=== PATIENT | male | born 1950 | race Caucasian/White ===

== ENCOUNTER 2020-08-13 20:20 | Inpatient (IN) | payer MEDICARE, OTHER ==
[~2020-08-13] VITALS: Ht 175.3 cm; Wt 71.6 kg
[2020-08-13] MEDS ORDERED: ACETAMINOPHEN 650 MG SUPP (TYLENOL) PR PRN (21:30)
[2020-08-13] MEDS ORDERED: PHARMACY TO DOSE IV SCH (21:30)
--- NOTE | 2020-08-13 21:40 | Progress Note ---
Progress Note This is a 70yoWM clinic patient of Dr Dave known to me from prior senior behavioral unit admit 04/2019 who has a h/o severe COPD and PNA who [place] [facility] with [place]ezing and in acute respiratory insufficiency. Hour long nebs helped a lot but he remained severely wheezy. IV steroids initiated along with empiric abx for atypical PNA and was swabbed for COVID and rapid was negative but PCT pending since he has not had COVID vaccine. He is and is a marie. He is a current smoker. His , Melissa, has been updated at [phone] and I updated her on details and the critical nature of his illness. She reports he has been wheezing for 1 week and has been working a lot outside on the fence from sun up and dun down until he could no longer go on so he came to the ER. Pancultured in ER. Cath in place. Diprivan initiated for sedation along with Fentanyl. CXR was checked for proper ETT placement initiated by Katie GAITAN. RENNY BATES DO August 13, 2020 21:40
[2020-08-13] MEDS ORDERED: NS IV 1000 ML 1,000 ML ONE (23:06)
[2020-08-13] MEDS ORDERED: PROPOFOL DRIP (ICU) 100 ML IV ONE (23:20)
[2020-08-13] MEDS ORDERED: NOREPINEPHRINE 8 MG/250 ML 250 ML IV ONE (23:20)
[2020-08-13 23:25] VITALS: BP 161/53
[2020-08-14] VITALS (7 sets, daily range): BP systolic 98–161; BP diastolic 43–79
[2020-08-14] MEDS: PROPOFOL DRIP (ICU) 100 ML IV SCH ×6 (00:11→21:38)
[2020-08-14] MEDS: NS IV 1000 ML 1,000 ML IV SCH ×5 (00:19→21:38)
[2020-08-14] MEDS ORDERED: NS IV 500 ML 500 ML ONE (00:46)
[2020-08-14] MEDS ORDERED: VANCOMYCIN 1000 MG/VIAL ONE (00:46)
[2020-08-14] MEDS ORDERED: VANCOMYCIN 500 MG/VIAL IV ONE (00:46)
[2020-08-14] MEDS: NOREPINEPHRINE 8 MG/250 ML 250 ML IV SCH ×2 (00:52→17:21)
[2020-08-14 00:55] LABS: BASOPHILS # (AUTO) 0.1 10^3/uL (0.0-0.1); BASOPHILS % (AUTO) 0 % (0-10); EOSINOPHILS # (AUTO) 0.2 10^3/uL (0.0-0.3); EOSINOPHILS % (AUTO) 2 % (0-10); HEMATOCRIT 42 % (40-54); HEMOGLOBIN 13.6 g/dL (13.3-17.7); LYMPHOCYTES # (AUTO) 0.6 10^3/uL (1.0-4.0); LYMPHOCYTES % (AUTO) 4 % (12-44); MEAN CORPUSCULAR HEMOGLOBIN 31 pg (25-34); MEAN CORPUSCULAR HGB CONC 32 g/dL (32-36); MEAN CORPUSCULAR VOLUME 96 fL (80-99); MEAN PLATELET VOLUME 9.9 fL (9.0-12.2); MONOCYTES # (AUTO) 0.5 10^3/uL (0.0-1.0); MONOCYTES % (AUTO) 4 % (0-12); NEUTROPHILS # (AUTO) 12.1 10^3/uL (1.8-7.8); NEUTROPHILS % (AUTO) 89 % (42-75); PLATELET COUNT 169 10^3/uL (130-400); WHITE BLOOD COUNT 13.6 10^3/uL (4.3-11.0)
[2020-08-14] MEDS ORDERED: CEFEPIME 1,000 MG/SWFI 10 ML IV PUSH IV ONE ×2 (01:00)
[2020-08-14 01:08] LABS: ALBUMIN < 0.4 GM/DL (3.2-4.5); CHLORIDE 105 MMOL/L (98-107); POTASSIUM 3.8 MMOL/L (3.6-5.0); SODIUM 137 MMOL/L (135-145)
[2020-08-14 01:10] LABS: CALCIUM 7.8 MG/DL (8.5-10.1); GLUCOSE 201 MG/DL (70-105); TRIGLYCERIDES 124 MG/DL (<150)
[2020-08-14 01:12] LABS: CARBON DIOXIDE 17 MMOL/L (21-32)
[2020-08-14 01:13] LABS: BILIRUBIN,TOTAL 1.5 MG/DL (0.1-1.0)
[2020-08-14 01:14] LABS: ALKALINE PHOSPHATASE 52 U/L (40-136); CREATININE SERUM 1.02 MG/DL (0.60-1.30); GFR ESTIMATED > 60
[2020-08-14 01:15] LABS: BUN/CREATININE RATIO 18
[2020-08-14 01:17] LABS: ALANINE AMINOTRANSFERASE 10 U/L (0-55)
[2020-08-14] MEDS ORDERED: inSUlin ASPART (NovoLOG) 1 UNIT/0.01 ML (CHARGE PER UNIT) ONE (01:26)
[2020-08-14] MEDS ORDERED: VANCOMYCIN INJECTION 1,500 MG in NS IV 500 ML 500 ML IV ONE (01:30)
[2020-08-14] MEDS: inSUlin ASPART (NovoLOG) 1 UNIT/0.01 ML (CHARGE PER UNIT) SC SCH ×4 (01:36→17:36)
[2020-08-14 01:42] LABS: TOTAL PROTEIN 6.1 GM/DL (6.4-8.2)
[2020-08-14 01:43] LABS: BAND NEUTROPHILS 8 %; LYMPHOCYTES % (MANUAL) 2 %; MONOCYTES % (MANUAL) 3 %; NEUTROPHILS % (MANUAL) 87 %; RBC MORPH NORMAL
[2020-08-14] MEDS ORDERED: RT-ALBUTEROL/IPRATROPIUM 3 ML (DUONEB) VIAL INH PRN (02:00)
[2020-08-14] MEDS: RT-ALBUTEROL/IPRATROPIUM 3 ML (DUONEB) VIAL INH SCH ×6 (02:09→22:50)
[2020-08-14 05:29] LABS: BASOPHILS % (AUTO) 0 % (0-10); EOSINOPHILS % (AUTO) 0 % (0-10); HEMATOCRIT 43 % (40-54); HEMOGLOBIN 14.1 g/dL (13.3-17.7); LYMPHOCYTES # (AUTO) 0.8 10^3/uL (1.0-4.0); LYMPHOCYTES % (AUTO) 6 % (12-44); MEAN CORPUSCULAR HEMOGLOBIN 31 pg (25-34); MEAN CORPUSCULAR HGB CONC 33 g/dL (32-36); MEAN CORPUSCULAR VOLUME 95 fL (80-99); MEAN PLATELET VOLUME 10.2 fL (9.0-12.2); MONOCYTES # (AUTO) 0.6 10^3/uL (0.0-1.0); MONOCYTES % (AUTO) 4 % (0-12); NEUTROPHILS # (AUTO) 12.7 10^3/uL (1.8-7.8); NEUTROPHILS % (AUTO) 89 % (42-75); PLATELET COUNT 178 10^3/uL (130-400); WHITE BLOOD COUNT 14.2 10^3/uL (4.3-11.0)
[2020-08-14 05:30] LABS: ABG BASE EXCESS -4.9 MMOL/L (-2.5-2.5); ABG OXYGEN SATURATION 95 % (94-100); ABG PCO2 46 MMHG (35-45); ABG PO2 69 MMHG (79-93); ABG TCO2 22.5 MMOL/L (21.0-31.0)
[2020-08-14 05:32] LABS: ABG PH 7.28 (7.37-7.43); ALLENS TEST ART LINE; INSPIRED O2 30%; VENTILATOR NO
--- NOTE | 2020-08-14 05:44 | History & Physical ---
History of Present Illness HPI/Chief Complaint CC: Respiratory failure from AECOPD HPI: This is a 70yoWM clinic Pt of Dr. Dave who has a PMH of COPD and Parkinsons, he underwent emergency intubation due to rapid decline in status while at [place] [facility] to ICU admission. Central line is functioning well, procalcitonin at 0.87, IV steroids maintained, OG tube is placed and will start tube feedings today. Cefepime and Vancomycin maintained and sputum on preliminary culture at [facility] [place] shows Gram + Cocci. Source: RN/MD, old records Exam Limitations: clinical condition Date Seen 08/14/20 Time Seen by a Provider: 09:00 Attending Physician Gayle Capps DO PCP Referring Physician Date of Admission August 13, 2020 at 23:23 Home Medications & Allergies Home Medications Reviewed patient Home Medication Reconciliation performed by pharmacy medication reconciliations auto glass technician and/or nursing. Patients Allergies have been reviewed. Allergies Allergies Coded Allergies codeine (Verified Allergy, Unknown, 08/13/20) Past Ncfyqhv-Wdoslw-Fjhixt Hx Past Med/Social Hx: Reviewed Nursing Past Med/Soc Hx, Reviewed and Corrections made Patient Social History Marrital Status: Employed/Student: retired Alcohol Use: Denies Use Smoking Status: Current Everyday Smoker Past Medical History Respiratory: COPD Cardiac: Hypertension Neurological: Parkinson's Disease Genitourinary: Benign Prostatic Hyperpl Gastrointestinal: Chronic Constipation Musculoskeletal: Arthritis Review of Systems Constitutional: see HPI Physical Exam Physical Exam Vital Signs Vital Signs - First Documented 08/13/20 08/13/20 08/14/20 08/14/20 11:45 23:25 00:11 14:06 Temp 35.6 Pulse 55 Resp 16 B/P (MAP) 144/58 Pulse Ox 85 O2 Delivery Mechanical Ventilator O2 Flow Rate 30.00 FiO2 40 Capillary Refill : Height, Weight, BMI Height: '" Weight: lbs. oz. kg; 25.70 BMI Method: General Appearance: No Apparent Distress, WD/WN, Chronically ill, Other (intubated and sedated) Respiratory: No Accessory Muscle Use, No Respiratory Distress, Crackles, Decreased Breath Sounds, Wheezing Cardiovascular: Regular Rate, Rhythm Neurologic/Psychiatric: Other (sedated) Results Results/Procedures Labs Laboratory Tests 08/14/20 00:35 08/14/20 05:10 08/15/20 03:30 Patient resulted labs reviewed. Assessment/Plan Admission Diagnosis Assessment: AECOPD causing respiratory fatigue and intubation Smoker Parkinson's Infiltrates c/w PNA empirically placed on abx Leukocytosis Plan: Vent IV abx Supportive care Complex case TF to start Admission Status: Inpatient Order (span 2 midnights) Reason for Inpatient Admission: vent Diagnosis/Problems Diagnosis/Problems (1) Respiratory failure (2) COPD exacerbation (3) Smoker (4) Parkinson disease GAYLE CAPPS DO August 14, 2020 05:44
[2020-08-14 05:45] LABS: ALBUMIN 3.4 GM/DL (3.2-4.5); CHLORIDE 107 MMOL/L (98-107); POTASSIUM 3.6 MMOL/L (3.6-5.0); SODIUM 138 MMOL/L (135-145)
[2020-08-14 05:47] LABS: CALCIUM 7.7 MG/DL (8.5-10.1)
[2020-08-14 05:48] LABS: GLUCOSE 207 MG/DL (70-105); TOTAL PROTEIN 6.1 GM/DL (6.4-8.2)
[2020-08-14 05:49] LABS: CARBON DIOXIDE 18 MMOL/L (21-32)
[2020-08-14 05:50] LABS: BILIRUBIN,TOTAL 0.8 MG/DL (0.1-1.0)
[2020-08-14 05:51] LABS: ALKALINE PHOSPHATASE 54 U/L (40-136); PHOSPHORUS 2.1 MG/DL (2.3-4.7)
[2020-08-14 05:52] LABS: CREATININE SERUM 0.92 MG/DL (0.60-1.30); GFR ESTIMATED > 60
[2020-08-14 05:53] LABS: BUN/CREATININE RATIO 18
[2020-08-14 05:54] LABS: ALANINE AMINOTRANSFERASE 12 U/L (0-55); MAGNESIUM 2.1 MG/DL (1.6-2.4)
[2020-08-14] MEDS: KCL 20 MEQ TAB (K-DUR) PO SCH (06:03)
[2020-08-14] MEDS: POTASSIUM CL 10MEQ/50ML IVPB 50 ML IV SCH ×3 (06:03→07:45)
[2020-08-14] MEDS: MAGNESIUM 1 GM/100 ML IVPB 100 ML IV SCH (06:03)
[2020-08-14] MEDS: CEFEPIME 1,000 MG/SWFI 10 ML IV PUSH IV SCH ×6 (06:11→18:20)
--- NOTE | 2020-08-14 07:26 | Diagnostic Imaging Report ---
EXAMINATION: Chest 1 view HISTORY: Shortness of breath. COMPARISON: None. FINDINGS: Endotracheal tube is visualized approximately 2 cm above the alicia. A right internal jugular central line is seen with the tip overlying the cavoatrial juncture. The lung volumes are normal. No focal consolidation is seen. No large pleural effusion or pneumothorax is seen. The cardiomediastinal silhouette is normal in size and contour. No acute osseous abnormality is seen. IMPRESSION: 1. Endotracheal tube approximately 2 cm above the alicia. Consider retracting 2 cm. Appropriate configuration of the right internal jugular central line. 2. No focal consolidation or pleural effusion. Dictated by: Dictated on workstation # [id number]
--- NOTE | 2020-08-14 08:17 | Diagnostic Imaging Report ---
Portable erect AP chest at 5:01. INDICATION: Respiratory distress The heart is stable in size when compared to the prior exam of 08/13/2020. The central pulmonary vasculature remains prominent and there may be an element of mild pulmonary congestion present. There is still no focal consolidation to suggest pneumonia nor is any evidence for significant pleural effusion. There is a 2 cm oval density overlying the left upper lung. This finding was not present on the prior exam and could be extraneous to the patient. The possibility that this is related to a small focus of pneumonia should also be considered. Followup study would be recommended for continued evaluation. The mediastinum is not widened. The prior exam noted that the patient had been intubated and suggested the ET tube to be retracted approximately 2 cm. On this exam the tip of the ET tube overlies the distal alicia approximately 1.8 cm cephalad to the alicia. I would recommend that the tube be retracted 2 cm. The central venous catheter on the right seen previously is again evident and no different. There is now an NG line in place. The tip of line is not visualized but the line does extend below the diaphragm. The mediastinum is not widened. The osseous structures are intact. IMPRESSION: 1. The overall appearance of the chest is stable when compared to the prior study. No new abnormality has developed. 3. The small oval density overlying the left upper lung may be extraneous to the patient. Recommendations as above. 3. The ET tube should be retracted approximately 2 cm. Called to Vania at 8:13 a.m. by cvb. Dictated by: Dictated on workstation # [id number]
--- NOTE | 2020-08-14 08:46 | Pulmonary Consultation ---
History of Present Illness History of Present Illness Date Seen by Provider: August 14, 2020 Time Seen by Provider: 08:41 Date of Admission August 13, 2020 at 23:23 Allergies and Home Medications Allergies Coded Allergies: codeine (Verified Allergy, Unknown, 08/13/20) Home Medications Albuterol Sulfate 1 Puff Puff, 1 PUFF IH Q6H PRN for SHORTNESS OF BREATH, (Reported) Carbidopa/Levodopa 1 Each Tablet.er, 1 EA PO QID, (Reported) Fluticasone Propionate 9.9 Ml [place].susp, 1 SPRAY NS BID, (Reported) Fluticasone/Salmeterol 1 Each Blst.w.dev, 1 PUFF INH BID, (Reported) Gabapentin 300 Mg Capsule, 300 MG PO TID, (Reported) Ibuprofen 800 Mg Tablet, 800 MG PO Q8H PRN for PAIN-MILD, (Reported) Lisinopril 5 Mg Tablet, 5 MG PO DAILY, (Reported) Lovastatin 20 Mg Tablet, 20 MG PO 1800 W/MEAL, (Reported) Mirtazapine 15 Mg Tablet, 15 MG PO HS PRN for SLEEP, (Reported) Paroxetine HCl 20 Mg Tablet, 20 MG PO DAILY, (Reported) Tizanidine HCl 2 Mg Tablet, 2 MG PO Q8H PRN for SPASMS, (Reported) Past Medical/Social/Family Hx Current Status Communicates: Unable To Communicate Primary Language: Tuvaluan Preferred Spoken Language: Tuvaluan Review of Systems Constitutional: see HPI EENTM: see HPI Respiratory: see HPI Cardiovascular: see HPI Gastrointestinal: see HPI Genitourinary: see HPI Musculoskeletal: see HPI Skin: see HPI Psychiatric/Neurological: See HPI Sepsis Event Evaluation Height, Weight, BMI Height: '" Weight: lbs. oz. kg; 25.70 BMI Method: Exam Exam Vital Signs Date Time Temp Pulse Resp B/P (MAP) Pulse Ox O2 Delivery O2 Flow Rate FiO2 08/14/20 07:00 47 23 96 Mechanical Ventilator 30.00 08/14/20 07:00 52 08/14/20 06:16 46 23 95 30 08/14/20 06:00 44 24 96 Mechanical Ventilator 30.00 08/14/20 05:15 51 118/51 08/14/20 05:00 57 14 89 Mechanical Ventilator 30.00 08/14/20 04:00 Mechanical Ventilator 30 08/14/20 04:00 49 26 92 Mechanical Ventilator 30.00 08/14/20 03:00 51 25 92 Mechanical Ventilator 30.00 08/14/20 02:12 49 08/14/20 02:09 57 23 96 30 08/14/20 02:00 48 20 93 Mechanical Ventilator 30.00 08/14/20 01:48 49 92 08/14/20 01:00 49 08/14/20 01:00 48 18 93 Mechanical Ventilator 30.00 08/14/20 00:52 49 112/43 08/14/20 00:11 49 144/58 08/14/20 00:00 54 10 96 Mechanical Ventilator 30.00 08/13/20 23:34 53 08/13/20 23:25 57 18 92 40 08/13/20 11:45 55 16 85 Mechanical Ventilator 30.00 I & O 08/14/20 07:00 Intake Total 0 ml Output Total 625 ml Balance -625 ml Height & Weight Height: '" Weight: lbs. oz. kg; 25.70 BMI Method: General Appearance: No Apparent Distress Results Lab Laboratory Tests 08/14/20 00:35 08/14/20 05:10 Assessment/Plan Assessment/Plan from H=P 70yoWM has a h/o severe COPD and PNA who presented to [place] [facility] [place] with wheezing and in acute respiratory insufficiency. IV steroids initiated along with empiric abx for atypical PNA and was swabbed for COVID and rapid was negative but PCT pending since he has not had COVID vaccine. He is and is a marie. He is a current smoker. Pancultured in ER. Available chart/ vitals / labs / Images reviewed afebrile Video assessment done using teleICU camera Discussed with RN VENT SETTINGS 400- 18 ( sp 21) -30% +5 , PAP 18 - 7.28ph Pressors: levo 0.03 Drips: none Sedation: propofol, fentanyl RASS -2 Lines : right radial nicho , R IJ cath 08/13 additional consultants: none Intubated: 08/13 A/P Acute resp failure with AECOPD - cont full support today , follow abg cxr am Shock - pn levo . will cont gentle hydration and try to wan off AECOPD - nebs , add steroids modest dose Infection - reportedly covid neg - sputum cx , bl;ood cx - ? done in other facility _ to follow - Ángel 08/13, cefepime 08/13 Diaz: 08/[address] Nutrition: start trophic feeding DVT proph: lovenox 40 SUP - H2bl Plans in collaboration with bedside consultants and IM MDs. Discussed with Dr. Capps Discussed with RN to reach out if any questions or concerns Critical Care: Ventilator Management Time spent with patient (mins): 45 CORINNA WELLS MD August 14, 2020 08:46
[2020-08-14] MEDS: fentaNYL INJ 100 MCG/2 ML AMP IVP PRN ×4 (08:53→21:39)
[2020-08-14] MEDS: FAMOTIDINE 20MG/2ML IV (PEPCID) IVP SCH ×2 (08:54→21:37)
[2020-08-14] MEDS: ENOXAPARIN 40 MG/0.4 ML (LOVENOX) SYR SC SCH (08:55)
[2020-08-14] MEDS ORDERED: CEFEPIME INJECTION 2,000 MG in WATER (STERILE) FOR INJECTION 20 ML IV SCH (09:00)
[2020-08-14] MEDS ORDERED: RT-ALBUINH IH (09:35)
[2020-08-14] MEDS ORDERED: PARO20TA5 PO (09:35)
[2020-08-14] MEDS ORDERED: FLUT9.9S NS (09:35)
[2020-08-14] MEDS ORDERED: LOVA20TA2 PO (09:35)
[2020-08-14] MEDS ORDERED: TIZA-169 PO (09:35)
[2020-08-14] MEDS ORDERED: CARB1TAB40 PO (09:35)
[2020-08-14] MEDS ORDERED: MIRT15TA6 PO (09:35)
[2020-08-14] MEDS ORDERED: GABA300C PO (09:35)
[2020-08-14] MEDS ORDERED: LISI-729 PO (09:35)
[2020-08-14] MEDS ORDERED: IBUP-1780 PO (09:35)
[2020-08-14] MEDS ORDERED: FLUT1DIS26 INH (09:42)
--- NOTE | 2020-08-14 10:37 | Occ Therapy Progress Note ---
Therapy Progress Note Pt's order received/ chart reviewed. Pt is on mechanical ventilation at this time. OT to continue to monitor pt's status and initiate eval/ tx when medically stable and able to participate in skilled tx. BENJY LOGAN OTR August 14, 2020 10:37
[2020-08-14] MEDS: VANCOMYCIN INJECTION 1,250 MG in NS (IVPB) 250 ML IV SCH ×2 (10:53→23:01)
--- NOTE | 2020-08-14 11:00 | Physical Therapy Progress Note ---
Therapy Progress Note Patient currently intubated. PT to initiate treatment when patient is medically stable and able to actively participate with skilled therapy. KEREN LARA PT August 14, 2020 11:00
[2020-08-14] MEDS: methylPREDNISolone 40 MG/ML (Solu-MEDROL) VIAL IV SCH ×2 (11:24→17:36)
--- NOTE | 2020-08-14 13:06 | Consultation-Cardiology ---
HPI-Cardiology Cardiology Consultation: Date of Consultation 08/14/20 Date of Admission Attending Physician Gayle Capps DO Admitting Physician Consulting Physician Fabiola NAVARRO MD HPI: Time Seen by a Provider: 13:00 Chief Complaint: shortness of breath, AF This is a 70-year-old lady with no known history of cardiac or pulmonary disease. She is a non-smoker. No possible occupational hazards. She does live in a house with cats and dogs. Presented with significant shortness of breath. No chest pain. In respiratory distress requiring BiPAP. Pertinent family history is negative. In the ER on telemetry, brief episode of possible atrial fibrillation was noted. Eliquis was given. Review of Systems-Cardiology Review of Systems Constitutional: As described under HPI; No As described under HPI, No no symptoms reported, No chills, No fever, No lightheadedness Eyes: No As described under HPI, No no symptoms reported, No blindness, No blurred vision, No contact lenses, No drainage, No decreased acuity, No foreign body sensation, No pain, No vision change Ears/Nose/Throat: No As described under HPI, No no symptoms reported, No chronic hearing loss, No ear discharge, No ear pain, No nasal drainage, No ulcerations Respiratory: No no symptoms reported; As described under HPI; No As described under HPI, No cough; orthopnea; No shortness of breath, No SOB with excertion Cardiovascular: No no symptoms reported; As described under HPI; No As described under HPI, No chest pain, No edema, No irregular heart rate, No lightheadedness, No palpitations Gastrointestinal: No no symptoms reported, No As described under HPI, No abdomen distended, No abdominal pain, No blood streaked bowels, No constipation, No diarrhea, No nausea, No vomiting, No stool coloration changes Genitourinary: No As described under HPI, No burning, No dysuria, No discharge, No frequency, No flank pain, No hematuria, No urgency Skin: No rash, No skin related problems, No ulcerations Psychiatric/Neurological: No anxiety, No depression, No seizure, No focal weakness, No syncope Hematologic: No bleeding abnormalities [id number]-[id number]-Kadmrt Hx Past Medical History PMH As described under Assessment. Allergies and Home Medications Allergies Coded Allergies: codeine (Verified Allergy, Unknown, 08/13/20) Home Medications Albuterol Sulfate 1 Puff Puff, 1 PUFF IH Q6H PRN for SHORTNESS OF BREATH, ( Reported) Last Action: Reviewed Carbidopa/Levodopa 1 Each Tablet.er, 1 EA PO QID, (Reported) Last Action: Reviewed Fluticasone Propionate 9.9 Ml [place].susp, 1 SPRAY NS BID, (Reported) Last Action: Reviewed Fluticasone/Salmeterol 1 Each Blst.w.dev, 1 PUFF INH BID, (Reported) Last Action: Reviewed Gabapentin 300 Mg Capsule, 300 MG PO TID, (Reported) Last Action: Reviewed Ibuprofen 800 Mg Tablet, 800 MG PO Q8H PRN for PAIN-MILD, (Reported) Last Action: Reviewed Lisinopril 5 Mg Tablet, 5 MG PO DAILY, (Reported) Last Action: Reviewed Lovastatin 20 Mg Tablet, 20 MG PO 1800 W/MEAL, (Reported) Last Action: Reviewed Mirtazapine 15 Mg Tablet, 15 MG PO HS PRN for SLEEP, (Reported) Last Action: Reviewed Paroxetine HCl 20 Mg Tablet, 20 MG PO DAILY, (Reported) Last Action: Reviewed Tizanidine HCl 2 Mg Tablet, 2 MG PO Q8H PRN for SPASMS, (Reported) Last Action: Reviewed Patient Home Medication List Home Medication List Reviewed: Yes Physical Exam-Cardiology Physical Exam Vital Signs/I&O 08/14/20 08/14/20 08/14/20 08/14/20 01:48 02:00 02:09 02:12 Pulse 49 48 57 49 Resp 20 23 B/P (MAP) Pulse Ox 92 93 96 O2 Delivery Mechanical Ventilator O2 Flow Rate 30.00 FiO2 30 08/14/20 08/14/20 08/14/20 08/14/20 03:00 04:00 04:00 05:00 Pulse 51 49 57 Resp 25 26 14 B/P (MAP) Pulse Ox 92 92 89 O2 Delivery Mechanical Ventilator Mechanical Ventilator Mechanical Ventilator Mechanical Ventilator O2 Flow Rate 30.00 30.00 30.00 FiO2 30 08/14/20 08/14/20 08/14/20 08/14/20 05:15 06:00 06:16 07:00 Pulse 51 44 46 52 Resp 24 23 B/P (MAP) 118/51 Pulse Ox 96 95 O2 Delivery Mechanical Ventilator O2 Flow Rate 30.00 FiO2 30 08/14/20 08/14/20 08/14/20 08/14/20 07:00 08:00 09:00 09:33 Pulse 47 46 45 46 Resp 23 22 25 B/P (MAP) 98/79 Pulse Ox 96 97 94 O2 Delivery Mechanical Ventilator Mechanical Ventilator Mechanical Ventilator O2 Flow Rate 30.00 30.00 30.00 08/14/20 08/14/20 08/14/20 08/14/20 10:00 10:26 11:00 12:00 Pulse 55 43 44 42 Resp 18 21 18 19 B/P (MAP) Pulse Ox 96 96 96 97 O2 Delivery Mechanical Ventilator Mechanical Ventilator Mechanical Ventilator O2 Flow Rate 30.00 30.00 30.00 FiO2 30 08/14/20 12:48 Pulse 45 Capillary Refill : Constitutional: appears stated age, AAO x 3, apparent distress, well-developed, well-nourished HEENT: PERRL; No discharge; hearing is well preserved, oral hygience is good; No ulceration, No xanthelasmas are seen Neck: No carotid bruit; carotid pulses are 2 + bilaterally Respiratory: accessory muscle use, respiratory distress, wheezing Cardiovascular: regular rate-rhythm, S1 and S2; No diastolic murmur, No systolic murmur Gastrointestinal: soft, audible bowel sounds; No spleenomegaly Rectal: deferred Extremities: No clubbing, No cyanosis; no lower extremity edema bilateral; No significant edema Neurologic/Psychiatric: no motor/sensory deficits, alert, normal mood/affect, oriented x 3, power is 5/5 both on sides Skin: No rash, No ulcerations Data Review Labs Laboratory Tests 08/14/20 00:35: White Blood Count 13.6H, Red Blood Count 4.44, Hemoglobin 13.6, Hematocrit 42, Mean Corpuscular Volume 96, Mean Corpuscular Hemoglobin 31, Mean Corpuscular Hemoglobin Concent 32, Red Cell Distribution Width 13.3, Platelet Count 169, Mean Platelet Volume 9.9, Immature Granulocyte % (Auto) 1, Neutrophils (%) (Auto) 89H, Lymphocytes (%) (Auto) 4L, Monocytes (%) (Auto) 4, Eosinophils (%) (Auto) 2, Basophils (%) (Auto) 0, Neutrophils # (Auto) 12.1H, Lymphocytes # (Auto) 0.6L, Monocytes # (Auto) 0.5, Eosinophils # (Auto) 0.2, Basophils # (Auto) 0.1, Immature Granulocyte # (Auto) 0.2H, Neutrophils % (Manual) 87, Lymphocytes % (Manual) 2, Monocytes % (Manual) 3, Band Neutrophils 8, Blood Morphology Comment NORMAL, Sodium Level 137, Potassium Level 3.8, Chloride Level 105, Carbon Dioxide Level 17L, Anion Gap 15H, Blood Urea Nitrogen 18, Creatinine 1.02, Estimat Glomerular Filtration Rate > 60, BUN/Creatinine Ratio 18, Glucose Level 201H, Lactic Acid Level 0.87, Calcium Level 7.8L, Corrected Calcium 10.7H, Total Bilirubin 1.5H, Aspartate Amino Transf (AST/SGOT) 14, Alanine Aminotransferase (ALT/SGPT) 10, Alkaline Phosphatase 52, Total Protein 6.1L, Albumin < 0.4L, Triglycerides Level 124 08/14/20 05:10: White Blood Count 14.2H, Red Blood Count 4.52, Hemoglobin 14.1, Hematocrit 43, Mean Corpuscular Volume 95, Mean Corpuscular Hemoglobin 31, Mean Corpuscular Hemoglobin Concent 33, Red Cell Distribution Width 13.2, Platelet Count 178, Mean Platelet Volume 10.2, Immature Granulocyte % (Auto) 1, Neutrophils (%) (Auto) 89H, Lymphocytes (%) (Auto) 6L, Monocytes (%) (Auto) 4, Eosinophils (%) (Auto) 0, Basophils (%) (Auto) 0, Neutrophils # (Auto) 12.7H, Lymphocytes # (Auto) 0.8L, Monocytes # (Auto) 0.6, Eosinophils # (Auto) 0.0, Basophils # (Auto) 0.0, Immature Granulocyte # (Auto) 0.1, Sodium Level 138, Potassium Level 3.6, Chloride Level 107, Carbon Dioxide Level 18L, Anion Gap 13, Blood Urea Nitrogen 17, Creatinine 0.92, Estimat Glomerular Filtration Rate > 60, BUN/Creatinine Ratio 18, Glucose Level 207H, Calcium Level 7.7L, Corrected Calcium 8.2L, Total Bilirubin 0.8, Aspartate Amino Transf (AST/SGOT) 13, Alanine Aminotransferase (ALT/SGPT) 12, Alkaline Phosphatase 54, Total Protein 6.1L, Albumin 3.4, Blood Gas Puncture Site RIGHT RADIAL, Blood Gas Patient Temperature 36.0, Arterial Blood pH 7.28*L, Arterial Blood Partial Pressure CO2 46H, Arterial Blood Partial Pressure O2 69L, Arterial Blood HCO3 21L, Arterial Blood Total CO2 22.5, Arterial Blood Oxygen Saturation 95, Arterial Blood Base Excess -4.9L, Ricky Test ART LINE, Blood Gas Ventilator Setting NO, Blood Gas Inspired Oxygen 30%, Phosphorus Level 2.1L, Magnesium Level 2.1, Procalcitonin 0.87H 08/14/20 11:19: Glucometer 168H ECG Impression ECG Initial ECG Rhythm: Normal Sinus A/P-Cardiology Assessment/Admission Diagnosis Acute respiratory failure, respiratory acidosis, Brief episodes of possible paroxysmal atrial fibrillation, Hypertension Plan Very likely pulmonary in origin. However we will still perform an echocardiogram to assess LV systolic and diastolic function. With a BNP of 85, florid congestive heart failure is very unlikely. Acute respiratory acidosis. Patient is on BiPAP. Still in respiratory distress. Brief episodes of paroxysmal atrial fibrillation. The ER attending discussed wi th the patient and family and Eliquis was started. However we will continue to review telemetry. Rate is well controlled and in sinus with frequent PACs. Rate controlling agent is not required. Thank you for your consultation. Please call me if you have any questions. Hollis Navarro MD, FACP, FACC, FSCAI, FHRS, CCDS Interventional Cardiology Cardiac Electrophysiology Vascular Medicine and Endovascular Interventions Fabiola NAVARRO MD August 14, 2020 13:05
--- NOTE | 2020-08-14 13:11 | Consultation-Cardiology ---
HPI-Cardiology Cardiology Consultation: Date of Consultation 08/14/20 Date of Admission Attending Physician Gayle Capps DO Admitting Physician Consulting Physician Fabiola NAVARRO MD HPI: Time Seen by a Provider: 13:11 Chief Complaint: Bradycardia This is a 70-year-old gentleman with severe COPD and pneumonia. Intubated/ventilated. Episodes of bradycardia noted. Rhythm shows sinus bradycardia. Lowest heart rate of 43 bpm. Review of Systems-Cardiology Review of Systems Constitutional: As described under HPI; No no symptoms reported, No chills, No fever, No lightheadedness Eyes: No As described under HPI, No no symptoms reported, No blindness, No blurred vision, No contact lenses, No drainage, No decreased acuity, No foreign body sensation, No pain, No vision change Ears/Nose/Throat: No As described under HPI, No no symptoms reported, No chronic hearing loss, No ear discharge, No ear pain, No nasal drainage, No ulcerations Respiratory: No no symptoms reported; As described under HPI; No cough; orthopnea; No shortness of breath, No SOB with excertion Cardiovascular: No no symptoms reported; As described under HPI; No chest pain, No edema, No irregular heart rate, No lightheadedness, No palpitations Gastrointestinal: No no symptoms reported, No As described under HPI, No abdomen distended, No abdominal pain, No blood streaked bowels, No constipation, No diarrhea, No nausea, No vomiting, No stool coloration changes Genitourinary: No As described under HPI, No burning, No dysuria, No discharge, No frequency, No flank pain, No hematuria, No urgency Skin: No rash, No skin related problems, No ulcerations Psychiatric/Neurological: No anxiety, No depression, No seizure, No focal weakness, No syncope Hematologic: No bleeding abnormalities [id number] Hx Past Medical History PMH As described under Assessment. Allergies and Home Medications Allergies Coded Allergies: codeine (Verified Allergy, Unknown, 08/13/20) Home Medications Albuterol Sulfate 1 Puff Puff, 1 PUFF IH Q6H PRN for SHORTNESS OF BREATH, (Reported) Last Action: Reviewed Carbidopa/Levodopa 1 Each Tablet.er, 1 EA PO QID, (Reported) Last Action: Reviewed Fluticasone Propionate 9.9 Ml [place].susp, 1 SPRAY NS BID, (Reported) Last Action: Reviewed Fluticasone/Salmeterol 1 Each Blst.w.dev, 1 PUFF INH BID, (Reported) Last Action: Reviewed Gabapentin 300 Mg Capsule, 300 MG PO TID, (Reported) Last Action: Reviewed Ibuprofen 800 Mg Tablet, 800 MG PO Q8H PRN for PAIN-MILD, (Reported) Last Action: Reviewed Lisinopril 5 Mg Tablet, 5 MG PO DAILY, (Reported) Last Action: Reviewed Lovastatin 20 Mg Tablet, 20 MG PO 1800 W/MEAL, (Reported) Last Action: Reviewed Mirtazapine 15 Mg Tablet, 15 MG PO HS PRN for SLEEP, (Reported) Last Action: Reviewed Paroxetine HCl 20 Mg Tablet, 20 MG PO DAILY, (Reported) Last Action: Reviewed Tizanidine HCl 2 Mg Tablet, 2 MG PO Q8H PRN for SPASMS, (Reported) Last Action: Reviewed Patient Home Medication List Home Medication List Reviewed: Yes Physical Exam-Cardiology Physical Exam Vital Signs/I&O 08/14/20 08/14/20 08/14/20 08/14/20 01:48 02:00 02:09 02:12 Pulse 49 48 57 49 Resp 20 23 B/P (MAP) Pulse Ox 92 93 96 O2 Delivery Mechanical Ventilator O2 Flow Rate 30.00 FiO2 30 08/14/20 08/14/20 08/14/20 08/14/20 03:00 04:00 04:00 05:00 Pulse 51 49 57 Resp 25 26 14 B/P (MAP) Pulse Ox 92 92 89 O2 Delivery Mechanical Ventilator Mechanical Ventilator Mechanical Ventilator Mechanical Ventilator O2 Flow Rate 30.00 30.00 30.00 FiO2 30 08/14/20 08/14/20 08/14/20 08/14/20 05:15 06:00 06:16 07:00 Pulse 51 44 46 52 Resp 24 23 B/P (MAP) 118/51 Pulse Ox 96 95 O2 Delivery Mechanical Ventilator O2 Flow Rate 30.00 FiO2 30 08/14/20 08/14/20 08/14/20 08/14/20 07:00 08:00 09:00 09:33 Pulse 47 46 45 46 Resp 23 22 25 B/P (MAP) 98/79 Pulse Ox 96 97 94 O2 Delivery Mechanical Ventilator Mechanical Ventilator Mechanical Ventilator O2 Flow Rate 30.00 30.00 30.00 08/14/20 08/14/20 08/14/20 08/14/20 10:00 10:26 11:00 12:00 Pulse 55 43 44 42 Resp 18 21 18 19 B/P (MAP) Pulse Ox 96 96 96 97 O2 Delivery Mechanical Ventilator Mechanical Ventilator Mechanical Ventilator O2 Flow Rate 30.00 30.00 30.00 FiO2 30 08/14/20 12:48 Pulse 45 Capillary Refill : Constitutional: appears stated age, well-developed, well-nourished, other (Intubated/ventilated) HEENT: PERRL; No discharge; hearing is well preserved, oral hygience is good; No ulceration, No xanthelasmas are seen Neck: No carotid bruit; carotid pulses are 2 + bilaterally Respiratory: other (Intubated/ventilated.) Cardiovascular: regular rate-rhythm, bradycardia, S1 and S2; No diastolic murmur, No systolic murmur Gastrointestinal: soft, audible bowel sounds; No spleenomegaly Rectal: deferred Extremities: No clubbing, No cyanosis; no lower extremity edema bilateral; No significant edema Neurologic/Psychiatric: other (Intubated/ventilated.) Skin: No rash, No ulcerations Data Review Labs Laboratory Tests 08/14/20 00:35: White Blood Count 13.6H, Red Blood Count 4.44, Hemoglobin 13.6, Hematocrit 42, Mean Corpuscular Volume 96, Mean Corpuscular Hemoglobin 31, Mean Corpuscular Hemoglobin Concent 32, Red Cell Distribution Width 13.3, Platelet Count 169, Mean Platelet Volume 9.9, Immature Granulocyte % (Auto) 1, Neutrophils (%) (Auto) 89H, Lymphocytes (%) (Auto) 4L, Monocytes (%) (Auto) 4, Eosinophils (%) (Auto) 2, Basophils (%) (Auto) 0, Neutrophils # (Auto) 12.1H, Lymphocytes # (Auto) 0.6L, Monocytes # (Auto) 0.5, Eosinophils # (Auto) 0.2, Basophils # (Auto) 0.1, Immature Granulocyte # (Auto) 0.2H, Neutrophils % (Manual) 87, Lymphocytes % (Manual) 2, Monocytes % (Manual) 3, Band Neutrophils 8, Blood Morphology Comment NORMAL, Sodium Level 137, Potassium Level 3.8, Chloride Level 105, Carbon Dioxide Level 17L, Anion Gap 15H, Blood Urea Nitrogen 18, Creatinine 1.02, Estimat Glomerular Filtration Rate > 60, BUN/Creatinine Ratio 18, Glucose Level 201H, Lactic Acid Level 0.87, Calcium Level 7.8L, Corrected Calcium 10.7H, Total Bilirubin 1.5H, Aspartate Amino Transf (AST/SGOT) 14, Alanine Aminotransferase (ALT/SGPT) 10, Alkaline Phosphatase 52, Total Protein 6.1L, Albumin < 0.4L, Triglycerides Level 124 08/14/20 05:10: White Blood Count 14.2H, Red Blood Count 4.52, Hemoglobin 14.1, Hematocrit 43, Mean Corpuscular Volume 95, Mean Corpuscular Hemoglobin 31, Mean Corpuscular Hemoglobin Concent 33, Red Cell Distribution Width 13.2, Platelet Count 178, Mean Platelet Volume 10.2, Immature Granulocyte % (Auto) 1, Neutrophils (%) (Auto) 89H, Lymphocytes (%) (Auto) 6L, Monocytes (%) (Auto) 4, Eosinophils (%) (Auto) 0, Basophils (%) (Auto) 0, Neutrophils # (Auto) 12.7H, Lymphocytes # (Auto) 0.8L, Monocytes # (Auto) 0.6, Eosinophils # (Auto) 0.0, Basophils # (Auto) 0.0, Immature Granulocyte # (Auto) 0.1, Sodium Level 138, Potassium Level 3.6, Chloride Level 107, Carbon Dioxide Level 18L, Anion Gap 13, Blood Urea Nitrogen 17, Creatinine 0.92, Estimat Glomerular Filtration Rate > 60, BUN/Creatinine Ratio 18, Glucose Level 207H, Calcium Level 7.7L, Corrected Calcium 8.2L, Total Bilirubin 0.8, Aspartate Amino Transf (AST/SGOT) 13, Alanine Aminotransferase (ALT/SGPT) 12, Alkaline Phosphatase 54, Total Protein 6.1L, Albumin 3.4, Blood Gas Puncture Site RIGHT RADIAL, Blood Gas Patient Temperature 36.0, Arterial Blood pH 7.28*L, Arterial Blood Partial Pressure CO2 46H, Arterial Blood Partial Pressure O2 69L, Arterial Blood HCO3 21L, Arterial Blood Total CO2 22.5, Arterial Blood Oxygen Saturation 95, Arterial Blood Base Excess -4.9L, Ricky Test ART LINE, Blood Gas Ventilator Setting NO, Blood Gas Inspired Oxygen 30%, Phosphorus Level 2.1L, Magnesium Level 2.1, Procalcitonin 0.87H 08/14/20 11:19: Glucometer 168H ECG Impression ECG Initial ECG Rhythm: S.Grayson A/P-Cardiology Assessment/Admission Diagnosis Acute respiratory failure, Sinus bradycardia, likely due to sedation. Hypertension Plan Sinus bradycardia with systolic blood pressure of 133 bpm. During my examination the heart rate was 53 bpm. We will continue to follow clinically. Echocardiogram. Defer treatment of acute respiratory failure and sepsis to the primary team and pulmonology. Thank you for your consultation. Please call me if you have any questions. Hollis Navarro MD, FACP, FACC, FSCAI, FHRS, CCDS Interventional Cardiology Cardiac Electrophysiology Vascular Medicine and Endovascular Interventions Fabiola NAVARRO MD August 14, 2020 13:11
[2020-08-15] MEDS: CEFEPIME 1,000 MG/SWFI 10 ML IV PUSH IV SCH ×8 (00:07→18:44)
[2020-08-15] MEDS: methylPREDNISolone 40 MG/ML (Solu-MEDROL) VIAL IV SCH ×4 (00:07→18:44)
[2020-08-15] MEDS: inSUlin ASPART (NovoLOG) 1 UNIT/0.01 ML (CHARGE PER UNIT) SC SCH ×4 (00:08→18:41)
[2020-08-15] MEDS: fentaNYL INJ 100 MCG/2 ML AMP IVP PRN ×5 (00:08→15:06)
[2020-08-15] MEDS: PROPOFOL DRIP (ICU) 100 ML IV SCH ×5 (02:01→19:57)
[2020-08-15] MEDS: RT-ALBUTEROL/IPRATROPIUM 3 ML (DUONEB) VIAL INH SCH ×6 (02:27→22:49)
[2020-08-15 02:28] VITALS: BP 104/64
[2020-08-15 03:37] LABS: BASOPHILS % (AUTO) 0 % (0-10); EOSINOPHILS % (AUTO) 0 % (0-10); HEMATOCRIT 40 % (40-54); HEMOGLOBIN 13.1 g/dL (13.3-17.7); LYMPHOCYTES # (AUTO) 0.3 10^3/uL (1.0-4.0); LYMPHOCYTES % (AUTO) 3 % (12-44); MEAN CORPUSCULAR HEMOGLOBIN 31 pg (25-34); MEAN CORPUSCULAR HGB CONC 33 g/dL (32-36); MEAN CORPUSCULAR VOLUME 94 fL (80-99); MEAN PLATELET VOLUME 10.4 fL (9.0-12.2); MONOCYTES # (AUTO) 0.9 10^3/uL (0.0-1.0); MONOCYTES % (AUTO) 8 % (0-12); NEUTROPHILS # (AUTO) 9.6 10^3/uL (1.8-7.8); NEUTROPHILS % (AUTO) 87 % (42-75); PLATELET COUNT 187 10^3/uL (130-400)
[2020-08-15 03:41] LABS: ABG BASE EXCESS -3.6 MMOL/L (-2.5-2.5); ABG OXYGEN SATURATION 97 % (94-100); ABG PCO2 41 MMHG (35-45); ABG PO2 100 MMHG (79-93); ABG TCO2 22.7 MMOL/L (21.0-31.0)
[2020-08-15 03:42] LABS: ABG PH 7.33 (7.37-7.43)
[2020-08-15 03:43] LABS: ALLENS TEST YES-POS; INSPIRED O2 30%; VENTILATOR NO
[2020-08-15 03:44] LABS: PATIENT TEMP 36.8
[2020-08-15 03:49] LABS: ALBUMIN 3.1 GM/DL (3.2-4.5); CHLORIDE 111 MMOL/L (98-107); SODIUM 140 MMOL/L (135-145)
[2020-08-15 03:51] LABS: CALCIUM 7.8 MG/DL (8.5-10.1); TRIGLYCERIDES 354 MG/DL (<150)
[2020-08-15 03:52] LABS: GLUCOSE 138 MG/DL (70-105); TOTAL PROTEIN 5.6 GM/DL (6.4-8.2)
[2020-08-15 03:53] LABS: BILIRUBIN,TOTAL 0.4 MG/DL (0.1-1.0); CARBON DIOXIDE 18 MMOL/L (21-32)
[2020-08-15 03:55] LABS: ALKALINE PHOSPHATASE 47 U/L (40-136); CREATININE SERUM 0.67 MG/DL (0.60-1.30); GFR ESTIMATED > 60; PHOSPHORUS 1.4 MG/DL (2.3-4.7)
[2020-08-15 03:56] LABS: BUN/CREATININE RATIO 19
[2020-08-15 03:58] LABS: ALANINE AMINOTRANSFERASE 10 U/L (0-55); MAGNESIUM 1.9 MG/DL (1.6-2.4)
[2020-08-15] MEDS: POTASSIUM CL 10MEQ/50ML IVPB 50 ML IV SCH (06:12)
[2020-08-15] MEDS: MAGNESIUM 1 GM/100 ML IVPB 100 ML IV SCH (06:12)
[2020-08-15] MEDS: KCL 20 MEQ TAB (K-DUR) PO SCH (06:12)
[2020-08-15] MEDS: NS IV 1000 ML 1,000 ML IV SCH ×3 (06:13→22:42)
[2020-08-15 06:31] VITALS: BP 105/44
--- NOTE | 2020-08-15 07:26 | Physical Therapy Progress Note ---
Therapy Progress Note Patient currently intubated. PT to initiate treatment when patient is medically stable and able to actively participate with skilled therapy. KANIKA SHEA PT August 15, 2020 07:26
--- NOTE | 2020-08-15 08:03 | Pulmonary Progress Note ---
Subjective Date Seen by a Provider: August 15, 2020 Subjective/Events-last exam 70 y/o male intubated for COPD and septic with pneumonia. Patient is on vancomycin and Cefapime Current vent settings: rate 18 TV: 400, PEEP 5, FIO2: 30% Being followed by cardiology Currently sedated on propofol and requiring small dose of levophed for BP support PE: resting comfortable in bed on the vent Pulse: 55-62 irregular BP: 106/44 by art line, 89/45 by cuff Labs: wbc: 11 hgb: 13.1 Plts: 187 Na 140 K: 4 Cl: 111 CO: 18 BUN: 13 Creat: 0.87 Glu: 138 AB.33/41/100/21 MEDS: lovenox and famotidne IMP: acute exacerbation of COPD with PNA and septic shock PLAN: currently requiring levophed to maintain MAP. ON DVT and GI prophylaxis Wean vent as feasable, currently good ABG on current settings Sepsis Event Evaluation Height, Weight, BMI Height: '" Weight: lbs. oz. kg; 25.70 BMI Method: Focused Exam Lactate Level 08/14/20 00:35: Lactic Acid Level 0.87 Exam Exam Vital Signs Date Time Temp Pulse Resp B/P (MAP) Pulse Ox O2 Delivery O2 Flow Rate FiO2 08/15/20 06:31 61 22 97 30 08/15/20 06:14 60 111/42 08/15/20 06:00 65 19 93 Mechanical Ventilator 50.00 08/15/20 05:00 Mechanical Ventilator 50.00 08/15/20 05:00 67 20 89 Mechanical Ventilator 50.00 08/15/20 04:00 74 24 89 Mechanical Ventilator 30.00 08/15/20 04:00 Mechanical Ventilator 30 08/15/20 03:00 87 20 93 Mechanical Ventilator 30.00 08/15/20 02:28 56 21 95 30 08/15/20 02:01 89 155/57 08/15/20 02:00 84 21 94 Mechanical Ventilator 30.00 08/15/20 01:00 85 19 92 Mechanical Ventilator 30.00 08/15/20 01:00 69 08/15/20 00:08 36.4 08/15/20 00:00 69 24 97 Mechanical Ventilator 30.00 08/14/20 23:59 Mechanical Ventilator 30 08/14/20 23:00 60 24 99 Mechanical Ventilator 30.00 08/14/20 22:50 61 23 95 30 08/14/20 22:00 61 21 95 Mechanical Ventilator 30.00 08/14/20 21:38 63 118/56 08/14/20 21:00 64 20 95 Mechanical Ventilator 30.00 08/14/20 20:00 60 20 93 Mechanical Ventilator 30.00 08/14/20 20:00 Mechanical Ventilator 30 08/14/20 19:21 35.8 08/14/20 19:00 55 08/14/20 19:00 54 18 94 Mechanical Ventilator 30.00 08/14/20 18:22 47 20 94 30 08/14/20 18:00 48 18 95 Mechanical Ventilator 30.00 08/14/20 17:37 52 123/49 08/14/20 17:00 52 19 94 Mechanical Ventilator 30.00 08/14/20 16:00 35.9 08/14/20 16:00 46 18 94 Mechanical Ventilator 30.00 08/14/20 15:23 Mechanical Ventilator 30 08/14/20 15:00 48 19 97 Mechanical Ventilator 30.00 08/14/20 14:10 44 22 95 30 08/14/20 14:06 35.6 08/14/20 14:00 48 17 93 Mechanical Ventilator 30.00 08/14/20 13:37 46 121/46 08/14/20 13:00 46 20 95 Mechanical Ventilator 30.00 08/14/20 12:48 45 08/14/20 12:00 42 19 97 Mechanical Ventilator 30.00 08/14/20 12:00 Mechanical Ventilator 30 08/14/20 11:00 44 18 96 Mechanical Ventilator 30.00 08/14/20 10:26 43 21 96 30 08/14/20 10:00 55 18 96 Mechanical Ventilator 30.00 08/14/20 09:33 46 98/79 08/14/20 09:00 45 25 94 Mechanical Ventilator 30.00 08/14/20 08:00 Mechanical Ventilator 30 08/14/20 08:00 46 22 97 Mechanical Ventilator 30.00 I & O 08/15/20 06:59 Intake Total 1352.5 ml Output Total 1325 ml Balance 27.5 ml Height & Weight Height: '" Weight: lbs. oz. kg; 25.70 BMI Method: General Appearance: No Apparent Distress, WD/WN, Chronically ill, Other (intubated and sedated) Respiratory: No Accessory Muscle Use, No Respiratory Distress, Crackles, Decreased Breath Sounds, Wheezing Cardiovascular: Regular Rate, Rhythm Neurologic/Psychiatric: Other (sedated) Results Lab Laboratory Tests 08/14/20 00:35 08/14/20 05:10 08/15/20 03:30 KAMILA CLARK MD August 15, 2020 08:03
--- NOTE | 2020-08-15 08:11 | Progress Note ---
Subjective Date Seen by a Provider: August 15, 2020 Time Seen by a Provider: 11:00 Subjective/Events-last exam Patient still on ventilator Attempted to call Melissa and update her but there was no answer and no voicemail available Check meds and labs Weaning off sedation causes agitation Antibiotics maintained Reviewed notes Check meds Focused Exam Lactate Level 08/14/20 00:35: Lactic Acid Level 0.87 Objective Exam Last Set of Vital Signs Vital Signs Date Time Temp Pulse Resp B/P (MAP) Pulse Ox O2 Delivery O2 Flow Rate FiO2 08/15/20 07:00 63 08/15/20 06:31 22 97 30 08/15/20 06:14 111/42 08/15/20 06:00 Mechanical Ventilator 50.00 08/15/20 00:08 36.4 Capillary Refill : I&O Intake and Output 08/15/20 00:00 Intake Total 1052.5 ml Output Total 1350 ml Balance -297.5 ml Intake Oral 0 ml IV Total 662.5 ml Tube Feeding 210 ml Other 180 ml Output Urine Total 1350 ml Daily Weight Change Unsure General: Other (Sedated and intubated) Lungs: Other (Wheezing and coarseness) Heart: Regular Rate Results Lab Laboratory Tests 08/14/20 11:19: Glucometer 168H 08/14/20 13:18: B-Type Natriuretic Peptide 53.8 08/14/20 17:24: Glucometer 147H 08/15/20 03:30: White Blood Count 11.0, Red Blood Count 4.19L, Hemoglobin 13.1L, Hematocrit 40, Mean Corpuscular Volume 94, Mean Corpuscular Hemoglobin 31, Mean Corpuscular Hemoglobin Concent 33, Red Cell Distribution Width 13.7, Platelet Count 187, Mean Platelet Volume 10.4, Immature Granulocyte % (Auto) 1, Neutrophils (%) (Auto) 87H, Lymphocytes (%) (Auto) 3L, Monocytes (%) (Auto) 8, Eosinophils (%) (Auto) 0, Basophils (%) (Auto) 0, Neutrophils # (Auto) 9.6H, Lymphocytes # (Auto) 0.3L, Monocytes # (Auto) 0.9, Eosinophils # (Auto) 0.0, Basophils # (Auto) 0.0, Immature Granulocyte # (Auto) 0.1, Blood Gas Puncture Site RIGHT RAD IAL, Blood Gas Patient Temperature 36.8, Arterial Blood pH 7.33*L, Arterial Blood Partial Pressure CO2 41, Arterial Blood Partial Pressure O2 100H, Arterial Blood HCO3 21L, Arterial Blood Total CO2 22.7, Arterial Blood Oxygen Saturation 97, Arterial Blood Base Excess -3.6L, Ricky Test YES-POS, Blood Gas Ventilator Setting NO, Blood Gas Inspired Oxygen 30%, Sodium Level 140, Potassium Level 4.0, Chloride Level 111H, Carbon Dioxide Level 18L, Anion Gap 11, Blood Urea Nitrogen 13, Creatinine 0.67, Estimat Glomerular Filtration Rate > 60, BUN/Creatinine Ratio 19, Glucose Level 138H, Calcium Level 7.8L, Corrected Calcium 8.5, Phosphorus Level 1.4L, Magnesium Level 1.9, Total Bilirubin 0.4, Aspartate Amino Transf (AST/SGOT) 10, Alanine Aminotransferase (ALT/SGPT) 10, Alkaline Phosphatase 47, Total Protein 5.6L, Albumin 3.1L, Triglycerides Level 354H Microbiology 08/14/20 Gram Stain - Final, Resulted 08/14/20 Sputum Culture - Preliminary, Resulted Probable Haemophilus 08/14/20 Blood Culture - Preliminary, Resulted No growth Assessment/Plan Assessment/Plan Assess & Plan/Chief Complaint Assessment: AECOPD causing respiratory fatigue and intubation Smoker Parkinson's Infiltrates c/w PNA empirically placed on abx Leukocytosis Plan: Vent IV abx Supportive care Complex case TF to start 08/15/2020: Vent management IV antibiotics IV steroids Sedation Diagnosis/Problems Diagnosis/Problems (1) Respiratory failure (2) COPD exacerbation (3) Smoker (4) Parkinson disease RENNY BATES DO August 15, 2020 08:11
[2020-08-15] MEDS ORDERED: TROUGH ORDER-PHARMACY XX NR (09:00)
[2020-08-15] MEDS: FAMOTIDINE 20MG/2ML IV (PEPCID) IVP SCH ×2 (09:30→19:57)
[2020-08-15] MEDS: ENOXAPARIN 40 MG/0.4 ML (LOVENOX) SYR SC SCH (09:31)
--- NOTE | 2020-08-15 09:34 | Diagnostic Imaging Report ---
INDICATION: Intubated. TECHNIQUE: Single view chest 3:13 AM. CORRELATION STUDY: 08/14/2020 FINDINGS: Endotracheal tube tip projects over the lower trachea but slightly retracted from prior. Gastric tube has slipped hemidiaphragm. Right IJ central line of the caval atrial junction. Heart size and mediastinum stable. Vasculature is overall increased from prior. Apparently interstitial infiltrates throughout both lung valdovinos overall increased. Asymmetric biapical opacities right greater than left. IMPRESSION: 1. Slight retraction endotracheal tube tip above the alicia and below the clavicles. 2. Increasing severity of vascular congestion and interstitial prominence does raise concern for underlying edema. Superimposed pneumonia not excluded. Dictated by: Dictated on workstation # [id number]
[2020-08-15 09:47] VITALS: BP 124/53
--- NOTE | 2020-08-15 10:00 | Occ Therapy Progress Note ---
Therapy Progress Note Patient remains intubated. PT to initiate treatment when patient is medically stable and able to actively participate with skilled therapy. BENJY LOGAN OTR August 15, 2020 10:00
[2020-08-15] MEDS: VANCOMYCIN INJECTION 1,250 MG in NS (IVPB) 250 ML IV SCH (11:16)
[2020-08-15] MEDS: NOREPINEPHRINE 8 MG/250 ML 250 ML IV SCH (11:17)
[2020-08-15 13:17] VITALS: BP 101/45
[2020-08-15] MEDS: fentaNYL DRIP PRE-MIX 250 ML IV SCH (16:23)
--- NOTE | 2020-08-15 17:04 | Cardiology Progress Note ---
Cardiology SOAP Progress Note Subjective: Intubated/ventilated. Objective: I&O/Vital Signs 08/15/20 08/15/20 08/15/20 08/15/20 06:00 06:14 06:31 07:00 Pulse 65 60 61 63 Resp 19 22 B/P (MAP) 111/42 Pulse Ox 93 97 O2 Delivery Mechanical Ventilator O2 Flow Rate 50.00 FiO2 30 08/15/20 08/15/20 08/15/20 08/15/20 07:00 08:00 08:00 09:00 Pulse 63 62 61 Resp 17 16 16 B/P (MAP) Pulse Ox 95 95 95 O2 Delivery Mechanical Ventilator Mechanical Ventilator Mechanical Ventilator Mechanical Ventilator O2 Flow Rate 50.00 50.00 50.00 FiO2 25 08/15/20 08/15/20 08/15/20 08/15/20 09:47 09:50 10:00 11:00 Pulse 53 58 60 60 Resp 18 15 18 B/P (MAP) 118/51 Pulse Ox 96 91 91 O2 Delivery Mechanical Ventilator Mechanical Ventilator O2 Flow Rate 50.00 25.00 FiO2 30 08/15/20 08/15/20 08/15/20 08/15/20 12:00 12:00 13:00 13:00 Pulse 56 60 63 Resp 18 16 B/P (MAP) Pulse Ox 92 92 O2 Delivery Mechanical Ventilator Mechanical Ventilator Mechanical Ventilator O2 Flow Rate 25.00 25.00 FiO2 25 08/15/20 08/15/20 08/15/20 08/15/20 13:17 13:57 14:00 15:00 Pulse 59 57 57 62 Resp 24 16 16 B/P (MAP) 110/49 Pulse Ox 92 91 92 O2 Delivery Mechanical Ventilator Mechanical Ventilator O2 Flow Rate 25.00 25.00 FiO2 25 08/15/20 00:00 Intake Total 852.5 ml Output Total 525 ml Balance 327.5 ml Constitutional: appears stated age, well-developed, well-nourished, other (Intubated/ventilated) Respiratory: other (Intubated/ventilated.) Cardiovascular: regular rate-rhythm, bradycardia, S1 and S2; No diastolic murmur, No systolic murmur Gastrointestional: soft, audible bowel sounds; No spleenomegaly Extremities: No clubbing, No cyanosis; no lower extremity edema bilateral; No significant edema Neurologic/Psychiatric: other (Intubated/ventilated.) Skin: No rash, No ulcerations Results/Procedures: Labs Laboratory Tests 08/14/20 17:24: Glucometer 147H 08/14/20 23:54: Glucometer 111H 08/15/20 03:30: White Blood Count 11.0, Red Blood Count 4.19L, Hemoglobin 13.1L, Hematocrit 40, Mean Corpuscular Volume 94, Mean Corpuscular Hemoglobin 31, Mean Corpuscular Hemoglobin Concent 33, Red Cell Distribution Width 13.7, Platelet Count 187, Mean Platelet Volume 10.4, Immature Granulocyte % (Auto) 1, Neutrophils (%) (Auto) 87H, Lymphocytes (%) (Auto) 3L, Monocytes (%) (Auto) 8, Eosinophils (%) (Auto) 0, Basophils (%) (Auto) 0, Neutrophils # (Auto) 9.6H, Lymphocytes # (Auto) 0.3L, Monocytes # (Auto) 0.9, Eosinophils # (Auto) 0.0, Basophils # (Auto) 0.0, Immature Granulocyte # (Auto) 0.1, Blood Gas Puncture Site RIGHT RADIAL, Blood Gas Patient Temperature 36.8, Arterial Blood pH 7.33*L, Arterial Blood Partial Pressure CO2 41, Arterial Blood Partial Pressure O2 100H, Arterial Blood HCO3 21L, Arterial Blood Total CO2 22.7, Arterial Blood Oxygen Saturation 97, Arterial Blood Base Excess -3.6L, Ricky Test YES-POS, Blood Gas Ventilator Setting NO, Blood Gas Inspired Oxygen 30%, Sodium Level 140, Potassium Level 4.0, Chloride Level 111H, Carbon Dioxide Level 18L, Anion Gap 11, Blood Urea Nitrogen 13, Creatinine 0.67, Estimat Glomerular Filtration Rate > 60, BUN/Creatinine Ratio 19, Glucose Level 138H, Calcium Level 7.8L, Corrected Calcium 8.5, Phosphorus Level 1.4L, Magnesium Level 1.9, Total Bilirubin 0.4, Aspartate Amino Transf (AST/SGOT) 10, Alanine Aminotransferase (ALT/SGPT) 10, Alkaline Phosphatase 47, Total Protein 5.6L, Albumin 3.1L, Triglycerides Level 354H 08/15/20 09:15: Vancomycin Level Trough 11.4 08/15/20 12:49: Glucometer 181H Microbiology 08/14/20 Gram Stain - Final, Complete 08/14/20 Sputum Culture - Final, Complete Haemophilus influenza 08/14/20 Blood Culture - Preliminary, Resulted No growth A/P: Assessment/Dx: Acute respiratory failure, Sinus bradycardia, likely due to sedation. Hypertension Plan: Sinus bradycardia with stable blood pressure. Heart rate during my examination was sinus at 59 bpm. Echocardiogram showed normal LV function Defer treatment of acute respiratory failure and sepsis to the primary team and pulmonology. Thank you for your consultation. Please call me if you have any questions. Hollis Navarro MD, FACP, FACC, FSCAI, FHRS, CCDS Interventional Cardiology Cardiac Electrophysiology Vascular Medicine and Endovascular Interventions Focused Exam Lactate Level 08/14/20 00:35: Lactic Acid Level 0.87 Fabiola NAVARRO MD August 15, 2020 17:04
--- NOTE | 2020-08-15 18:37 | Progress Note ---
Progress Note Assessment/Plan Date Seen by Provider: August 15, 2020 Events since last exam holding tube feeds due to high residuals Vitals Last set of Vitals Signs Vital Signs Date Time Temp Pulse Resp B/P (MAP) Pulse Ox O2 Delivery O2 Flow Rate FiO2 08/15/20 18:08 Mechanical Ventilator 25 08/15/20 18:00 51 15 92 25.00 08/15/20 00:08 36.4 I&O I&O Intake and Output 08/15/20 00:00 Intake Total 1052.5 ml Output Total 1350 ml Balance -297.5 ml Intake Oral 0 ml IV Total 662.5 ml Tube Feeding 210 ml Other 180 ml Output Urine Total 1350 ml Daily Weight Change Unsure Labs Laboratory Tests 08/14/20 23:54: Glucometer 111H 08/15/20 03:30: White Blood Count 11.0, Red Blood Count 4.19L, Hemoglobin 13.1L, Hematocrit 40, Mean Corpuscular Volume 94, Mean Corpuscular Hemoglobin 31, Mean Corpuscular Hemoglobin Concent 33, Red Cell Distribution Width 13.7, Platelet Count 187, Mean Platelet Volume 10.4, Immature Granulocyte % (Auto) 1, Neutrophils (%) (Auto) 87H, Lymphocytes (%) (Auto) 3L, Monocytes (%) (Auto) 8, Eosinophils (%) (Auto) 0, Basophils (%) (Auto) 0, Neutrophils # (Auto) 9.6H, Lymphocytes # (Auto) 0.3L, Monocytes # (Auto) 0.9, Eosinophils # (Auto) 0.0, Basophils # (Auto) 0.0, Immature Granulocyte # (Auto) 0.1, Blood Gas Puncture Site RIGHT RADIAL, Blood Gas Patient Temperature 36.8, Arterial Blood pH 7.33*L, Arterial Blood Partial Pressure CO2 41, Arterial Blood Partial Pressure O2 100H, Arterial Blood HCO3 21L, Arterial Blood Total CO2 22.7, Arterial Blood Oxygen Saturation 97, Arterial Blood Base Excess -3.6L, Ricky Test YES-POS, Blood Gas Ventilator Setting NO, Blood Gas Inspired Oxygen 30%, Sodium Level 140, Potassium Level 4.0, Chloride Level 111H, Carbon Dioxide Level 18L, Anion Gap 11, Blood Urea Nitrogen 13, Creatinine 0.67, Estimat Glomerular Filtration Rate > 60, BUN/Creatinine Ratio 19, Glucose Level 138H, Calcium Level 7.8L, Corrected Calc ium 8.5, Phosphorus Level 1.4L, Magnesium Level 1.9, Total Bilirubin 0.4, Aspartate Amino Transf (AST/SGOT) 10, Alanine Aminotransferase (ALT/SGPT) 10, Alkaline Phosphatase 47, Total Protein 5.6L, Albumin 3.1L, Triglycerides Level 354H 08/15/20 09:15: Vancomycin Level Trough 11.4 08/15/20 12:49: Glucometer 181H Microbiology 08/14/20 Gram Stain - Final, Complete 08/14/20 Sputum Culture - Final, Complete Haemophilus influenza 08/14/20 Blood Culture - Preliminary, Resulted No growth Focused Exam Lactate Level 08/14/20 00:35: Lactic Acid Level 0.87 KAMILA CLARK MD August 15, 2020 18:37
[2020-08-15 19:02] VITALS: BP 113/52
[2020-08-15] MEDS: VANCOMYCIN 1 GM/NS 250 ML IVPB IV SCH ×2 (19:55)
[2020-08-15 22:49] VITALS: BP 118/50
[2020-08-16] MEDS: inSUlin ASPART (NovoLOG) 1 UNIT/0.01 ML (CHARGE PER UNIT) SC SCH ×4 (00:46→19:09)
[2020-08-16] MEDS: CEFEPIME 1,000 MG/SWFI 10 ML IV PUSH IV SCH ×8 (00:47→20:35)
[2020-08-16] MEDS: methylPREDNISolone 40 MG/ML (Solu-MEDROL) VIAL IV SCH ×4 (00:47→19:09)
[2020-08-16] MEDS: PROPOFOL DRIP (ICU) 100 ML IV SCH ×3 (01:54→17:16)
[2020-08-16 02:00] VITALS: BP 114/48
[2020-08-16] MEDS: RT-ALBUTEROL/IPRATROPIUM 3 ML (DUONEB) VIAL INH SCH ×6 (02:00→22:26)
[2020-08-16] MEDS: NS IV 1000 ML 1,000 ML IV SCH ×4 (04:07→22:50)
[2020-08-16] MEDS: VANCOMYCIN 1 GM/NS 250 ML IVPB IV SCH ×6 (04:07→20:35)
[2020-08-16] MEDS: NOREPINEPHRINE 8 MG/250 ML 250 ML IV SCH ×2 (04:07→20:32)
[2020-08-16 04:26] LABS: ABG BASE EXCESS -3.7 MMOL/L (-2.5-2.5); ABG OXYGEN SATURATION 93 % (94-100); ABG PCO2 46 MMHG (35-45); ABG PO2 59 MMHG (79-93); ABG TCO2 23.3 MMOL/L (21.0-31.0)
[2020-08-16 04:27] LABS: BASOPHILS % (AUTO) 0 % (0-10); EOSINOPHILS % (AUTO) 0 % (0-10); HEMATOCRIT 37 % (40-54); HEMOGLOBIN 12.1 g/dL (13.3-17.7); LYMPHOCYTES # (AUTO) 0.4 10^3/uL (1.0-4.0); LYMPHOCYTES % (AUTO) 3 % (12-44); MEAN CORPUSCULAR HEMOGLOBIN 31 pg (25-34); MEAN CORPUSCULAR HGB CONC 32 g/dL (32-36); MEAN CORPUSCULAR VOLUME 95 fL (80-99); MEAN PLATELET VOLUME 10.3 fL (9.0-12.2); MONOCYTES # (AUTO) 0.5 10^3/uL (0.0-1.0); MONOCYTES % (AUTO) 5 % (0-12); NEUTROPHILS # (AUTO) 9.6 10^3/uL (1.8-7.8); NEUTROPHILS % (AUTO) 91 % (42-75); PLATELET COUNT 199 10^3/uL (130-400); WHITE BLOOD COUNT 10.6 10^3/uL (4.3-11.0)
[2020-08-16 04:29] LABS: ALLENS TEST YES-POS
[2020-08-16 04:30] LABS: INSPIRED O2 25%; PATIENT TEMP 36.3; VENTILATOR NO
[2020-08-16 04:34] LABS: ALBUMIN 2.9 GM/DL (3.2-4.5); CHLORIDE 114 MMOL/L (98-107); POTASSIUM 4.6 MMOL/L (3.6-5.0); SODIUM 142 MMOL/L (135-145)
[2020-08-16 04:35] LABS: CALCIUM 7.6 MG/DL (8.5-10.1)
[2020-08-16 04:37] LABS: GLUCOSE 136 MG/DL (70-105); TOTAL PROTEIN 5.3 GM/DL (6.4-8.2)
[2020-08-16 04:38] LABS: BILIRUBIN,TOTAL 0.3 MG/DL (0.1-1.0); CARBON DIOXIDE 18 MMOL/L (21-32)
[2020-08-16 04:40] LABS: ALKALINE PHOSPHATASE 42 U/L (40-136); CREATININE SERUM 0.65 MG/DL (0.60-1.30); GFR ESTIMATED > 60; PHOSPHORUS 2.4 MG/DL (2.3-4.7)
[2020-08-16 04:41] LABS: BUN/CREATININE RATIO 25
[2020-08-16 04:43] LABS: ALANINE AMINOTRANSFERASE 9 U/L (0-55); MAGNESIUM 2.2 MG/DL (1.6-2.4)
[2020-08-16] MEDS: POTASSIUM CL 10MEQ/50ML IVPB 50 ML IV SCH (04:54)
[2020-08-16] MEDS: MAGNESIUM 1 GM/100 ML IVPB 100 ML IV SCH (04:54)
[2020-08-16] MEDS: KCL 20 MEQ TAB (K-DUR) PO SCH (04:54)
--- NOTE | 2020-08-16 06:38 | Progress Note - Hospitalist ---
Subjective HPI/CC On Admission Date Seen by Provider: August 16, 2020 Time Seen by Provider: 11:00 CC: Respiratory failure from AECOPD HPI: This is a 70yoWM clinic Pt of Dr. Dave who has a PMH of COPD and Parkinsons, he underwent emergency intubation due to rapid decline in status while at [facility] to ICU admission. Central line is functioning well, procalcitonin at 0.87, IV steroids maintained, OG tube is placed and will start tube feedings today. Cefepime and Vancomycin maintained and sputum on preliminary culture at [facility] shows Gram + Cocci. Subjective/Events-last exam Patient failing the weaning trial ABG is worse Cardiology consulted for bradycardia in the 40s Sputum is positive for Staph hominis Spoke with eICU toppiece chopper Focused Exam Lactate Level 08/14/20 00:35: Lactic Acid Level 0.87 Objective Exam Vital Signs Vital Signs Date Time Temp Pulse Resp B/P (MAP) Pulse Ox O2 Delivery O2 Flow Rate FiO2 08/16/20 18:07 41 19 91 45 08/16/20 18:00 Mechanical Ventilator 45.00 08/15/20 20:00 36.4 Capillary Refill : General Appearance: No Apparent Distress, Chronically ill, Other (Sedated) Respiratory: Decreased Breath Sounds, Wheezing Results/Procedures Lab Laboratory Tests 08/16/20 04:15 Patient resulted labs reviewed. Assessment/Plan Assessment and Plan Assess & Plan/Chief Complaint Assessment: AECOPD causing respiratory fatigue and intubation Pneumonia from staph hominis Smoker Parkinson's Infiltrates c/w PNA empirically placed on abx Leukocytosis Bradycardia Plan: Vent IV abx Supportive care Complex case TF to start 08/15/2020: Vent management IV antibiotics IV steroids Sedation 08/16/2020 Cardiology appreciated for bradycardia Failed weaning trial Likely will need [place] Critical Care Ventilator Management Diagnosis/Problems Diagnosis/Problems (1) Respiratory failure (2) COPD exacerbation (3) Smoker (4) Parkinson disease RENNY BATES DO August 16, 2020 06:38
[2020-08-16 06:39] VITALS: BP 113/50
--- NOTE | 2020-08-16 08:23 | Diagnostic Imaging Report ---
CHEST 1 VIEW, AP/PA ONLY Indication: Intubation Comparison: 08/15/2020 Findings: Stable ET and enteric tubes. Stable right IJ central venous catheter. Slightly improved but persistent bilateral heterogeneous opacities, greatest in the lung bases. No pleural effusion or pneumothorax. Stable cardiac silhouette. Impression: 1. Stable support devices. 2. Mild improvement in bilateral pulmonary opacities could be due to edema or multifocal infection. Dictated by: Dictated on workstation # [id number]
[2020-08-16] MEDS: FAMOTIDINE 20MG/2ML IV (PEPCID) IVP SCH ×2 (09:11→20:35)
[2020-08-16] MEDS: fentaNYL DRIP PRE-MIX 250 ML IV SCH (09:11)
[2020-08-16] MEDS: ENOXAPARIN 40 MG/0.4 ML (LOVENOX) SYR SC SCH (09:12)
[2020-08-16 10:24] VITALS: BP 103/83
[2020-08-16] MEDS ORDERED: TROUGH ORDER-PHARMACY XX NR (11:00)
--- NOTE | 2020-08-16 11:32 | Pulmonary Progress Note ---
Subjective Date Seen by a Provider: August 16, 2020 Time Seen by a Provider: 11:26 Subjective/Events-last exam 70 M came in form [facility], intubated at [facility], thought to have exacerbation of COPD, on steroids and abx, COVID neg, not had vaccine Remains on vent on AC 18 Vt 400 FiO2 30% PEEP, pt sedated, when gets sedation holiday becomes very agitated, getting IV Fentnayl @ 75 and IV Propofol @ 30, secretions are better, does have cough reflex, CXR shows ET ok, no infiltrate Is current smoker Has arterial line in 3 days, would like to remove if not using, has central line placed in anticipation of pressors but was not on any, If good peripheral IV can be placed would remove central lines Sepsis Event Evaluation Height, Weight, BMI Height: '" Weight: lbs. oz. kg; 25.70 BMI Method: Focused Exam Lactate Level 08/14/20 00:35: Lactic Acid Level 0.87 Exam Exam Vital Signs Date Time Temp Pulse Resp B/P (MAP) Pulse Ox O2 Delivery O2 Flow Rate FiO2 08/16/20 11:00 44 16 93 Mechanical Ventilator 25.00 08/16/20 10:46 44 122/58 08/16/20 10:24 44 18 93 25 08/16/20 10:00 50 17 98 Mechanical Ventilator 25.00 08/16/20 09:00 49 14 99 Mechanical Ventilator 25.00 08/16/20 08:00 43 17 91 Mechanical Ventilator 25.00 08/16/20 07:00 50 17 92 Mechanical Ventilator 25.00 08/16/20 07:00 54 08/16/20 06:39 48 18 91 25 08/16/20 06:00 46 17 93 Mechanical Ventilator 25.00 08/16/20 05:00 46 18 93 Mechanical Ventilator 25.00 08/16/20 04:00 45 17 98 Mechanical Ventilator 25.00 08/16/20 04:00 Mechanical Ventilator 25 08/16/20 03:00 45 18 90 Mechanical Ventilator 25.00 08/16/20 02:00 47 18 92 25 08/16/20 02:00 48 17 91 Mechanical Ventilator 25.00 08/16/20 01:54 117/55 08/16/20 01:00 50 17 91 Mechanical Ventilator 25.00 08/16/20 00:47 59 08/16/20 00:00 51 17 92 Mechanical Ventilator 25.00 08/15/20 23:59 Mechanical Ventilator 25 08/15/20 23:00 48 14 92 Mechanical Ventilator 25.00 08/15/20 22:49 52 18 91 25 08/15/20 22:00 52 20 91 Mechanical Ventilator 25.00 08/15/20 21:00 56 14 91 Mechanical Ventilator 25.00 08/15/20 20:00 Mechanical Ventilator 25 08/15/20 20:00 54 9 92 Mechanical Ventilator 25.00 08/15/20 20:00 36.4 08/15/20 19:57 56 128/55 08/15/20 19:02 58 18 92 25 08/15/20 19:00 54 12 92 Mechanical Ventilator 25.00 08/15/20 19:00 58 08/15/20 18:08 Mechanical Ventilator 25 08/15/20 18:00 51 15 92 Mechanical Ventilator 25.00 08/15/20 17:00 52 11 92 Mechanical Ventilator 25.00 08/15/20 16:00 Mechanical Ventilator 25 08/15/20 16:00 60 13 92 Mechanical Ventilator 25.00 08/15/20 15:00 62 16 92 Mechanical Ventilator 25.00 08/15/20 14:00 57 16 91 Mechanical Ventilator 25.00 08/15/20 13:57 57 110/49 08/15/20 13:17 59 24 92 25 08/15/20 13:00 63 16 92 Mechanical Ventilator 25.00 08/15/20 13:00 60 08/15/20 12:00 Mechanical Ventilator 25 08/15/20 12:00 56 18 92 Mechanical Ventilator 25.00 I & O 08/16/20 07:00 Intake Total 512.5 ml Output Total 1190 ml Balance -677.5 ml Height & Weight Height: '" Weight: lbs. oz. kg; 25.70 BMI Method: General Appearance: No Apparent Distress, WD/WN, Chronically ill, Other (intubated and sedated) Respiratory: No Accessory Muscle Use, No Respiratory Distress, Crackles, Decreased Breath Sounds, Rhonci, Wheezing Cardiovascular: Regular Rate, Rhythm, Bradycardia Gastrointestinal: normal bowel sounds, non tender Neurologic/Psychiatric: Other (sedated) Results Lab Laboratory Tests 08/15/20 03:30 08/16/20 04:15 Assessment/Plan Assessment/Plan Problem is any lowering of sedation leads to severe agitation, will try PSV 12 on sedation for 4 hours Has TF, had to be held, due to high residuals, will start again, Would like to remove arterial line if not being used to make clinical decisions and if good peripheal IV can be started would remove central line, continue abx and steroids Has grown H Flu from sputum Time spent with patient (mins): 20 KAMILA CHAVES MD August 16, 2020 11:32
--- NOTE | 2020-08-16 13:22 | Cardiology Progress Note ---
Cardiology SOAP Progress Note Subjective: Intubated/ventilated. Objective: I&O/Vital Signs 08/16/20 08/16/20 08/16/20 08/16/20 01:54 02:00 02:00 03:00 Pulse 48 47 45 Resp 17 18 18 B/P (MAP) 117/55 Pulse Ox 91 92 90 O2 Delivery Mechanical Ventilator Mechanical Ventilator O2 Flow Rate 25.00 25.00 FiO2 25 08/16/20 08/16/20 08/16/20 08/16/20 04:00 04:00 05:00 06:00 Pulse 45 46 46 Resp 17 18 17 B/P (MAP) Pulse Ox 98 93 93 O2 Delivery Mechanical Ventilator Mechanical Ventilator Mechanical Ventilator Mechanical Ventilator O2 Flow Rate 25.00 25.00 25.00 FiO2 25 08/16/20 08/16/20 08/16/20 08/16/20 06:39 07:00 07:00 08:00 Pulse 48 54 50 43 Resp 18 17 17 B/P (MAP) Pulse Ox 91 92 91 O2 Delivery Mechanical Ventilator Mechanical Ventilator O2 Flow Rate 25.00 25.00 FiO2 25 08/16/20 08/16/20 08/16/20 08/16/20 09:00 10:00 10:24 10:46 Pulse 49 50 44 44 Resp 14 17 18 B/P (MAP) 122/58 Pulse Ox 99 98 93 O2 Delivery Mechanical Ventilator Mechanical Ventilator O2 Flow Rate 25.00 25.00 FiO2 25 08/16/20 08/16/20 08/16/20 08/16/20 11:00 12:00 12:39 13:00 Pulse 44 43 43 42 Resp 16 18 16 B/P (MAP) Pulse Ox 93 94 94 O2 Delivery Mechanical Ventilator Mechanical Ventilator Mechanical Ventilator O2 Flow Rate 25.00 30.00 30.00 08/16/20 00:00 Intake Total 332.5 ml Output Total 665 ml Balance -332.5 ml Constitutional: appears stated age, well-developed, well-nourished, other (Intubated/ventilated) Respiratory: other (Intubated/ventilated.) Cardiovascular: regular rate-rhythm, bradycardia, S1 and S2; No diastolic murmur, No systolic murmur Gastrointestional: soft, audible bowel sounds; No spleenomegaly Extremities: No clubbing, No cyanosis; no lower extremity edema bilateral; No significant edema Neurologic/Psychiatric: other (Intubated/ventilated.) Skin: No rash, No ulcerations Results/Procedures: Labs Laboratory Tests 08/15/20 18:40: Glucometer 134H 08/16/20 00:46: Glucometer 136H 08/16/20 04:15: White Blood Count 10.6, Red Blood Count 3.91L, Hemoglobin 12.1L, Hematocrit 37L, Mean Corpuscular Volume 95, Mean Corpuscular Hemoglobin 31, Mean Corpuscular Hemoglobin Concent 32, Red Cell Distribution Width 14.5, Platelet Count 199, Mean Platelet Volume 10.3, Immature Granulocyte % (Auto) 1, Neutrophils (%) (Auto) 91H, Lymphocytes (%) (Auto) 3L, Monocytes (%) (Auto) 5, Eosinophils (%) (Auto) 0, Basophils (%) (Auto) 0, Neutrophils # (Auto) 9.6H, Lymphocytes # (Auto) 0.4L, Monocytes # (Auto) 0.5, Eosinophils # (Auto) 0.0, Basophils # (Auto) 0.0, Immature Granulocyte # (Auto) 0.1, Blood Gas Puncture Site RIGHT RADIAL, Blood Gas Patient Temperature 36.3, Arterial Blood pH 7.30*L, Arterial Blood Partial Pressure CO2 46H, Arterial Blood Partial Pressure O2 59L, Arterial Blood HCO3 22L, Arterial Blood Total CO2 23.3, Arterial Blood Oxygen Saturation 93L, Arterial Blood Base Excess -3.7L, Ricky Test YES-POS, Blood Gas Ventilator Setting NO, Blood Gas Inspired Oxygen 25%, Sodium Level 142, Potassium Level 4.6, Chloride Level 114H, Carbon Dioxide Level 18L, Anion Gap 10, Blood Urea Nitrogen 16, Creatinine 0.65, Estimat Glomerular Filtration Rate > 60, BUN/Creatinine Ratio 25, Glucose Level 136H, Calcium Level 7.6L, Corrected Calcium 8.5, Phosphorus Level 2.4, Magnesium Level 2.2, Total Bilirubin 0.3, Aspartate Amino Transf (AST/SGOT) 9, Alanine Aminotransferase (ALT/SGPT) 9, Alkaline Phosphatase 42, Total Protein 5.3L, Albumin 2.9L 08/16/20 10:42: Glucometer 115H 08/16/20 10:50: Vancomycin Level Trough 19.5 Microbiology 08/14/20 Gram Stain - Final, Complete 08/14/20 Sputum Culture - Final, Complete Haemophilus influenza 5/28/21 Blood Culture - Preliminary, Resulted No growth A/P: Assessment/Dx: Acute respiratory failure, Sinus bradycardia, likely due to sedation. Hypertension Plan: Sinus bradycardia with stable blood pressure -systolic blood pressure 120 mmHg. Heart rate during my examination was sinus at 44 bpm. Echocardiogram showed normal LV function Defer treatment of acute respiratory failure and sepsis to the primary team and pulmonology. Thank you for your consultation. Please call me if you have any questions. Hollis Navarro MD, FACP, FACC, FSCAI, FHRS, CCDS Interventional Cardiology Cardiac Electrophysiology Vascular Medicine and Endovascular Interventions Focused Exam Lactate Level 08/14/20 00:35: Lactic Acid Level 0.87 Fabiola NAVARRO MD August 16, 2020 13:22
[2020-08-16 14:35] VITALS: BP 129/58
[2020-08-16] MEDS: DOPamine DRIP 250 ML IV SCH (15:29)
[2020-08-16 16:35] LABS: ABG BASE EXCESS -4.6 MMOL/L (-2.5-2.5); ABG OXYGEN SATURATION 96 % (94-100); ABG PCO2 45 MMHG (35-45); ABG PO2 80 MMHG (79-93); ABG TCO2 22.4 MMOL/L (21.0-31.0)
[2020-08-16 16:37] LABS: ABG PH 7.29 (7.37-7.43); ALLENS TEST ART LINE; INSPIRED O2 45%; PATIENT TEMP 36.6; VENTILATOR YES
[2020-08-16 18:07] VITALS: BP 128/59
[2020-08-16] MEDS: ATROPINE INJECTION 1 MG/10 ML SYR (ABBOTT) IV SCH ×3 (19:09→23:11)
[2020-08-16 22:26] VITALS: BP 151/63
[2020-08-17] MEDS: PROPOFOL DRIP (ICU) 100 ML IV SCH ×3 (00:07→20:25)
[2020-08-17] MEDS: methylPREDNISolone 40 MG/ML (Solu-MEDROL) VIAL IV SCH ×4 (00:07→17:22)
[2020-08-17] MEDS: ATROPINE INJECTION 1 MG/10 ML SYR (ABBOTT) IV SCH ×3 (01:13→21:42)
[2020-08-17] MEDS: CEFEPIME 1,000 MG/SWFI 10 ML IV PUSH IV SCH ×8 (01:14→18:10)
[2020-08-17 02:15] VITALS: BP 148/62
[2020-08-17] MEDS: RT-ALBUTEROL/IPRATROPIUM 3 ML (DUONEB) VIAL INH SCH ×6 (02:15→21:58)
[2020-08-17] MEDS: NS IV 1000 ML 1,000 ML IV SCH ×3 (02:25→17:22)
[2020-08-17] MEDS: fentaNYL DRIP PRE-MIX 250 ML IV SCH ×2 (02:25→17:22)
[2020-08-17] MEDS: VANCOMYCIN 1 GM/NS 250 ML IVPB IV SCH ×6 (04:24→20:02)
[2020-08-17 04:27] LABS: BASOPHILS # (AUTO) 0.1 10^3/uL (0.0-0.1); BASOPHILS % (AUTO) 1 % (0-10); EOSINOPHILS # (AUTO) 0.4 10^3/uL (0.0-0.3); EOSINOPHILS % (AUTO) 4 % (0-10); HEMATOCRIT 38 % (40-54); HEMOGLOBIN 12.1 g/dL (13.3-17.7); LYMPHOCYTES # (AUTO) 0.5 10^3/uL (1.0-4.0); LYMPHOCYTES % (AUTO) 5 % (12-44); MEAN CORPUSCULAR HEMOGLOBIN 31 pg (25-34); MEAN CORPUSCULAR HGB CONC 32 g/dL (32-36); MEAN CORPUSCULAR VOLUME 96 fL (80-99); MEAN PLATELET VOLUME 10.3 fL (9.0-12.2); MONOCYTES # (AUTO) 0.5 10^3/uL (0.0-1.0); MONOCYTES % (AUTO) 5 % (0-12); NEUTROPHILS % (AUTO) 84 % (42-75); PLATELET COUNT 208 10^3/uL (130-400); WHITE BLOOD COUNT 10.7 10^3/uL (4.3-11.0)
[2020-08-17 04:34] LABS: ABG BASE EXCESS -2.9 MMOL/L (-2.5-2.5); ABG OXYGEN SATURATION 98 % (94-100); ABG PCO2 49 MMHG (35-45); ABG PO2 93 MMHG (79-93); ABG TCO2 24.3 MMOL/L (21.0-31.0)
[2020-08-17 04:35] LABS: ABG PH 7.29 (7.37-7.43); ALLENS TEST ART LINE; INSPIRED O2 NOT INDICATED; PATIENT TEMP 36.6; VENTILATOR NO
[2020-08-17 04:43] LABS: ALBUMIN 2.8 GM/DL (3.2-4.5); CHLORIDE 116 MMOL/L (98-107); POTASSIUM 4.3 MMOL/L (3.6-5.0); SODIUM 144 MMOL/L (135-145)
[2020-08-17 04:44] LABS: CALCIUM 7.6 MG/DL (8.5-10.1)
[2020-08-17 04:46] LABS: GLUCOSE 137 MG/DL (70-105); TOTAL PROTEIN 5.2 GM/DL (6.4-8.2)
[2020-08-17 04:47] LABS: CARBON DIOXIDE 19 MMOL/L (21-32)
[2020-08-17 04:48] LABS: BILIRUBIN,TOTAL 0.3 MG/DL (0.1-1.0)
[2020-08-17 04:49] LABS: ALKALINE PHOSPHATASE 41 U/L (40-136); CREATININE SERUM 0.59 MG/DL (0.60-1.30); GFR ESTIMATED > 60; PHOSPHORUS 2.1 MG/DL (2.3-4.7)
[2020-08-17 04:51] LABS: BUN/CREATININE RATIO 36
[2020-08-17 04:52] LABS: ALANINE AMINOTRANSFERASE 8 U/L (0-55); MAGNESIUM 2.6 MG/DL (1.6-2.4)
[2020-08-17] MEDS: MAGNESIUM 1 GM/100 ML IVPB 100 ML IV SCH (05:39)
[2020-08-17] MEDS: POTASSIUM CL 10MEQ/50ML IVPB 50 ML IV SCH (05:39)
[2020-08-17] MEDS: KCL 20 MEQ TAB (K-DUR) PO SCH (05:46)
[2020-08-17] MEDS: inSUlin ASPART (NovoLOG) 1 UNIT/0.01 ML (CHARGE PER UNIT) SC SCH ×4 (05:47→17:22)
[2020-08-17 06:55] VITALS: BP 143/60
[2020-08-17] MEDS: FAMOTIDINE 20MG/2ML IV (PEPCID) IVP SCH ×2 (08:14→20:01)
[2020-08-17] MEDS: ENOXAPARIN 40 MG/0.4 ML (LOVENOX) SYR SC SCH (08:14)
--- NOTE | 2020-08-17 08:23 | Diagnostic Imaging Report ---
INDICATION: Intubation, infiltrate. TECHNIQUE: Single view chest 4:20 AM. CORRELATION STUDY: 08/16/2020 FINDINGS: Endotracheal tube is present tip just below the level of the clavicles. Gastric tube passes below the left hemidiaphragm. Right IJ central line tip in low SVC. Heart size and mediastinum are stable. Vasculature appears increased from prior. There is also worsening appearance about the lung valdovinos with presence bilateral pleural effusions. Increasing bilateral pulmonary opacities particularly lower lung valdovinos right greater than left. Slight relative sparing of the upper lungs. IMPRESSION: 1. Support lines and tubes as above. 2. Increasing bilateral pulmonary opacities likely combination of effusion along with infiltrate and/or edema both lung valdovinos right greater than left. Vasculature also appears overall increased in severity. Dictated by: Dictated on workstation # [id number]
--- NOTE | 2020-08-17 09:53 | Physical Therapy Progress Note ---
Therapy Progress Note Patient remains intubated, will monitor and start when appropriate. JOELLEN MIXON PT August 17, 2020 09:53
--- NOTE | 2020-08-17 10:10 | Progress Note - Hospitalist ---
Subjective HPI/CC On Admission Date Seen by Provider: August 17, 2020 Time Seen by Provider: 10:15 CC: Respiratory failure from AECOPD HPI: This is a 70yoWM clinic Pt of Dr. Dave who has a PMH of COPD and Parkinsons, he underwent emergency intubation due to rapid decline in status while at [place] [facility] to ICU admission. Central line is functioning well, procalcitonin at 0.87, IV steroids maintained, OG tube is placed and will start tube feedings today. Cefepime and Vancomycin maintained and sputum on preliminary culture [place] [facility] [place] Gram + Cocci. Subjective/Events-last exam Patient not even close to weaning Atropine was given for bradycardia Dr. Lo will see him today and get an opinion from him regarding the bradycardia Patient did open his eyes and squeeze the nurses hand when he was on a sedation holiday Blood pressure really became elevated when he was attempted to be weaned Parkinson's will place him at a long slow recovery will likely need [place] Objective Exam Vital Signs Vital Signs Date Time Temp Pulse Resp B/P (MAP) Pulse Ox O2 Delivery O2 Flow Rate FiO2 08/17/20 17:00 40 17 94 Mechanical Ventilator 40.00 08/17/20 15:33 40 08/17/20 15:25 36.1 Capillary Refill : General Appearance: No Apparent Distress, Chronically ill, Other (Sedated on vent) Respiratory: Normal Breath Sounds, Decreased Breath Sounds Cardiovascular: Regular Rate, Rhythm Results/Procedures Lab Laboratory Tests 08/17/20 04:14 Patient resulted labs reviewed. Assessment/Plan Assessment and Plan Assess & Plan/Chief Complaint Assessment: AECOPD causing respiratory fatigue and intubation Pneumonia from staph hominis Smoker Parkinson's Infiltrates c/w PNA empirically placed on abx Leukocytosis Bradycardia Plan: Vent IV abx Supportive care Complex case TF to start 08/15/2020: Vent management IV antibiotics IV steroids Sedation 08/16/2020 Cardiology appreciated for bradycardia Failed weaning trial Likely will need [place] 08/17/2020: Attempt to wean failed May need [place] Cardiology for bradycardia Maintain vent Critical Care Ventilator Management Diagnosis/Problems Diagnosis/Problems (1) Respiratory failure (2) COPD exacerbation (3) Smoker (4) Parkinson disease RENNY BATES DO August 17, 2020 10:10
--- NOTE | 2020-08-17 10:17 | Pulmonary Progress Note ---
Subjective Date Seen by a Provider: August 17, 2020 Time Seen by a Provider: 10:11 Subjective/Events-last exam Remains on vent, AC 18 Vt 400 FiO2 40% PEEP 5, Propofol was turned off but had to be restarted, BP rianna to 250/120, Fentanyl @ 80 Growing H flu, on IV Cefepime and Vancomycin, CXR still shows bilateral infiltrates, HR stays in 40-50, if goes below 40 would give 0.5 mg IV atropine still has arterial line and central line, will leave central line due to possible need for pressors Sepsis Event Evaluation Height, Weight, BMI Height: '" Weight: lbs. oz. kg; 25.70 BMI Method: Exam Exam Vital Signs Date Time Temp Pulse Resp B/P (MAP) Pulse Ox O2 Delivery O2 Flow Rate FiO2 08/17/20 09:00 43 18 96 Mechanical Ventilator 40.00 08/17/20 08:00 41 18 95 Mechanical Ventilator 50.00 08/17/20 08:00 Mechanical Ventilator 40 08/17/20 07:00 67 18 90 Mechanical Ventilator 50.00 08/17/20 07:00 64 08/17/20 06:55 57 23 95 40 08/17/20 06:00 54 17 96 Mechanical Ventilator 50.00 08/17/20 05:35 58 18 95 Mechanical Ventilator 50.00 08/17/20 05:23 40 17 92 Mechanical Ventilator 55.00 08/17/20 05:13 40 18 91 Mechanical Ventilator 50.00 08/17/20 05:00 41 17 91 Mechanical Ventilator 45.00 08/17/20 04:00 42 17 91 Mechanical Ventilator 45.00 08/17/20 04:00 Mechanical Ventilator 45 08/17/20 03:00 48 18 93 Mechanical Ventilator 45.00 08/17/20 02:15 51 18 95 45 08/17/20 02:00 48 17 93 Mechanical Ventilator 45.00 08/17/20 01:00 48 18 90 Mechanical Ventilator 45.00 08/17/20 01:00 48 08/17/20 00:07 53 145/61 08/17/20 00:00 50 20 95 Mechanical Ventilator 45.00 08/16/20 23:59 Mechanical Ventilator 45 08/16/20 23:00 50 18 95 Mechanical Ventilator 45.00 08/16/20 22:26 46 19 94 45 08/16/20 22:00 52 18 94 Mechanical Ventilator 45.00 08/16/20 21:00 45 18 94 Mechanical Ventilator 45.00 08/16/20 20:00 49 18 96 Mechanical Ventilator 45.00 08/16/20 20:00 Mechanical Ventilator 45 08/16/20 19:00 42 20 93 Mechanical Ventilator 45.00 08/16/20 19:00 42 08/16/20 18:07 41 19 91 45 08/16/20 18:00 42 17 90 Mechanical Ventilator 45.00 08/16/20 17:16 44 123/109 08/16/20 17:00 46 16 96 Mechanical Ventilator 45.00 08/16/20 16:00 48 20 97 Mechanical Ventilator 30.00 08/16/20 16:00 Mechanical Ventilator 45 08/16/20 15:29 40 08/16/20 15:00 41 18 94 Mechanical Ventilator 30.00 08/16/20 14:35 43 18 93 30 08/16/20 14:00 41 18 94 Mechanical Ventilator 30.00 08/16/20 13:00 42 16 94 Mechanical Ventilator 30.00 08/16/20 12:39 43 08/16/20 12:00 Mechanical Ventilator 30 08/16/20 12:00 43 18 94 Mechanical Ventilator 30.00 08/16/20 11:00 44 16 93 Mechanical Ventilator 25.00 08/16/20 10:46 44 122/58 08/16/20 10:24 44 18 93 25 I & O 08/17/20 07:00 Intake Total 600 ml Output Total 900 ml Balance -300 ml Height & Weight Height: '" Weight: lbs. oz. kg; 25.70 BMI Method: General Appearance: No Apparent Distress, Chronically ill, Other (Sedated) Respiratory: Decreased Breath Sounds, Rhonci Cardiovascular: Regular Rate, Rhythm, Bradycardia Gastrointestinal: normal bowel sounds, non tender, soft Extremity: No Pedal Edema Neurologic/Psychiatric: Other (sedated) Skin: Normal Color, Warm/Dry Results Lab Laboratory Tests 08/16/20 04:15 08/17/20 04:14 Assessment/Plan Assessment/Plan Not weanable due to CXR, need for sedation, will leave on AC, tomorrow if better, consider removal of central line and arterial right hand has arterial line and has good cap refill, pink and warm will continue abx, Medrol albuterol KAMILA CHAVES MD August 17, 2020 10:17
[2020-08-17 10:20] VITALS: BP 145/62
--- NOTE | 2020-08-17 13:01 | Progress Note - Cardiology ---
Cardiology SOAP Progress Note Subjective: He is intubated and sedated and on mech vent He is not able to provide any history Objective: I&O/Vital Signs 08/17/20 08/17/20 08/17/20 08/17/20 01:00 01:00 02:00 02:15 Pulse 48 48 48 51 Resp 18 17 18 B/P (MAP) Pulse Ox 90 93 95 O2 Delivery Mechanical Ventilator Mechanical Ventilator O2 Flow Rate 45.00 45.00 FiO2 45 08/17/20 08/17/20 08/17/20 08/17/20 03:00 04:00 04:00 05:00 Pulse 48 42 41 Resp 18 17 17 B/P (MAP) Pulse Ox 93 91 91 O2 Delivery Mechanical Ventilator Mechanical Ventilator Mechanical Ventilator Mechanical Ventilator O2 Flow Rate 45.00 45.00 45.00 FiO2 45 08/17/20 08/17/20 08/17/20 08/17/20 05:13 05:23 05:35 06:00 Pulse 40 40 58 54 Resp 18 17 18 17 B/P (MAP) Pulse Ox 91 92 95 96 O2 Delivery Mechanical Ventilator Mechanical Ventilator Mechanical Ventilator Mechanical Ventilator O2 Flow Rate 50.00 55.00 50.00 50.00 08/17/20 08/17/20 08/17/20 08/17/20 06:55 07:00 07:00 08:00 Pulse 57 64 67 Resp 23 18 B/P (MAP) Pulse Ox 95 90 O2 Delivery Mechanical Ventilator Mechanical Ventilator O2 Flow Rate 50.00 FiO2 40 40 08/17/20 08/17/20 08/17/20 08/17/20 08:00 09:00 10:00 10:20 Pulse 41 43 43 47 Resp 18 18 17 18 B/P (MAP) Pulse Ox 95 96 96 97 O2 Delivery Mechanical Ventilator Mechanical Ventilator Mechanical Ventilator O2 Flow Rate 50.00 40.00 40.00 FiO2 35 08/17/20 08/17/20 08/17/20 08/17/20 11:00 11:20 11:57 12:00 Temp 36.8 Pulse 44 44 Resp 18 17 B/P (MAP) Pulse Ox 93 92 O2 Delivery Mechanical Ventilator Mechanical Ventilator Mechanical Ventilator O2 Flow Rate 40.00 40.00 FiO2 40 08/16/20 23:59 Intake Total 150 ml Output Total 475 ml Balance -325 ml Constitutional: appears stated age, well-developed, well-nourished, other (Intubated/ventilated) Respiratory: other (Intubated/ventilated.) Cardiovascular: regular rate-rhythm, bradycardia, S1 and S2; No diastolic murmur, No systolic murmur Gastrointestional: soft, audible bowel sounds; No spleenomegaly Extremities: No clubbing, No cyanosis; no lower extremity edema bilateral; No significant edema Neurologic/Psychiatric: other (Intubated/ventilated.) Skin: No rash, No ulcerations Results/Procedures: Labs Laboratory Tests 08/16/20 15:23: Glucometer 122H 08/16/20 16:15: Blood Gas Puncture Site RT ART, Blood Gas Patient Temperature 36.6, Arterial Blood pH 7.29*L, Arterial Blood Partial Pressure CO2 45, Arterial Blood Partial Pressure O2 80, Arterial Blood HCO3 21L, Arterial Blood Total CO2 22.4, Arterial Blood Oxygen Saturation 96, Arterial Blood Base Excess -4.6L, Ricky Test ART LINE, Blood Gas Ventilator Setting YES, Blood Gas Inspired Oxygen 45% 08/16/20 18:51: Glucometer 127H 08/17/20 00:14: Glucometer 119H 08/17/20 04:14: White Blood Count 10.7, Red Blood Count 3.93L, Hemoglobin 12.1L, Hematocrit 38L, Mean Corpuscular Volume 96, Mean Corpuscular Hemoglobin 31, Mean Corpuscular Hemoglobin Concent 32, Red Cell Distribution Width 15.0H, Platelet Count 208, Mean Platelet Volume 10.3, Immature Granulocyte % (Auto) 3, Neutrophils (%) (Auto) 84H, Lymphocytes (%) (Auto) 5L, Monocytes (%) (Auto) 5, Eosinophils (%) (Auto) 4, Basophils (%) (Auto) 1, Neutrophils # (Auto) 9.0H, Lymphocytes # (Auto) 0.5L, Monocytes # (Auto) 0.5, Eosinophils # (Auto) 0.4H, Basophils # (Auto) 0.1, Immature Granulocyte # (Auto) 0.3H, Blood Gas Puncture Site ART LINE, Blood Gas Patient Temperature 36.6, Arterial Blood pH 7.29*L, Arterial Blood Partial Pressure CO2 49H, Arterial Blood Partial Pressure O2 93, Arterial Blood HCO3 23, Arterial Blood Total CO2 24.3, Arterial Blood Oxygen Saturation 98, Arterial Blood Base Excess -2.9L, Ricky Test ART LINE, Blood Gas Ventilator Setting NO, Blood Gas Inspired Oxygen NOT INDICATED, Sodium Level 144, Potassium Level 4.3, Chloride Level 116H, Carbon Dioxide Level 19L, Anion Gap 9, Blood Urea Nitrogen 21H, Creatinine 0.59L, Estimat Glomerular Filtration Rate > 60, BUN/Creatinine Ratio 36, Glucose Level 137H, Calcium Level 7.6L, Corrected Calcium 8.6, Phosphorus Level 2.1L, Magnesium Level 2.6H, Total Bilirubin 0.3, Aspartate Amino Transf (AST/SGOT) 8, Alanine Aminotransferase (ALT/SGPT) 8, Alkaline Phosphatase 41, Total Protein 5.2L, Albumin 2.8L 08/17/20 11:29: Glucometer 113H Microbiology 08/14/20 Gram Stain - Final, Complete 08/14/20 Sputum Culture - Final, Complete Haemophilus influenza 08/14/20 Blood Culture - Preliminary, Resulted No growth A/P: Assessment: Ac resp failure due to ac exac of COPD due to pneumonia Sinus bradycardia, likely due to sedation, hemodynamically non-significant H/o hypertension, none currently Plan: * I reviewed his record and examined him * Management of ac resp failure is with the Med and Pulm services * Bradycardia is sinus michael and has not caused any hemodynamic impairment so far. With lessening of sedation, the heart rate is found to increase * Monitor labs ANGIE PINA MD FACP [facility] CCDS August 17, 2020 13:01
[2020-08-17] MEDS: NOREPINEPHRINE 8 MG/250 ML 250 ML IV SCH (13:35)
[2020-08-17] MEDS: DOPamine DRIP 250 ML IV SCH (13:57)
[2020-08-17 14:11] VITALS: BP 133/53
[2020-08-17 17:58] VITALS: BP 141/53
[2020-08-17 21:58] VITALS: BP 131/49
[2020-08-18] MEDS: CEFEPIME 1,000 MG/SWFI 10 ML IV PUSH IV SCH ×8 (00:19→18:00)
[2020-08-18] MEDS: methylPREDNISolone 40 MG/ML (Solu-MEDROL) VIAL IV SCH ×4 (00:19→21:49)
[2020-08-18] MEDS: inSUlin ASPART (NovoLOG) 1 UNIT/0.01 ML (CHARGE PER UNIT) SC SCH ×4 (00:25→17:54)
[2020-08-18] MEDS: NS IV 1000 ML 1,000 ML IV SCH ×3 (00:25→09:44)
[2020-08-18 02:16] VITALS: BP 140/61
[2020-08-18] MEDS: RT-ALBUTEROL/IPRATROPIUM 3 ML (DUONEB) VIAL INH SCH ×6 (02:16→22:00)
[2020-08-18] MEDS: VANCOMYCIN 1 GM/NS 250 ML IVPB IV SCH ×6 (04:05→20:13)
[2020-08-18] MEDS: PROPOFOL DRIP (ICU) 100 ML IV SCH ×3 (04:06→17:54)
[2020-08-18 04:25] LABS: ABG BASE EXCESS -1.9 MMOL/L (-2.5-2.5); ABG OXYGEN SATURATION 94 % (94-100); ABG PCO2 49 MMHG (35-45); ABG PO2 71 MMHG (79-93); ABG TCO2 25.2 MMOL/L (21.0-31.0); BASOPHILS # (AUTO) 0.1 10^3/uL (0.0-0.1); BASOPHILS % (AUTO) 1 % (0-10); EOSINOPHILS # (AUTO) 0.3 10^3/uL (0.0-0.3); EOSINOPHILS % (AUTO) 3 % (0-10); HEMATOCRIT 39 % (40-54); HEMOGLOBIN 12.2 g/dL (13.3-17.7); LYMPHOCYTES # (AUTO) 0.6 10^3/uL (1.0-4.0); LYMPHOCYTES % (AUTO) 6 % (12-44); MEAN CORPUSCULAR HEMOGLOBIN 31 pg (25-34); MEAN CORPUSCULAR HGB CONC 31 g/dL (32-36); MEAN CORPUSCULAR VOLUME 98 fL (80-99); MEAN PLATELET VOLUME 9.9 fL (9.0-12.2); MONOCYTES # (AUTO) 0.6 10^3/uL (0.0-1.0); MONOCYTES % (AUTO) 6 % (0-12); NEUTROPHILS # (AUTO) 7.7 10^3/uL (1.8-7.8); NEUTROPHILS % (AUTO) 77 % (42-75); PLATELET COUNT 226 10^3/uL (130-400); WHITE BLOOD COUNT 9.9 10^3/uL (4.3-11.0)
[2020-08-18 04:26] LABS: ALLENS TEST YES-POS; INSPIRED O2 35%; PATIENT TEMP 36.5; VENTILATOR YES
[2020-08-18 04:40] LABS: ALBUMIN 2.8 GM/DL (3.2-4.5)
[2020-08-18 04:41] LABS: CHLORIDE 119 MMOL/L (98-107); POTASSIUM 4.1 MMOL/L (3.6-5.0); SODIUM 149 MMOL/L (135-145)
[2020-08-18 04:42] LABS: CALCIUM 7.8 MG/DL (8.5-10.1)
[2020-08-18 04:43] LABS: GLUCOSE 108 MG/DL (70-105)
[2020-08-18 04:44] LABS: CARBON DIOXIDE 22 MMOL/L (21-32)
[2020-08-18 04:45] LABS: BILIRUBIN,TOTAL 0.5 MG/DL (0.1-1.0)
[2020-08-18 04:46] LABS: ALKALINE PHOSPHATASE 39 U/L (40-136); PHOSPHORUS 2.1 MG/DL (2.3-4.7)
[2020-08-18 04:47] LABS: CREATININE SERUM 0.58 MG/DL (0.60-1.30); GFR ESTIMATED > 60
[2020-08-18 04:48] LABS: BUN/CREATININE RATIO 38
[2020-08-18 04:49] LABS: MAGNESIUM 2.8 MG/DL (1.6-2.4)
[2020-08-18] MEDS: POTASSIUM CL 10MEQ/50ML IVPB 50 ML IV SCH (04:49)
[2020-08-18] MEDS: KCL 20 MEQ TAB (K-DUR) PO SCH (04:49)
[2020-08-18] MEDS: MAGNESIUM 1 GM/100 ML IVPB 100 ML IV SCH (04:49)
[2020-08-18 04:50] LABS: ALANINE AMINOTRANSFERASE 12 U/L (0-55)
[2020-08-18] MEDS: ATROPINE INJECTION 1 MG/10 ML SYR (ABBOTT) IV SCH ×2 (05:17→21:55)
[2020-08-18] MEDS: NOREPINEPHRINE 8 MG/250 ML 250 ML IV SCH ×2 (06:07→23:20)
[2020-08-18] MEDS: fentaNYL DRIP PRE-MIX 250 ML IV SCH ×2 (06:08→17:54)
--- NOTE | 2020-08-18 06:11 | Progress Note - Hospitalist ---
Subjective HPI/CC On Admission Date Seen by Provider: Aug 18, 2020 Time Seen by Provider: 09:00 CC: Respiratory failure from AECOPD HPI: This is a 70yoWM clinic Pt of Dr. Dave who has a PMH of COPD and Parkinsons, he underwent emergency intubation due to rapid decline in status while at [place] [facility] to ICU admission. Central line is functioning well, procalcitonin at 0.87, IV steroids maintained, OG tube is placed and will start tube feedings today. Cefepime and Vancomycin maintained and sputum [place] [facility] [place]ci. Subjective/Events-last exam Pt still on the vent Trying to ween Updated family at the bedside No BM so Lactulose will be started BID per OG tube Decreasing IV fluid to 30 Oral care responds by opening his eyes Objective Exam Vital Signs Vital Signs Date Time Temp Pulse Resp B/P (MAP) Pulse Ox O2 Delivery O2 Flow Rate FiO2 08/19/20 04:00 Mechanical Ventilator 40 08/19/20 04:00 36.6 08/19/20 03:00 42 23 93 40.00 Capillary Refill : General Appearance: No Apparent Distress, WD/WN, Chronically ill, Other (sedated) Respiratory: No Accessory Muscle Use, No Respiratory Distress, Decreased Breath Sounds Cardiovascular: Bradycardia Neurologic/Psychiatric: Alert Results/Procedures Lab Laboratory Tests 08/19/20 04:10 Patient resulted labs reviewed. Assessment/Plan Assessment and Plan Assess & Plan/Chief Complaint Assessment: AECOPD causing respiratory fatigue and intubation Pneumonia from staph hominis Smoker Parkinson's Infiltrates c/w PNA empirically placed on abx Leukocytosis Bradycardia Plan: Vent IV abx Supportive care Complex case TF to start 08/15/2020: Vent management IV antibiotics IV steroids Sedation 08/16/2020 Cardiology appreciated for bradycardia Failed weaning trial Likely will need [place] 08/17/2020: Attempt to wean failed May need [place] [facility] for bradycardia Maintain vent 08/18/20: Wean attempt If fails wean will need [place] Critical Care Ventilator Management Diagnosis/Problems Diagnosis/Problems (1) Respiratory failure (2) COPD exacerbation (3) Smoker (4) Parkinson disease RENNY BATES DO Aug 18, 2020 06:11
[2020-08-18 06:42] VITALS: BP 89/45
--- NOTE | 2020-08-18 06:48 | Occ Therapy Progress Note ---
Therapy Progress Note Patient remains intubated. PT to initiate treatment when patient is medically stable and able to actively participate with skilled therapy. ELENA BAKER Aug 18, 2020 06:48
--- NOTE | 2020-08-18 07:40 | Diagnostic Imaging Report ---
CHEST 1 VIEW, AP/PA ONLY Indication: Intubation Comparison: 08/17/2020 Findings: Stable ET and enteric tubes. Stable right IJ central venous catheter. Bilateral mid and lower lung zone heterogeneous pulmonary opacities are unchanged. Small to moderate layering pleural effusions are unchanged. No pneumothorax. Stable cardiac silhouette. Impression: 1. Stable support devices. 2. No change since yesterday's exam. Dictated by: Dictated on workstation # [id number]
--- NOTE | 2020-08-18 08:11 | Physical Therapy Progress Note ---
Therapy Progress Note Patient remains intubated and sedated. PT will continue to monitor patient status. KEREN LARA PT Aug 18, 2020 08:11
[2020-08-18] MEDS: ENOXAPARIN 40 MG/0.4 ML (LOVENOX) SYR SC SCH (08:24)
[2020-08-18] MEDS: FAMOTIDINE 20MG/2ML IV (PEPCID) IVP SCH ×2 (08:24→21:48)
--- NOTE | 2020-08-18 09:11 | Pulmonary Progress Note ---
Subjective Date Seen by a Provider: Aug 18, 2020 Time Seen by a Provider: 09:08 Sepsis Event Evaluation Height, Weight, BMI Height: '" Weight: lbs. oz. kg; 25.70 BMI Method: Exam Exam Vital Signs Date Time Temp Pulse Resp B/P (MAP) Pulse Ox O2 Delivery O2 Flow Rate FiO2 08/18/20 08:32 Mechanical Ventilator 35 08/18/20 07:55 36.9 08/18/20 07:00 54 08/18/20 06:42 45 18 92 40 08/18/20 06:00 51 14 91 Mechanical Ventilator 40.00 08/18/20 05:00 40 18 92 Mechanical Ventilator 40.00 08/18/20 04:06 44 132/54 08/18/20 04:00 44 15 92 Mechanical Ventilator 40.00 08/18/20 04:00 Mechanical Ventilator 35 08/18/20 03:23 50 18 91 Mechanical Ventilator 40.00 08/18/20 02:16 48 18 91 35 08/18/20 02:00 53 17 92 Mechanical Ventilator 40.00 08/18/20 01:00 42 08/18/20 01:00 42 18 94 Mechanical Ventilator 40.00 08/18/20 00:00 42 17 93 Mechanical Ventilator 40.00 08/17/20 23:35 Mechanical Ventilator 35 08/17/20 23:00 48 18 90 Mechanical Ventilator 40.00 08/17/20 22:00 46 17 92 Mechanical Ventilator 40.00 08/17/20 21:58 46 18 92 35 08/17/20 21:00 44 18 93 Mechanical Ventilator 40.00 08/17/20 20:25 41 123/48 08/17/20 20:00 Mechanical Ventilator 35 08/17/20 20:00 46 17 92 Mechanical Ventilator 40.00 08/17/20 19:39 37.2 08/17/20 19:00 49 18 90 Mechanical Ventilator 40.00 08/17/20 19:00 49 08/17/20 18:00 54 18 94 Mechanical Ventilator 40.00 08/17/20 17:58 54 18 94 35 08/17/20 17:00 40 17 94 Mechanical Ventilator 40.00 08/17/20 16:00 42 17 94 Mechanical Ventilator 40.00 08/17/20 15:33 Mechanical Ventilator 40 08/17/20 15:25 36.1 08/17/20 15:00 42 17 93 Mechanical Ventilator 40.00 08/17/20 14:11 43 18 94 35 08/17/20 14:00 42 18 Mechanical Ventilator 40.00 08/17/20 13:35 44 145/62 08/17/20 13:00 43 17 93 Mechanical Ventilator 40.00 08/17/20 12:53 42 08/17/20 12:00 44 17 92 Mechanical Ventilator 40.00 08/17/20 11:57 Mechanical Ventilator 40 08/17/20 11:20 36.8 08/17/20 11:00 44 18 93 Mechanical Ventilator 40.00 08/17/20 10:20 47 18 97 35 08/17/20 10:00 43 17 96 Mechanical Ventilator 40.00 I & O 08/18/20 07:00 Intake Total 3630 ml Output Total 1700 ml Balance 1930 ml Height & Weight Height: '" Weight: lbs. oz. kg; 25.70 BMI Method: General Appearance: No Apparent Distress, Chronically ill, Other (Sedated on vent) Respiratory: Normal Breath Sounds, Decreased Breath Sounds Cardiovascular: Regular Rate, Rhythm Gastrointestinal: normal bowel sounds, non tender, soft Extremity: No Pedal Edema Neurologic/Psychiatric: Other (sedated) Skin: Normal Color, Warm/Dry Results Lab Laboratory Tests 08/17/20 04:14 08/18/20 04:15 Assessment/Plan Assessment/Plan Available chart/ vitals / labs / Images reviewed afebrile Video assessment done using teleICU camera Discussed with RN VENT SETTINGS 400- 18 ( sp 21) -30% +5 , PAP 18 - 7.28ph Pressors: off Drips: none Sedation: propofol 30 fentanyl 100 RASS -2 Lines : right radial nicho , R IJ cath 08/13 additional consultants: cards Intubated: 08/13 ECHO 08/14 - EF 55% , grd I dst dsfnc A/P Acute resp failure with AECOPD - cxr not changes , but still on 35 % - on appeopriate abx - will decrease sedation and will try to wean off - increase RR to 20 if not wanable Shock - pn levo . will cont gentle hydration and try to wan off AECOPD - nebs , add steroids modest dose- SM 40 q 6 - will decrease dose Infection - reportedly covid neg - sputum cx + H flu ,, bl;ood cx neg - Vanco 08/13= off , cefepime 08/13 Bradycardia - sinus , seen by cardiology , prn atropin Hypernatremia - will stop NS IVs , follow with h20 flushes Diaz: 08/[address] Nutrition: TF bolus DVT proph: lovenox 40 SUP - H2bl Plans in collaboration with bedside consultants and IM MDs. Discussed with Dr. Capps Discussed with RN to reach out if any questions or concerns A total of 25 minutes of critical care time was devoted to this patient today, required to treat and/or prevent further deterioration of critical care condition ( as above ) . Time spent included reviewing the patient chart, reviewing patient data including labs, x-rays, and tests, and discussing medical decision making, counseling and coordination of care. Critical Care: Ventilator Management CORINNA WELLS MD Aug 18, 2020 09:10
[2020-08-18] MEDS: LACTULOSE SYRUP 10GM/15ML (ENULOSE) 30ML UDC PO SCH ×2 (10:15→21:48)
[2020-08-18 10:20] VITALS: BP 147/50
[2020-08-18 14:25] VITALS: BP 89/45
[2020-08-18] MEDS: DOPamine DRIP 250 ML IV SCH (17:13)
[2020-08-18 18:25] VITALS: BP 131/48
[2020-08-18 22:01] VITALS: BP 162/63
[2020-08-19] MEDS: inSUlin ASPART (NovoLOG) 1 UNIT/0.01 ML (CHARGE PER UNIT) SC SCH ×4 (00:44→18:03)
[2020-08-19] MEDS: PROPOFOL DRIP (ICU) 100 ML IV SCH ×2 (00:45→06:19)
[2020-08-19] MEDS: CEFEPIME 1,000 MG/SWFI 10 ML IV PUSH IV SCH ×8 (02:02→18:04)
[2020-08-19 02:07] VITALS: BP 133/60
[2020-08-19] MEDS: RT-ALBUTEROL/IPRATROPIUM 3 ML (DUONEB) VIAL INH SCH ×6 (02:07→22:30)
[2020-08-19] MEDS: VANCOMYCIN 1 GM/NS 250 ML IVPB IV SCH ×4 (04:01→12:00)
[2020-08-19 04:18] LABS: ABG BASE EXCESS 1.2 MMOL/L (-2.5-2.5); ABG OXYGEN SATURATION 95 % (94-100); ABG PCO2 48 MMHG (35-45); ABG PH 7.35 (7.37-7.43); ABG PO2 74 MMHG (79-93); ABG TCO2 27.8 MMOL/L (21.0-31.0)
[2020-08-19 04:20] LABS: BASOPHILS % (AUTO) 0 % (0-10); EOSINOPHILS # (AUTO) 0.1 10^3/uL (0.0-0.3); EOSINOPHILS % (AUTO) 1 % (0-10); HEMATOCRIT 39 % (40-54); HEMOGLOBIN 12.3 g/dL (13.3-17.7); LYMPHOCYTES # (AUTO) 0.7 10^3/uL (1.0-4.0); LYMPHOCYTES % (AUTO) 7 % (12-44); MEAN CORPUSCULAR HEMOGLOBIN 31 pg (25-34); MEAN CORPUSCULAR HGB CONC 32 g/dL (32-36); MEAN CORPUSCULAR VOLUME 98 fL (80-99); MEAN PLATELET VOLUME 9.8 fL (9.0-12.2); MONOCYTES # (AUTO) 0.8 10^3/uL (0.0-1.0); MONOCYTES % (AUTO) 9 % (0-12); NEUTROPHILS # (AUTO) 6.6 10^3/uL (1.8-7.8); NEUTROPHILS % (AUTO) 69 % (42-75); PLATELET COUNT 236 10^3/uL (130-400); WHITE BLOOD COUNT 9.6 10^3/uL (4.3-11.0)
[2020-08-19 04:22] LABS: ALLENS TEST YES-POS; INSPIRED O2 40%; PATIENT TEMP 36.6; VENTILATOR NO
[2020-08-19 04:35] LABS: ALBUMIN 2.8 GM/DL (3.2-4.5); CHLORIDE 118 MMOL/L (98-107); POTASSIUM 4.2 MMOL/L (3.6-5.0); SODIUM 149 MMOL/L (135-145)
[2020-08-19 04:36] LABS: CALCIUM 7.8 MG/DL (8.5-10.1)
[2020-08-19 04:38] LABS: GLUCOSE 137 MG/DL (70-105)
[2020-08-19 04:39] LABS: BILIRUBIN,TOTAL 0.6 MG/DL (0.1-1.0); CARBON DIOXIDE 24 MMOL/L (21-32)
[2020-08-19 04:41] LABS: ALKALINE PHOSPHATASE 43 U/L (40-136); CREATININE SERUM 0.62 MG/DL (0.60-1.30); GFR ESTIMATED > 60; PHOSPHORUS 2.4 MG/DL (2.3-4.7)
[2020-08-19 04:42] LABS: BUN/CREATININE RATIO 37
[2020-08-19 04:44] LABS: ALANINE AMINOTRANSFERASE 45 U/L (0-55); MAGNESIUM 3.1 MG/DL (1.6-2.4)
[2020-08-19] MEDS: methylPREDNISolone 40 MG/ML (Solu-MEDROL) VIAL IV SCH ×3 (06:18→22:53)
[2020-08-19] MEDS: fentaNYL DRIP PRE-MIX 250 ML IV SCH (06:19)
[2020-08-19] MEDS: POTASSIUM CL 10MEQ/50ML IVPB 50 ML IV SCH (06:19)
[2020-08-19] MEDS: MAGNESIUM 1 GM/100 ML IVPB 100 ML IV SCH (06:19)
[2020-08-19] MEDS: KCL 20 MEQ TAB (K-DUR) PO SCH (06:20)
--- NOTE | 2020-08-19 06:24 | Progress Note - Hospitalist ---
Subjective HPI/CC On Admission Date Seen by Provider: Aug 19, 2020 Time Seen by Provider: 11:00 CC: Respiratory failure from AECOPD HPI: This is a 70yoWM clinic Pt of Dr. Dave who has a PMH of COPD and Parkinsons, he underwent emergency intubation due to rapid decline in status while at [place] [facility] to ICU admission. Central line is functioning well, procalcitonin at 0.87, IV steroids maintained, OG tube is placed and will start tube feedings today. Cefepime and Vancomycin maintained and sputum on preliminary culture at [facility] [place] Gram + Cocci. Subjective/Events-last exam Pt still on the vent Insurance wont approve [place] until theyve either been intubated for 21 days or a Trach for 7 days Fentanyl maintained for pain controlled Versed drip has been ordered prn Systolic BP elevates when oral care of any aggressive management initiated Has been off sedation Objective Exam Vital Signs Vital Signs Date Time Temp Pulse Resp B/P (MAP) Pulse Ox O2 Delivery O2 Flow Rate FiO2 08/20/20 03:00 52 19 164/73 (103) 93 Mechanical Ventilator 40.00 08/20/20 02:11 40 08/19/20 20:00 36.7 Capillary Refill : General Appearance: No Apparent Distress, WD/WN, Chronically ill, Other (sedated) Respiratory: No Accessory Muscle Use, No Respiratory Distress, Decreased Breath Sounds Cardiovascular: Regular Rate, Rhythm Results/Procedures Lab Patient resulted labs reviewed. Assessment/Plan Assessment and Plan Assess & Plan/Chief Complaint Assessment: AECOPD causing respiratory fatigue and intubation Pneumonia from staph hominis Smoker Parkinson's Infiltrates c/w PNA empirically placed on abx Leukocytosis Bradycardia Plan: Vent IV abx Supportive care Complex case TF to start 08/15/2020: Vent management IV antibiotics IV steroids Sedation 08/16/2020 Cardiology appreciated for bradycardia Failed weaning trial Likely will need [place] 08/17/2020: Attempt to wean failed May need [facility] [facility] for bradycardia Maintain vent 08/18/20: Wean attempt If fails wean will need [place] 08/19/20: Continue wean trial Monitor ABG Labs reviewed Critical Care Ventilator Management Diagnosis/Problems Diagnosis/Problems (1) Respiratory failure (2) COPD exacerbation (3) Smoker (4) Parkinson disease RENNY BATES DO Aug 19, 2020 06:24
[2020-08-19 06:47] VITALS: BP 139/51
--- NOTE | 2020-08-19 06:52 | Occ Therapy Progress Note ---
Therapy Progress Note Patient remains intubated. OT to initiate treatment when patient is medically stable and able to actively participate with skilled therapy. ELENA BAKER Aug 19, 2020 06:52
[2020-08-19] MEDS: ATROPINE INJECTION 1 MG/10 ML SYR (ABBOTT) IV SCH (07:35)
[2020-08-19] MEDS: NS IV 1000 ML 1,000 ML IV SCH (07:41)
--- NOTE | 2020-08-19 08:02 | Physical Therapy Progress Note ---
Therapy Progress Note Patient remains intubated and sedated. PT will continue to monitor patient status. KEREN LARA PT Aug 19, 2020 08:02
[2020-08-19] MEDS: ENOXAPARIN 40 MG/0.4 ML (LOVENOX) SYR SC SCH (08:03)
[2020-08-19] MEDS: FAMOTIDINE 20MG/2ML IV (PEPCID) IVP SCH ×2 (08:03→20:23)
[2020-08-19] MEDS: LACTULOSE SYRUP 10GM/15ML (ENULOSE) 30ML UDC PO SCH ×2 (08:03→20:23)
--- NOTE | 2020-08-19 08:34 | Diagnostic Imaging Report ---
INDICATION: Respiratory distress Portable chest shows normal heart size and vascularity. There are patchy lower lobe infiltrates and small effusion similar to the 08/18/20 study. The ET tube, OG tube and IJ line remain in place. IMPRESSION: Stable chest. Dictated by: Dictated on workstation # [id number]
[2020-08-19] MEDS ORDERED: MIDAZOLAM DRIP PRE-MIX 100 ML IV SCH (08:45)
[2020-08-19] MEDS: GABAPENTIN 300 MG (NEURONTIN) CAP PO SCH ×3 (09:02→20:23)
[2020-08-19] MEDS: SINEMET CR 50/200 (CARBIDOPA/LEVODOPA SA) TAB PO SCH ×4 (09:02→20:23)
[2020-08-19] MEDS ORDERED: LORazepam INJ 2 MG/ML (ATIVAN) VIAL IVP ONE (09:30)
--- NOTE | 2020-08-19 10:09 | Pulmonary Progress Note ---
Subjective Date Seen by a Provider: Aug 19, 2020 Time Seen by a Provider: 10:09 Sepsis Event Evaluation Height, Weight, BMI Height: '" Weight: lbs. oz. kg; 25.70 BMI Method: Exam Exam Vital Signs Date Time Temp Pulse Resp B/P (MAP) Pulse Ox O2 Delivery O2 Flow Rate FiO2 08/19/20 09:03 43 21 139/51 08/19/20 09:00 46 19 89 Mechanical Ventilator 40.00 08/19/20 08:00 36.8 08/19/20 08:00 67 47 92 Mechanical Ventilator 40.00 08/19/20 07:45 Mechanical Ventilator 40 08/19/20 07:00 40 18 95 Mechanical Ventilator 40.00 08/19/20 07:00 43 08/19/20 06:47 40 21 92 40 08/19/20 06:19 46 152/52 08/19/20 06:00 40 20 93 Mechanical Ventilator 40.00 08/19/20 05:00 39 20 93 Mechanical Ventilator 40.00 08/19/20 04:00 Mechanical Ventilator 40 08/19/20 04:00 41 16 94 Mechanical Ventilator 40.00 08/19/20 04:00 36.6 08/19/20 03:00 42 23 93 Mechanical Ventilator 40.00 08/19/20 02:07 41 20 93 40 08/19/20 02:00 44 13 98 Mechanical Ventilator 40.00 08/19/20 01:00 40 13 91 Mechanical Ventilator 40.00 08/19/20 01:00 40 08/19/20 00:45 42 136/50 08/19/20 00:00 Mechanical Ventilator 40 08/19/20 00:00 36.5 08/19/20 00:00 43 15 91 Mechanical Ventilator 40.00 08/18/20 23:00 53 16 93 Mechanical Ventilator 40.00 08/18/20 22:01 55 21 94 40 08/18/20 22:00 60 24 94 Mechanical Ventilator 40.00 08/18/20 21:00 41 20 93 Mechanical Ventilator 40.00 08/18/20 20:37 36.7 08/18/20 20:00 Mechanical Ventilator 40 08/18/20 20:00 40 20 93 Mechanical Ventilator 40.00 08/18/20 19:00 42 08/18/20 19:00 42 20 93 Mechanical Ventilator 40.00 08/18/20 18:25 45 18 93 40 08/18/20 18:00 43 20 93 Mechanical Ventilator 40.00 08/18/20 17:54 48 122/59 08/18/20 17:00 48 18 93 Mechanical Ventilator 40.00 08/18/20 16:25 Mechanical Ventilator 40 08/18/20 16:00 43 19 92 Mechanical Ventilator 40.00 08/18/20 16:00 36.0 08/18/20 15:00 45 20 93 Mechanical Ventilator 40.00 08/18/20 14:25 42 20 92 40 08/18/20 14:00 42 19 92 Mechanical Ventilator 40.00 08/18/20 13:00 43 08/18/20 13:00 42 20 92 Mechanical Ventilator 40.00 08/18/20 12:36 Mechanical Ventilator 40 08/18/20 12:00 47 20 91 Mechanical Ventilator 40.00 08/18/20 11:54 36.4 08/18/20 11:51 47 134/50 08/18/20 11:00 47 15 92 Mechanical Ventilator 40.00 08/18/20 10:20 51 26 97 50 I & O 08/19/20 07:00 Intake Total 2605 ml Output Total 2675 ml Balance -70 ml Height & Weight Height: '" Weight: lbs. oz. kg; 25.70 BMI Method: General Appearance: No Apparent Distress, WD/WN, Chronically ill, Other (sedated) Respiratory: No Accessory Muscle Use, No Respiratory Distress, Decreased Breath Sounds Cardiovascular: Bradycardia Gastrointestinal: normal bowel sounds, non tender, soft Extremity: No Pedal Edema Neurologic/Psychiatric: Alert Skin: Normal Color, Warm/Dry Results Lab Laboratory Tests 08/18/20 04:15 08/19/20 04:10 Assessment/Plan Assessment/Plan Available chart/ vitals / labs / Images reviewed afebrile I/O - neg 300 Video assessment done using teleICU camera Discussed with RN VENT SETTINGS 400- 18 ( sp ) -30% +5 , PAP 18 - 7.35 Pressors: off Drips: none Sedation: propofol 40 fentanyl 125 RASS -2 Lines : right radial nicho , R IJ cath 08/13 additional consultants: cards Intubated: 08/13 ECHO 08/14 - EF 55% , grd I dst dsfnc A/P Acute resp failure with AECOPD - cxr not changes , but still on 35 % - on appropriate abx - NEED TO decrease sedation and will try to wean off vent , reportedly failed SBT - discussed with [place] - will try today on fentanyl and versed ( TGL 300 , trying wean off propofol - will resume neurontin and parkinson meds OG, cont fentanyl with slow opioid weaning - increase RR to 20 if not wanable Shock - off levo AECOPD - nebs , add steroids modest dose- SM 40 q 8 - will decrease dose tomorrow agin Infection - reportedly covid neg - sputum cx + H flu ,, bl;ood cx neg - Vanco 08/13= off , cefepime 08/13 Bradycardia - sinus , seen by cardiology , prn atropin Hypernatremia - will stop NS IVs , fincrea H2O flushes Diaz: 08/[address] Nutrition: TF bolus DVT proph: lovenox 40 SUP - H2bl Plans in collaboration with bedside consultants and IM MDs. Discussed with RN to reach out if any questions or concerns A total of 37 minutes of critical care time was devoted to this patient today, required to treat and/or prevent further deterioration of critical care condition ( as above ) . Time spent included reviewing the patient chart, reviewing patient data including labs, x-rays, and tests, and discussing medical decision making, counseling and coordination of care. Critical Care: Critically Ill Patient CORINNA WELLS MD Aug 19, 2020 10:09
[2020-08-19 10:25] VITALS: BP 163/76
[2020-08-19] MEDS: BISACODYL 10 MG SUPP (DULCOLAX) PR SCH (10:44)
[2020-08-19] MEDS ORDERED: TROUGH ORDER-PHARMACY XX ONE (11:00)
[2020-08-19 13:38] VITALS: BP 175/76
[2020-08-19] MEDS ORDERED: fentaNYL DRIP PRE-MIX 250 ML IV ONE (14:51)
[2020-08-19] MEDS: DOPamine DRIP 250 ML IV SCH (15:29)
[2020-08-19] MEDS ORDERED: fentaNYL DRIP PRE-MIX 250 ML IV SCH (15:45)
[2020-08-19] MEDS: NOREPINEPHRINE 8 MG/250 ML 250 ML IV SCH (16:22)
[2020-08-19] MEDS ORDERED: CEFEPIME 1 GM/10 ML (MAXIPIME) VIAL ONE (17:36)
[2020-08-19] MEDS: fentaNYL DRIP PRE-MIX 250 ML IV PRN (18:03)
[2020-08-19 18:09] VITALS: BP 167/80
[2020-08-19] MEDS ORDERED: FAMOTIDINE 20MG/2ML IV (PEPCID) ONE (20:20)
[2020-08-19] MEDS: VANCOMYCIN INJECTION 750 MG in NS (IVPB) 250 ML IV SCH (20:23)
[2020-08-19 22:30] VITALS: BP 160/72
[2020-08-20] MEDS: CEFEPIME 1,000 MG/SWFI 10 ML IV PUSH IV SCH ×8 (01:00→19:49)
[2020-08-20 02:11] VITALS: BP 190/85
[2020-08-20] MEDS: RT-ALBUTEROL/IPRATROPIUM 3 ML (DUONEB) VIAL INH SCH ×6 (02:11→21:43)
[2020-08-20] MEDS ORDERED: fentaNYL DRIP PRE-MIX 250 ML IV ONE (04:36)
[2020-08-20] MEDS: inSUlin ASPART (NovoLOG) 1 UNIT/0.01 ML (CHARGE PER UNIT) SC SCH ×4 (04:50→18:00)
[2020-08-20 04:51] LABS: BASOPHILS % (AUTO) 0 % (0-10); EOSINOPHILS % (AUTO) 0 % (0-10); HEMATOCRIT 39 % (40-54); HEMOGLOBIN 12.5 g/dL (13.3-17.7); LYMPHOCYTES # (AUTO) 0.8 10^3/uL (1.0-4.0); LYMPHOCYTES % (AUTO) 7 % (12-44); MEAN CORPUSCULAR HEMOGLOBIN 31 pg (25-34); MEAN CORPUSCULAR HGB CONC 32 g/dL (32-36); MEAN CORPUSCULAR VOLUME 97 fL (80-99); MEAN PLATELET VOLUME 9.7 fL (9.0-12.2); MONOCYTES # (AUTO) 0.8 10^3/uL (0.0-1.0); MONOCYTES % (AUTO) 8 % (0-12); NEUTROPHILS % (AUTO) 69 % (42-75); PLATELET COUNT 250 10^3/uL (130-400); WHITE BLOOD COUNT 10.2 10^3/uL (4.3-11.0)
[2020-08-20 04:53] LABS: ABG OXYGEN SATURATION 77 % (94-100); ABG PCO2 53 MMHG (35-45); ABG PH 7.38 (7.37-7.43); ABG PO2 43 MMHG (79-93); ABG TCO2 32.6 MMOL/L (21.0-31.0)
[2020-08-20 04:54] LABS: ALLENS TEST YES-POS; INSPIRED O2 40; PATIENT TEMP 36.6; VENTILATOR NO
[2020-08-20 05:07] LABS: ALBUMIN 2.8 GM/DL (3.2-4.5); CHLORIDE 113 MMOL/L (98-107); POTASSIUM 4.4 MMOL/L (3.6-5.0); SODIUM 150 MMOL/L (135-145)
[2020-08-20 05:09] LABS: CALCIUM 8.1 MG/DL (8.5-10.1)
[2020-08-20 05:10] LABS: GLUCOSE 138 MG/DL (70-105)
[2020-08-20 05:11] LABS: CARBON DIOXIDE 29 MMOL/L (21-32)
[2020-08-20 05:12] LABS: BILIRUBIN,TOTAL 0.6 MG/DL (0.1-1.0)
[2020-08-20 05:13] LABS: ALKALINE PHOSPHATASE 38 U/L (40-136); PHOSPHORUS 2.7 MG/DL (2.3-4.7)
[2020-08-20 05:14] LABS: CREATININE SERUM 0.61 MG/DL (0.60-1.30); GFR ESTIMATED > 60
[2020-08-20 05:15] LABS: BUN/CREATININE RATIO 36
[2020-08-20 05:16] LABS: ALANINE AMINOTRANSFERASE 21 U/L (0-55)
[2020-08-20 05:17] LABS: MAGNESIUM 2.8 MG/DL (1.6-2.4)
[2020-08-20 05:18] LABS: NEUTROPHILS % (MANUAL) 81 %
[2020-08-20 05:19] LABS: LYMPHOCYTES % (MANUAL) 7 %; METAMYELOCYTES % 4 %; MONOCYTES % (MANUAL) 7 %; MYELOCYTES % 1 %
--- NOTE | 2020-08-20 05:31 | Progress Note - Hospitalist ---
Subjective HPI/CC On Admission Date Seen by Provider: Aug 20, 2020 Time Seen by Provider: 11:00 CC: Respiratory failure from AECOPD HPI: This is a 70yoWM clinic Pt of Dr. Dave who has a PMH of COPD and Parkinsons, he underwent emergency intubation due to rapid decline in status while at [place] [facility] to ICU admission. Central line is functioning well, procalcitonin at 0.87, IV steroids maintained, OG tube is placed and will start tube feedings today. Cefepime and Vancomycin maintained and sputum on preliminary culture at [facility] [place] shows Gram + Cocci. Subjective/Events-last exam Patient still intubated Sedation only with fentanyl Unable to wean Reviewed meds and labs Sodium level 150 so changed IV fluid to D5 Increasing free water in the tube feeds Bowels really moved after suppository Tracking better but not following commands Objective Exam Vital Signs Vital Signs Date Time Temp Pulse Resp B/P (MAP) Pulse Ox O2 Delivery O2 Flow Rate FiO2 08/21/20 04:00 45 20 160/72 (101) 93 Mechanical Ventilator 40.00 08/21/20 01:58 40 08/20/20 11:44 36.9 Capillary Refill : General Appearance: No Apparent Distress, WD/WN, Chronically ill, Other (Sedated and intubated) Respiratory: No Accessory Muscle Use, No Respiratory Distress, Decreased Breath Sounds Cardiovascular: Regular Rate, Rhythm Neurologic/Psychiatric: Other (Sedated) Results/Procedures Lab Laboratory Tests 08/21/20 04:24 Patient resulted labs reviewed. Assessment/Plan Assessment and Plan Assess & Plan/Chief Complaint Assessment: AECOPD causing respiratory fatigue and intubation Pneumonia from staph hominis Smoker Parkinson's Infiltrates c/w PNA empirically placed on abx Leukocytosis Bradycardia Plan: Vent IV abx Supportive care Complex case TF to start 08/15/2020: Vent management IV antibiotics IV steroids Sedation 08/16/2020 Cardiology appreciated for bradycardia Failed weaning trial Likely will need [place] 08/17/2020: Attempt to wean failed May need [facility] for bradycardia Maintain vent 08/18/20: Wean attempt If fails wean will need [place] 08/19/20: Continue wean trial Monitor ABG Labs reviewed 08/20/2020: Continue to attempt to wean Prognosis guarded Critical Care Critically Ill Patient Diagnosis/Problems Diagnosis/Problems (1) Respiratory failure (2) COPD exacerbation (3) Smoker (4) Parkinson disease RENNY BATES 3, 2021 05:31
[2020-08-20] MEDS: POTASSIUM CL 10MEQ/50ML IVPB 50 ML IV SCH (05:40)
[2020-08-20] MEDS: MAGNESIUM 1 GM/100 ML IVPB 100 ML IV SCH (05:40)
[2020-08-20] MEDS: KCL 20 MEQ TAB (K-DUR) PO SCH (05:40)
[2020-08-20] MEDS: fentaNYL DRIP PRE-MIX 250 ML IV PRN (06:03)
[2020-08-20] MEDS: methylPREDNISolone 40 MG/ML (Solu-MEDROL) VIAL IV SCH ×2 (06:03→17:53)
[2020-08-20 06:23] VITALS: BP 166/74
--- NOTE | 2020-08-20 06:53 | Occ Therapy Progress Note ---
Therapy Progress Note Patient remains intubated. OT to initiate treatment when patient is medically stable and able to actively participate with skilled therapy. ELENA BAKER Aug 20, 2020 06:53
[2020-08-20] MEDS: NOREPINEPHRINE 8 MG/250 ML 250 ML IV SCH (07:37)
[2020-08-20] MEDS: LACTULOSE SYRUP 10GM/15ML (ENULOSE) 30ML UDC PO SCH ×2 (07:37→20:18)
[2020-08-20] MEDS: BISACODYL 10 MG SUPP (DULCOLAX) PR SCH (07:37)
--- NOTE | 2020-08-20 08:08 | Physical Therapy Progress Note ---
Therapy Progress Note Patient remains sedated and intubated. PT will continue to monitor patient status. KEREN LARA PT Aug 20, 2020 08:08
[2020-08-20] MEDS: SINEMET CR 50/200 (CARBIDOPA/LEVODOPA SA) TAB PO SCH ×4 (08:14→20:53)
[2020-08-20] MEDS: GABAPENTIN 300 MG (NEURONTIN) CAP PO SCH ×3 (08:15→20:53)
[2020-08-20] MEDS: ENOXAPARIN 40 MG/0.4 ML (LOVENOX) SYR SC SCH (08:15)
[2020-08-20] MEDS: VANCOMYCIN INJECTION 750 MG in NS (IVPB) 250 ML IV SCH ×2 (08:15→20:53)
[2020-08-20] MEDS: FAMOTIDINE 20MG/2ML IV (PEPCID) IVP SCH ×2 (08:15→20:53)
--- NOTE | 2020-08-20 08:36 | Diagnostic Imaging Report ---
INDICATION: Intubation. Time of exam: 3:02 AM Correlation is made with prior chest from one day earlier. ET tube has tip above the alicia. There is a right-sided line with tip overlying the SVC. NG tube appears to pass into the stomach. Bilateral infiltrates and bilateral effusions, greatest on the right persists. There is no pneumothorax identified. IMPRESSION: Continued bilateral infiltrates and effusions, similar to examination one day earlier. Dictated by: Dictated on workstation # [id number]
--- NOTE | 2020-08-20 09:15 | Pulmonary Progress Note ---
Subjective Date Seen by a Provider: Aug 20, 2020 Time Seen by a Provider: 09:14 Sepsis Event Evaluation Height, Weight, BMI Height: '" Weight: lbs. oz. kg; 25.70 BMI Method: Exam Exam Vital Signs Date Time Temp Pulse Resp B/P (MAP) Pulse Ox O2 Delivery O2 Flow Rate FiO2 08/20/20 07:40 36.8 08/20/20 07:00 50 08/20/20 06:23 54 22 92 40 08/20/20 06:00 50 22 165/73 (103) 91 Mechanical Ventilator 40.00 08/20/20 05:00 53 16 166/71 (102) 91 Mechanical Ventilator 40.00 08/20/20 04:00 Mechanical Ventilator 40 08/20/20 04:00 53 16 163/67 (99) 91 Mechanical Ventilator 40.00 08/20/20 03:00 52 19 164/73 (103) 93 Mechanical Ventilator 40.00 08/20/20 02:11 50 20 92 40 08/20/20 02:00 54 20 180/86 (117) 95 Mechanical Ventilator 40.00 08/20/20 01:00 48 24 168/79 (108) 93 Mechanical Ventilator 40.00 08/20/20 01:00 50 08/20/20 00:00 Mechanical Ventilator 40 08/20/20 00:00 48 19 163/72 (102) 95 Mechanical Ventilator 40.00 08/19/20 23:00 49 21 165/74 (104) 95 Mechanical Ventilator 40.00 08/19/20 22:30 48 20 92 40 08/19/20 22:00 46 20 164/71 (102) 93 Mechanical Ventilator 40.00 08/19/20 21:00 48 20 168/80 (109) 93 Mechanical Ventilator 40.00 08/19/20 20:00 48 20 170/77 (108) 95 Mechanical Ventilator 40.00 08/19/20 20:00 36.7 08/19/20 20:00 Mechanical Ventilator 40 08/19/20 19:00 49 20 162/74 (103) 94 Mechanical Ventilator 40.00 08/19/20 19:00 50 08/19/20 18:09 54 23 94 40 08/19/20 18:01 46 19 167/80 (109) 96 Mechanical Ventilator 40.00 08/19/20 17:00 51 20 165/78 (107) 96 Mechanical Ventilator 40.00 08/19/20 16:17 Mechanical Ventilator 40 08/19/20 16:00 36.6 08/19/20 16:00 51 20 168/75 (106) 95 Mechanical Ventilator 40.00 08/19/20 15:30 Arterial Line 08/19/20 15:00 52 14 174/79 (110) 96 Mechanical Ventilator 40.00 08/19/20 14:00 48 17 174/76 (108) 95 Mechanical Ventilator 40.00 08/19/20 13:38 50 22 95 40 08/19/20 13:00 48 20 179/82 (114) 93 Mechanical Ventilator 40.00 08/19/20 12:47 51 08/19/20 12:15 Mechanical Ventilator 40 08/19/20 12:00 36.7 08/19/20 12:00 49 17 95 Mechanical Ventilator 40.00 08/19/20 11:00 45 17 94 Mechanical Ventilator 40.00 08/19/20 10:25 42 20 93 40 08/19/20 10:00 42 20 91 Mechanical Ventilator 40.00 I & O 08/20/20 07:00 Intake Total 1300 ml Output Total 2500 ml Balance -1200 ml Height & Weight Height: '" Weight: lbs. oz. kg; 25.70 BMI Method: General Appearance: No Apparent Distress, WD/WN, Chronically ill, Other (sedated) Respiratory: No Accessory Muscle Use, No Respiratory Distress, Decreased Breath Sounds Cardiovascular: Regular Rate, Rhythm Gastrointestinal: normal bowel sounds, non tender, soft Extremity: No Pedal Edema Neurologic/Psychiatric: Alert Skin: Normal Color, Warm/Dry Results Lab Laboratory Tests 08/19/20 04:10 08/20/20 04:43 Assessment/Plan Assessment/Plan Available chart/ vitals / labs / Images reviewed afebrile I/O - neg 900 Video assessment done using teleICU camera Discussed with RN VENT SETTINGS 400- 20 ( sp 21) -30% +5 , PAP 18 - 7.35 Pressors: off Drips: NS 30 Sedation: fentanyl 100, versed 2 RASS -2 Lines : right radial nicho 08/13 -out 08/19 , R IJ cath 08/13 additional consultants: cards Intubated: 08/13 ECHO 08/14 - EF 55% , grd I dst dsfnc Cxr 08/20- same A/P Acute resp failure with AECOPD - cxr not changes , but still on 35 % - on appropriate abx - NEED TO decrease sedation and will try to wean off vent ,- 08/19 - off propofol , 08/20 -decreasing fentanyl reportedly failed SBT - discussed with RN - will try today wean down sedation and do SBT again ( TGL 300 , off propofol - 08/19 resumed neurontin and parkinson meds OG Shock- resolved - off levo AECOPD - nebs , add steroids modest dose- SM 40 q 8 - will decrease 40 q12 08/21 Infection - covid neg - sputum cx + H flu ,, bl;ood cx neg - Vanco 08/13= off , cefepime 08/13 - cont . follow cxr , secretions improved Bradycardia - sinus , seen by cardiology , prn atropin Hypernatremia - will stop NS IVs , fincrese H2O flushes again , add D5w Diaz: 08/[address] Nutrition: TF bolus DVT proph: lovenox 40 SUP - H2bl Plans in collaboration with bedside consultants and IM MDs. Discussed with RN to reach out if any questions or concerns A total of 37 minutes of critical care time was devoted to this patient today, required to treat and/or prevent further deterioration of critical care conditio n ( as above ) . Time spent included reviewing the patient chart, reviewing patient data includi ng labs, x-rays, and tests, and discussing medical decision making, counseling and coordination of care. Critical Care: Critically Ill Patient CORINNA WELLS MD Aug 20, 2020 09:15
[2020-08-20 10:30] VITALS: BP 178/81
[2020-08-20] MEDS: D5W 1000 ML IV SOLUTION 1,000 ML IV SCH (10:47)
[2020-08-20] MEDS: hydrALAZINE (APESOLINE) 20 MG/ML VIAL IV PRN ×2 (11:42→16:00)
[2020-08-20 14:23] VITALS: BP 189/73
[2020-08-20] MEDS: KETOROLAC 30 MG/ML VIAL IVP PRN ×2 (17:53→19:09)
[2020-08-20 18:36] VITALS: BP 165/74
[2020-08-20 21:46] VITALS: BP 153/69
[2020-08-21] VITALS (7 sets, daily range): BP systolic 131–195; BP diastolic 66–85
[2020-08-21] MEDS ORDERED: fentaNYL DRIP PRE-MIX 250 ML IV ONE (00:46)
[2020-08-21] MEDS: inSUlin ASPART (NovoLOG) 1 UNIT/0.01 ML (CHARGE PER UNIT) SC SCH ×4 (00:49→17:11)
[2020-08-21] MEDS: CEFEPIME 1,000 MG/SWFI 10 ML IV PUSH IV SCH ×8 (00:49→20:30)
[2020-08-21] MEDS: fentaNYL DRIP PRE-MIX 250 ML IV PRN (00:50)
[2020-08-21] MEDS: RT-ALBUTEROL/IPRATROPIUM 3 ML (DUONEB) VIAL INH SCH ×6 (01:57→22:01)
[2020-08-21 04:31] LABS: ABG BASE EXCESS 8.1 MMOL/L (-2.5-2.5); ABG OXYGEN SATURATION 94 % (94-100); ABG PCO2 47 MMHG (35-45); ABG PH 7.45 (7.37-7.43); ABG PO2 67 MMHG (79-93); ABG TCO2 33.9 MMOL/L (21.0-31.0); ALLENS TEST YES-POS
[2020-08-21 04:32] LABS: INSPIRED O2 4; PATIENT TEMP 36.6; VENTILATOR NO
[2020-08-21 04:41] LABS: BASOPHILS # (AUTO) 0.1 10^3/uL (0.0-0.1); BASOPHILS % (AUTO) 1 % (0-10); EOSINOPHILS # (AUTO) 0.1 10^3/uL (0.0-0.3); EOSINOPHILS % (AUTO) 1 % (0-10); HEMATOCRIT 36 % (40-54); HEMOGLOBIN 11.6 g/dL (13.3-17.7); LYMPHOCYTES # (AUTO) 1.2 10^3/uL (1.0-4.0); LYMPHOCYTES % (AUTO) 11 % (12-44); MEAN CORPUSCULAR HEMOGLOBIN 31 pg (25-34); MEAN CORPUSCULAR HGB CONC 32 g/dL (32-36); MEAN CORPUSCULAR VOLUME 96 fL (80-99); MEAN PLATELET VOLUME 9.8 fL (9.0-12.2); MONOCYTES # (AUTO) 0.6 10^3/uL (0.0-1.0); MONOCYTES % (AUTO) 5 % (0-12); NEUTROPHILS # (AUTO) 7.2 10^3/uL (1.8-7.8); NEUTROPHILS % (AUTO) 70 % (42-75); PLATELET COUNT 244 10^3/uL (130-400); WHITE BLOOD COUNT 10.3 10^3/uL (4.3-11.0)
[2020-08-21 05:05] LABS: ALBUMIN 2.6 GM/DL (3.2-4.5); CHLORIDE 108 MMOL/L (98-107); POTASSIUM 4.1 MMOL/L (3.6-5.0); SODIUM 147 MMOL/L (135-145)
[2020-08-21 05:07] LABS: CALCIUM 7.8 MG/DL (8.5-10.1)
[2020-08-21 05:08] LABS: GLUCOSE 120 MG/DL (70-105); TOTAL PROTEIN 4.8 GM/DL (6.4-8.2); TRIGLYCERIDES 174 MG/DL (<150)
[2020-08-21 05:09] LABS: CARBON DIOXIDE 28 MMOL/L (21-32)
[2020-08-21 05:10] LABS: BILIRUBIN,TOTAL 0.8 MG/DL (0.1-1.0)
[2020-08-21 05:11] LABS: ALKALINE PHOSPHATASE 39 U/L (40-136); PHOSPHORUS 2.3 MG/DL (2.3-4.7)
[2020-08-21 05:12] LABS: CREATININE SERUM 0.58 MG/DL (0.60-1.30); GFR ESTIMATED > 60
[2020-08-21 05:13] LABS: BUN/CREATININE RATIO 40
[2020-08-21 05:14] LABS: ALANINE AMINOTRANSFERASE 23 U/L (0-55); MAGNESIUM 2.6 MG/DL (1.6-2.4)
[2020-08-21] MEDS: MAGNESIUM 1 GM/100 ML IVPB 100 ML IV SCH (05:32)
[2020-08-21] MEDS: D5W 1000 ML IV SOLUTION 1,000 ML IV SCH ×2 (05:32→08:14)
[2020-08-21] MEDS: KCL 20 MEQ TAB (K-DUR) PO SCH (05:32)
[2020-08-21] MEDS: POTASSIUM CL 10MEQ/50ML IVPB 50 ML IV SCH (05:32)
[2020-08-21] MEDS: methylPREDNISolone 40 MG/ML (Solu-MEDROL) VIAL IV SCH ×2 (05:40→17:06)
--- NOTE | 2020-08-21 06:36 | Progress Note - Hospitalist ---
Subjective HPI/CC On Admission Date Seen by Provider: Aug 21, 2020 Time Seen by Provider: 10:30 CC: Respiratory failure from AECOPD HPI: This is a 70yoWM clinic Pt of Dr. Dave who has a PMH of COPD and Parkinsons, he underwent emergency intubation due to rapid decline in status while at [place] [facility] to ICU admission. Central line is functioning well, procalcitonin at 0.87, IV steroids maintained, OG tube is placed and will start tube feedings today. Cefepime and Vancomycin maintained and sputum on preliminary culture at [facility] shows Gram + Cocci. Subjective/Events-last exam Patient still on the ventilator Spontaneous breathing trial ongoing Follow commands Wiggled his toes Blood pressure does become elevated during wean Lasix 40 mg will be given now Objective Exam Vital Signs Vital Signs Date Time Temp Pulse Resp B/P (MAP) Pulse Ox O2 Delivery O2 Flow Rate FiO2 08/22/20 04:00 94 Mechanical Ventilator 40 08/22/20 02:11 50 20 08/22/20 00:00 37.0 08/21/20 23:00 138/60 (86) 40.00 Capillary Refill : General Appearance: No Apparent Distress, WD/WN, Chronically ill, Other (Sedated and intubated) Respiratory: Crackles, Decreased Breath Sounds Cardiovascular: Regular Rate, Rhythm Results/Procedures Lab Laboratory Tests 08/22/20 03:25 Patient resulted labs reviewed. Assessment/Plan Assessment and Plan Assess & Plan/Chief Complaint Assessment: AECOPD causing respiratory fatigue and intubation Pneumonia from staph hominis Smoker Parkinson's Infiltrates c/w PNA empirically placed on abx Leukocytosis Bradycardia Plan: Vent IV abx Supportive care Complex case TF to start 08/15/2020: Vent management IV antibiotics IV steroids Sedation 08/16/2020 Cardiology appreciated for bradycardia Failed weaning trial Likely will need [place] 08/17/2020: Attempt to wean failed May need [place] [facility] for bradycardia Maintain vent 08/18/20: Wean attempt If fails wean will need [place] 08/19/20: Continue wean trial Monitor ABG Labs reviewed 08/20/2020: Continue to attempt to wean Prognosis guarded 08/21/2020: Lasix 40 mg IVP Weaning trial Critical Care Critically Ill Patient Diagnosis/Problems Diagnosis/Problems (1) Respiratory failure (2) COPD exacerbation (3) Smoker (4) Parkinson disease RENNY BATES DO Aug 21, 2020 06:36
--- NOTE | 2020-08-21 06:47 | Occ Therapy Progress Note ---
Therapy Progress Note Patient remains intubated. OT to initiate treatment when patient is medically stable and able to actively participate with skilled therapy. ELENA BAKER Aug 21, 2020 06:47
--- NOTE | 2020-08-21 07:51 | Diagnostic Imaging Report ---
Reason for examination: Intubated. Upright AP portable chest was obtained and compared to yesterday. NG tube in the left upper quadrant. ET tube tip is in good position between the clavicles and alicia. Continued bilateral mixed interstitial and alveolar infiltrates increased in the right lower lobe today. Persistent and unchanged in the left lower lobe. There is probably also a component of small effusions bilaterally. Right IJ central line projects to the mid SVC. No pneumothorax. Impression: 1. Support lines and tubes are in good position where visible. Bilateral infiltrates and pleural effusions, increased on the right today. Dictated by: Dictated on workstation # [id number]
--- NOTE | 2020-08-21 07:54 | Physical Therapy Progress Note ---
Therapy Progress Note Patient remains sedated and intubated. PT will continue to monitor patient status. KEREN LARA PT Aug 21, 2020 07:54
[2020-08-21] MEDS: LACTULOSE SYRUP 10GM/15ML (ENULOSE) 30ML UDC PO SCH ×2 (08:15→21:12)
[2020-08-21] MEDS: BISACODYL 10 MG SUPP (DULCOLAX) PR SCH (08:15)
[2020-08-21] MEDS: FAMOTIDINE 20MG/2ML IV (PEPCID) IVP SCH (08:23)
[2020-08-21] MEDS: VANCOMYCIN INJECTION 750 MG in NS (IVPB) 250 ML IV SCH (08:23)
[2020-08-21] MEDS: GABAPENTIN 300 MG (NEURONTIN) CAP PO SCH ×3 (08:23→20:31)
[2020-08-21] MEDS: ENOXAPARIN 40 MG/0.4 ML (LOVENOX) SYR SC SCH (08:23)
[2020-08-21] MEDS: SINEMET CR 50/200 (CARBIDOPA/LEVODOPA SA) TAB PO SCH ×4 (08:31→20:30)
[2020-08-21] MEDS: hydrALAZINE (APESOLINE) 20 MG/ML VIAL IV PRN ×2 (09:38→13:35)
[2020-08-21] MEDS: KETOROLAC 30 MG/ML VIAL IVP PRN ×2 (10:14→17:06)
[2020-08-21] MEDS ORDERED: LORazepam INJ 2 MG/ML (ATIVAN) VIAL IVP ONE (10:15)
[2020-08-21] MEDS ORDERED: fentaNYL INJ 100 MCG/2 ML AMP ONE (10:18)
[2020-08-21] MEDS ORDERED: LORazepam INJ 2 MG/ML (ATIVAN) VIAL ONE (10:19)
[2020-08-21] MEDS: fentaNYL INJ 100 MCG/2 ML AMP IVP PRN ×3 (10:21→18:22)
[2020-08-21] MEDS ORDERED: FUROSEMIDE 40 MG/4 ML INJ (LASIX) IVP ONE (11:15)
[2020-08-21] MEDS ORDERED: FUROSEMIDE 40 MG/4 ML INJ (LASIX) IVP NR (11:15)
--- NOTE | 2020-08-21 11:26 | Pulmonary Progress Note ---
Subjective Date Seen by a Provider: Aug 21, 2020 Time Seen by a Provider: 11:25 Sepsis Event Evaluation Height, Weight, BMI Height: '" Weight: lbs. oz. kg; 25.70 BMI Method: Exam Exam Vital Signs Date Time Temp Pulse Resp B/P (MAP) Pulse Ox O2 Delivery O2 Flow Rate FiO2 08/21/20 10:40 61 17 94 40 08/21/20 10:35 66 27 95 40 08/21/20 10:00 61 21 181/73 (109) 94 Mechanical Ventilator 40.00 08/21/20 09:00 51 20 175/75 (108) 92 Mechanical Ventilator 40.00 08/21/20 08:15 35.8 08/21/20 08:00 49 20 173/80 (111) 93 Mechanical Ventilator 40.00 08/21/20 08:00 92 Mechanical Ventilator 40 08/21/20 07:34 47 21 92 40 08/21/20 07:00 45 20 171/80 (110) 93 Mechanical Ventilator 40.00 08/21/20 07:00 46 08/21/20 06:00 43 19 144/77 (99) 93 Mechanical Ventilator 40.00 08/21/20 05:00 42 20 151/64 (93) 93 Mechanical Ventilator 40.00 08/21/20 04:00 45 20 160/72 (101) 93 Mechanical Ventilator 40.00 08/21/20 04:00 Mechanical Ventilator 40 08/21/20 03:00 47 20 158/72 (100) 93 Mechanical Ventilator 40.00 08/21/20 02:00 49 19 155/68 (97) 92 Mechanical Ventilator 40.00 08/21/20 01:58 49 20 92 40 08/21/20 01:00 48 19 152/68 (96) 94 Mechanical Ventilator 40.00 08/21/20 01:00 50 08/21/20 00:00 51 20 156/70 (98) 93 Mechanical Ventilator 40.00 08/20/20 23:54 Mechanical Ventilator 40 08/20/20 23:00 51 26 158/69 (98) 92 Mechanical Ventilator 40.00 08/20/20 22:00 50 16 150/68 (95) 93 Mechanical Ventilator 40.00 08/20/20 21:46 51 20 92 40 08/20/20 21:00 65 20 149/63 (91) 91 Mechanical Ventilator 40.00 08/20/20 20:00 Mechanical Ventilator 40 08/20/20 20:00 61 20 155/69 (97) 90 Mechanical Ventilator 40.00 08/20/20 19:00 99 24 173/79 (110) 93 Mechanical Ventilator 40.00 08/20/20 19:00 100 08/20/20 18:36 66 21 92 40 08/20/20 18:00 68 22 164/67 (99) 93 Mechanical Ventilator 40.00 08/20/20 17:00 68 19 165/69 (101) 94 Mechanical Ventilator 40.00 08/20/20 16:00 Mechanical Ventilator 40 08/20/20 16:00 91 19 161/72 (101) 78 Mechanical Ventilator 40.00 08/20/20 15:00 56 13 165/65 (98) 93 Mechanical Ventilator 40.00 08/20/20 14:23 73 26 92 40 08/20/20 14:00 55 16 175/75 (108) 94 Mechanical Ventilator 40.00 08/20/20 13:00 56 19 186/76 (112) 93 Mechanical Ventilator 40.00 08/20/20 13:00 58 08/20/20 12:00 53 19 174/76 (108) 95 Mechanical Ventilator 40.00 08/20/20 12:00 Mechanical Ventilator 40 08/20/20 11:44 36.9 I & O 08/21/20 06:59 Intake Total 3307.5 ml Output Total 2275 ml Balance 1032.5 ml Height & Weight Height: '" Weight: lbs. oz. kg; 25.70 BMI Method: General Appearance: No Apparent Distress, WD/WN, Chronically ill, Other (Sedated and intubated) Respiratory: No Accessory Muscle Use, No Respiratory Distress, Decreased Breath Sounds Cardiovascular: Regular Rate, Rhythm Gastrointestinal: normal bowel sounds, non tender, soft Extremity: No Pedal Edema Neurologic/Psychiatric: Other (Sedated) Skin: Normal Color, Warm/Dry Results Lab Laboratory Tests 08/20/20 04:43 08/21/20 04:24 Assessment/Plan Assessment/Plan Available chart/ vitals / labs / Images reviewed afebrile I/O - pos 130 ml Video assessment done using teleICU camera Discussed with RN VENT SETTINGS 400- 20 ( sp 21) -30% +5 , PAP 18 - 7.45/47 Pressors: off Drips: NS 30 Sedation: fentanyl 100, versed 2 RASS -2 Lines : ( right radial nicho 08/13 -out 08/19 ) R IJ cath 08/13- CONSIDER TO REMOVE , will place PICC if no goof periphearl ascess additional consultants: cards Intubated: 08/13 ECHO 08/14 - EF 55% , grd I dst dsfnc Cxr 08/20- same cxr 08/21 increased infiltrate on right A/P Acute resp failure with AECOPD/ PNA , Intubated: 08/13 - on 35 % - on appropriate abx - NEED TO decrease sedation and will try to wean off vent -08/19 - off propofol , - 08/19 resumed neurontin and parkinson meds OG -08/20 -off fentanyl for few hours , very restless , not follow commands , no improvement with toradol/tramadol - back to fentanyl gtt -08/21 - off all sedatives - follow some commands , starting prn fentanyl and try SBT gentle diuresis Shock- resolved - off levo AECOPD - nebs , add steroids modest dose- SM 40 q 8 - 08/20 : 40 q12 Infection - covid neg - sputum cx + H flu ,, bl;ood cx neg - Vanco 08/13= off , cefepime 08/13 - cont . follow cxr , secretions improved STILL SIGNIFICANT RLL INFILTRATE - IN NO PROGRESS ->PLANS FOR CT CHEST , will repeat sputum cx , Bradycardia - sinus , seen by cardiology , prn atropin Hypernatremia - will stop NS IVs , fincrese H2O flushes again , add D5w Diaz: 08/[address] Nutrition: TF bolus DVT proph: lovenox 40 SUP - H2bl Plans in collaboration with bedside consultants and IM MDs. Discussed with RN to reach out if any questions or concerns A total of 40 minutes of critical care time was devoted to this patient today, required to treat and/or prevent further deterioration of critical care condition ( as above ) . Time spent included reviewing the patient chart, reviewing patient data including labs, x-rays, and tests, and discussing medical decision making, counseling and coordination of care. CORINNA WELLS MD Aug 21, 2020 11:26
[2020-08-21 11:30] LABS: ABG BASE EXCESS 4.7 MMOL/L (-2.5-2.5); ABG OXYGEN SATURATION 96 % (94-100); ABG PCO2 41 MMHG (35-45); ABG PH 7.46 (7.37-7.43); ABG PO2 70 MMHG (79-93); ABG TCO2 29.6 MMOL/L (21.0-31.0)
[2020-08-21 11:31] LABS: INSPIRED O2 40%; PATIENT TEMP 37.4; VENTILATOR YES
[2020-08-21] MEDS ORDERED: fentaNYL INJ 100 MCG/2 ML AMP IVP PRN (14:15)
[2020-08-21] MEDS: LORazepam INJ 2 MG/ML (ATIVAN) VIAL IVP PRN ×2 (14:19→18:22)
[2020-08-21] MEDS: FAMOTIDINE 20 MG (PEPCID) TABLET GT SCH (20:30)
[2020-08-22] VITALS (7 sets, daily range): BP systolic 134–183; BP diastolic 57–96
[2020-08-22] MEDS: inSUlin ASPART (NovoLOG) 1 UNIT/0.01 ML (CHARGE PER UNIT) SC SCH ×4 (00:29→17:57)
[2020-08-22] MEDS: D5W 1000 ML IV SOLUTION 1,000 ML IV SCH ×2 (01:11→20:18)
[2020-08-22] MEDS: LORazepam INJ 2 MG/ML (ATIVAN) VIAL IVP PRN ×5 (01:19→23:39)
[2020-08-22] MEDS: RT-ALBUTEROL/IPRATROPIUM 3 ML (DUONEB) VIAL INH SCH ×6 (02:10→22:17)
[2020-08-22] MEDS: CEFEPIME 1,000 MG/SWFI 10 ML IV PUSH IV SCH ×8 (02:23→20:18)
[2020-08-22 03:42] LABS: BASOPHILS % (AUTO) 0 % (0-10); EOSINOPHILS # (AUTO) 0.1 10^3/uL (0.0-0.3); EOSINOPHILS % (AUTO) 1 % (0-10); HEMATOCRIT 35 % (40-54); HEMOGLOBIN 11.6 g/dL (13.3-17.7); LYMPHOCYTES # (AUTO) 1.1 10^3/uL (1.0-4.0); LYMPHOCYTES % (AUTO) 9 % (12-44); MEAN CORPUSCULAR HEMOGLOBIN 31 pg (25-34); MEAN CORPUSCULAR HGB CONC 33 g/dL (32-36); MEAN CORPUSCULAR VOLUME 95 fL (80-99); MEAN PLATELET VOLUME 9.8 fL (9.0-12.2); MONOCYTES # (AUTO) 0.5 10^3/uL (0.0-1.0); MONOCYTES % (AUTO) 4 % (0-12); NEUTROPHILS # (AUTO) 9.5 10^3/uL (1.8-7.8); NEUTROPHILS % (AUTO) 79 % (42-75); PLATELET COUNT 229 10^3/uL (130-400)
[2020-08-22 03:43] LABS: ABG BASE EXCESS 9.9 MMOL/L (-2.5-2.5); ABG OXYGEN SATURATION 95 % (94-100); ABG PCO2 48 MMHG (35-45); ABG PH 7.47 (7.37-7.43); ABG PO2 73 MMHG (79-93); ABG TCO2 35.6 MMOL/L (21.0-31.0)
[2020-08-22 03:46] LABS: ALLENS TEST YES-POS; INSPIRED O2 40%; PATIENT TEMP 37; VENTILATOR YES
[2020-08-22 03:56] LABS: CHLORIDE 86 MMOL/L (98-107); POTASSIUM 3.1 MMOL/L (3.6-5.0)
[2020-08-22 04:15] LABS: ALBUMIN 2.6 GM/DL (3.2-4.5); SODIUM 142 MMOL/L (135-145)
[2020-08-22 04:16] LABS: CALCIUM 7.9 MG/DL (8.5-10.1)
[2020-08-22 04:17] LABS: GLUCOSE 148 MG/DL (70-105)
[2020-08-22 04:18] LABS: TOTAL PROTEIN 4.7 GM/DL (6.4-8.2)
[2020-08-22 04:19] LABS: BILIRUBIN,TOTAL 0.8 MG/DL (0.1-1.0); CARBON DIOXIDE 30 MMOL/L (21-32)
[2020-08-22 04:21] LABS: ALKALINE PHOSPHATASE 45 U/L (40-136); GFR ESTIMATED > 60; PHOSPHORUS 3.3 MG/DL (2.3-4.7)
[2020-08-22 04:22] LABS: BUN/CREATININE RATIO 40
[2020-08-22 04:24] LABS: ALANINE AMINOTRANSFERASE 44 U/L (0-55); MAGNESIUM 2.4 MG/DL (1.6-2.4)
[2020-08-22] MEDS: POTASSIUM CL 10MEQ/50ML IVPB 50 ML IV SCH ×5 (04:25→07:42)
[2020-08-22] MEDS: fentaNYL INJ 100 MCG/2 ML AMP IVP PRN ×5 (04:32→23:38)
[2020-08-22] MEDS: methylPREDNISolone 40 MG/ML (Solu-MEDROL) VIAL IV SCH ×2 (05:41→17:28)
[2020-08-22] MEDS: KCL 20 MEQ TAB (K-DUR) PO SCH (06:12)
[2020-08-22] MEDS: MAGNESIUM 1 GM/100 ML IVPB 100 ML IV SCH (06:12)
--- NOTE | 2020-08-22 07:43 | Progress Note - Hospitalist ---
Subjective HPI/CC On Admission Date Seen by Provider: Aug 22, 2020 Time Seen by Provider: 11:00 CC: Respiratory failure from AECOPD HPI: This is a 70yoWM clinic Pt of Dr. Dave who has a PMH of COPD and Parkinsons, he underwent emergency intubation due to rapid decline in status while at [place] [facility] to ICU admission. Central line is functioning well, procalcitonin at 0.87, IV steroids maintained, OG tube is placed and will start tube feedings today. Cefepime and Vancomycin maintained and sputum on preliminary culture at [facility] shows Gram + Cocci. Subjective/Events-last exam Patient still on ventilator Breathing trial going pretty well Lasix 40 given IV push due to significant volume overload Denies any other concerns per nurse Objective Exam Vital Signs Vital Signs Date Time Temp Pulse Resp B/P (MAP) Pulse Ox O2 Delivery O2 Flow Rate FiO2 08/22/20 15:41 92 Mechanical Ventilator 35 08/22/20 14:16 53 23 08/22/20 14:00 155/75 (101) 40.00 08/22/20 12:00 37.1 Capillary Refill : General Appearance: No Apparent Distress, WD/WN, Chronically ill, Other (Intubated and sedated) Respiratory: Lungs Clear, Decreased Breath Sounds Cardiovascular: Regular Rate, Rhythm Results/Procedures Lab Laboratory Tests 08/22/20 03:25 Patient resulted labs reviewed. Assessment/Plan Assessment and Plan Assess & Plan/Chief Complaint Assessment: AECOPD causing respiratory fatigue and intubation Pneumonia from staph hominis Smoker Parkinson's Infiltrates c/w PNA empirically placed on abx Leukocytosis Bradycardia Plan: Vent IV abx Supportive care Complex case TF to start 08/15/2020: Vent management IV antibiotics IV steroids Sedation 08/16/2020 Cardiology appreciated for bradycardia Failed weaning trial Likely will need [place] 08/17/2020: Attempt to wean failed May need [place] [facility] for bradycardia Maintain vent 08/18/20: Wean attempt If fails wean will need [place] 08/19/20: Continue wean trial Monitor ABG Labs reviewed 08/20/2020: Continue to attempt to wean Prognosis guarded 08/21/2020: Lasix 40 mg IVP Weaning trial 08/22/2020: Attempt to wean Monitor closely Critical Care Critically Ill Patient Diagnosis/Problems Diagnosis/Problems (1) Respiratory failure (2) COPD exacerbation (3) Smoker (4) Parkinson disease RENNY BATES 5, 2021 07:43
[2020-08-22] MEDS: KETOROLAC 30 MG/ML VIAL IVP PRN ×2 (08:05→15:37)
[2020-08-22] MEDS: FAMOTIDINE 20 MG (PEPCID) TABLET GT SCH ×2 (08:05→20:18)
[2020-08-22] MEDS: ENOXAPARIN 40 MG/0.4 ML (LOVENOX) SYR SC SCH (08:05)
[2020-08-22] MEDS: GABAPENTIN 300 MG (NEURONTIN) CAP PO SCH ×3 (08:06→20:18)
[2020-08-22] MEDS: SINEMET CR 50/200 (CARBIDOPA/LEVODOPA SA) TAB PO SCH ×4 (08:06→20:18)
[2020-08-22] MEDS: BISACODYL 10 MG SUPP (DULCOLAX) PR SCH (08:06)
[2020-08-22] MEDS: LACTULOSE SYRUP 10GM/15ML (ENULOSE) 30ML UDC PO SCH ×2 (08:06→20:18)
--- NOTE | 2020-08-22 08:59 | Diagnostic Imaging Report ---
Indication: Dyspnea, follow-up respiratory failure. Comparison: 08/21/2020. Discussion: Single portable upright view of the chest was obtained. Stable support lines and catheter. Stable normal heart size. Bilateral pleural effusions are stable. Severe pulmonary infiltrates are stable on the left and slightly decreased on the right. No pneumothorax. Impression: 1. Severe pulmonary infiltrates are again noted bilaterally, slightly decreased on the right. Pleural effusions are stable. Dictated by: Dictated on workstation # [id number]
[2020-08-22 11:05] LABS: ABG BASE EXCESS 10.1 MMOL/L (-2.5-2.5); ABG OXYGEN SATURATION 87 % (94-100); ABG PCO2 43 MMHG (35-45); ABG PO2 53 MMHG (79-93); ABG TCO2 35.2 MMOL/L (21.0-31.0)
[2020-08-22 11:07] LABS: ALLENS TEST YES-POS; INSPIRED O2 35%; PATIENT TEMP 37.2; VENTILATOR YES
[2020-08-22] MEDS ORDERED: FUROSEMIDE 40 MG/4 ML INJ (LASIX) IVP NR (11:30)
[2020-08-22] MEDS ORDERED: fentaNYL INJ 100 MCG/2 ML AMP ONE (13:22)
--- NOTE | 2020-08-22 15:24 | Progress Note - Cardiology ---
Cardiology SOAP Progress Note Subjective: Intubated, on mech vent, unable to provide any history Objective: I&O/Vital Signs 08/22/20 08/22/20 08/22/20 08/22/20 04:00 04:00 05:00 06:00 Pulse 64 45 47 Resp 22 20 19 B/P (MAP) 133/64 (87) 142/68 (92) 153/69 (97) Pulse Ox 96 94 93 94 O2 Delivery Mechanical Ventilator Mechanical Ventilator Mechanical Ventilator Mechanical Ventilator O2 Flow Rate 40.00 40.00 40.00 FiO2 40 08/22/20 08/22/20 08/22/20 08/22/20 06:19 07:00 07:00 07:33 Temp 37.1 Pulse 45 52 47 Resp 19 20 B/P (MAP) 157/71 (99) Pulse Ox 94 94 O2 Delivery Mechanical Ventilator O2 Flow Rate 40.00 FiO2 40 08/22/20 08/22/20 08/22/20 08/22/20 07:51 08:00 09:00 09:54 Pulse 51 59 66 Resp 20 23 12 B/P (MAP) 158/76 (103) 169/83 (111) Pulse Ox 93 92 94 93 O2 Delivery Mechanical Ventilator Mechanical Ventilator Mechanical Ventilator O2 Flow Rate 40.00 40.00 FiO2 40 35 08/22/20 08/22/20 08/22/20 08/22/20 10:00 10:31 11:00 12:00 Pulse 56 75 59 61 Resp 10 20 11 17 B/P (MAP) 174/86 (115) 168/84 (112) 178/90 (119) Pulse Ox 93 92 94 95 O2 Delivery Mechanical Ventilator Mechanical Ventilator Mechanical Ventilator O2 Flow Rate 40.00 40.00 40.00 FiO2 35 08/22/20 08/22/20 08/22/20 08/22/20 12:00 12:00 12:35 13:00 Temp 37.1 Pulse 53 49 B/P (MAP) 154/75 (101) Pulse Ox 94 94 O2 Delivery Mechanical Ventilator Mechanical Ventilator O2 Flow Rate 40.00 FiO2 35 08/22/20 08/22/20 14:00 14:16 Pulse 55 53 Resp 15 23 B/P (MAP) 155/75 (101) Pulse Ox 94 93 O2 Delivery Mechanical Ventilator O2 Flow Rate 40.00 FiO2 35 08/22/20 00:00 Intake Total 885 ml Output Total 3080 ml Balance -2195 ml Constitutional: appears stated age, well-developed, well-nourished, other (Intubated/ventilated) Respiratory: other (Intubated/ventilated.) Cardiovascular: regular rate-rhythm, bradycardia, S1 and S2; No diastolic murmur, No systolic murmur Gastrointestional: soft, audible bowel sounds; No spleenomegaly Extremities: No clubbing, No cyanosis; no lower extremity edema bilateral; No significant edema Neurologic/Psychiatric: other (Intubated/ventilated.) Skin: No rash, No ulcerations Results/Procedures: Labs Laboratory Tests 08/21/20 17:04: Glucometer 104 08/21/20 19:40: Vancomycin Level Trough 11.1 08/22/20 00:14: Glucometer 135H 08/22/20 03:25: White Blood Count 12.0H, Red Blood Count 3.70L, Hemoglobin 11.6L, Hematocrit 35L , Mean Corpuscular Volume 95, Mean Corpuscular Hemoglobin 31, Mean Corpuscular Hemoglobin Concent 33, Red Cell Distribution Width 14.6H, Platelet Count 229, Mean Platelet Volume 9.8, Immature Granulocyte % (Auto) 7, Neutrophils (%) (Auto) 79H, Lymphocytes (%) (Auto) 9L, Monocytes (%) (Auto) 4, Eosinophils (%) (Auto) 1, Basophils (%) (Auto) 0, Neutrophils # (Auto) 9.5H, Lymphocytes # (Auto) 1.1, Monocytes # (Auto) 0.5, Eosinophils # (Auto) 0.1, Basophils # (Auto) 0.0, Immature Granulocyte # (Auto) 0.8H, Blood Gas Puncture Site LEFT RADIAL, Blood Gas Patient Temperature 37, Arterial Blood pH 7.47H, Arterial Blood Pa rtial Pressure CO2 48H, Arterial Blood Partial Pressure O2 73L, Arterial Blood HCO3 34H, Arterial Blood Total CO2 35.6H, Arterial Blood Oxygen Saturation 95, Arterial Blood Base Excess 9.9H, Ricky Test YES-POS, Blood Gas Ventilator Setting YES, Blood Gas Inspired Oxygen 40%, Sodium Level 142, Potassium Level 3.1L, Chloride Level 86L, Carbon Dioxide Level 30, Anion Gap 26H, Blood Urea Nitrogen 24H, Creatinine 0.60, Estimat Glomerular Filtration Rate > 60, BUN/Creatinine Ratio 40, Glucose Level 148H, Calcium Level 7.9L, Corrected Calcium 9.0, Phosphorus Level 3.3, Magnesium Level 2.4, Total Bilirubin 0.8, Aspartate Amino Transf (AST/SGOT) 47H, Alanine Aminotransferase (ALT/SGPT) 44, Alkaline Phosphatase 45, Total Protein 4.7L, Albumin 2.6L 08/22/20 10:55: Blood Gas Puncture Site RIGHT RADIAL, Blood Gas Patient Temperature 37.2, Arterial Blood pH 7.50H, Arterial Blood Partial Pressure CO2 43, Arterial Blood Partial Pressure O2 53L, Arterial Blood HCO3 34H, Arterial Blood Total CO2 35.2H , Arterial Blood Oxygen Saturation 87L, Arterial Blood Base Excess 10.1H, Ricky Test YES-POS, Blood Gas Ventilator Setting YES, Blood Gas Inspired Oxygen 35% 08/22/20 11:14: Glucometer 111H Microbiology 08/14/20 Gram Stain - Final, Complete 08/14/20 Sputum Culture - Final, Complete Haemophilus influenza 08/14/20 Blood Culture - Final, Complete No growth Laboratory Tests 08/21/20 04:24 08/22/20 03:25 A/P: Assessment: Ac resp failure due to ac exac of COPD due to pneumonia Sinus bradycardia, likely due to sedation, hemodynamically non-significant H/o hypertension, none currently Plan: * Management of ac resp failure is with the Med and Pulm services * Bradycardia is sinus michael and has not caused any hemodynamic impairment so far. With lessening of sedation, the heart rate is found to increase * Monitor labs and replenish electrolytes ANGIE PINA MD FACP FAC CCDS Aug 22, 2020 15:24
[2020-08-23] MEDS: inSUlin ASPART (NovoLOG) 1 UNIT/0.01 ML (CHARGE PER UNIT) SC SCH ×4 (01:25→18:04)
[2020-08-23] MEDS: KETOROLAC 30 MG/ML VIAL IVP PRN ×3 (01:32→22:29)
[2020-08-23] MEDS: CEFEPIME 1,000 MG/SWFI 10 ML IV PUSH IV SCH ×8 (01:32→21:02)
[2020-08-23] MEDS: RT-ALBUTEROL/IPRATROPIUM 3 ML (DUONEB) VIAL INH SCH ×6 (02:04→21:12)
[2020-08-23 02:05] VITALS: BP 159/81
[2020-08-23] MEDS: LORazepam INJ 2 MG/ML (ATIVAN) VIAL IVP PRN ×3 (03:09→23:25)
[2020-08-23 03:40] LABS: BASOPHILS % (AUTO) 0 % (0-10); EOSINOPHILS # (AUTO) 0.1 10^3/uL (0.0-0.3); EOSINOPHILS % (AUTO) 1 % (0-10); HEMATOCRIT 36 % (40-54); HEMOGLOBIN 11.8 g/dL (13.3-17.7); LYMPHOCYTES # (AUTO) 1.3 10^3/uL (1.0-4.0); LYMPHOCYTES % (AUTO) 11 % (12-44); MEAN CORPUSCULAR HEMOGLOBIN 31 pg (25-34); MEAN CORPUSCULAR HGB CONC 33 g/dL (32-36); MEAN CORPUSCULAR VOLUME 93 fL (80-99); MEAN PLATELET VOLUME 9.7 fL (9.0-12.2); MONOCYTES # (AUTO) 0.6 10^3/uL (0.0-1.0); MONOCYTES % (AUTO) 5 % (0-12); NEUTROPHILS # (AUTO) 9.6 10^3/uL (1.8-7.8); NEUTROPHILS % (AUTO) 77 % (42-75); PLATELET COUNT 226 10^3/uL (130-400); WHITE BLOOD COUNT 12.4 10^3/uL (4.3-11.0)
[2020-08-23 03:45] LABS: ALBUMIN 2.7 GM/DL (3.2-4.5); CHLORIDE 100 MMOL/L (98-107); POTASSIUM 3.9 MMOL/L (3.6-5.0); SODIUM 141 MMOL/L (135-145)
[2020-08-23 03:46] LABS: CALCIUM 8.1 MG/DL (8.5-10.1)
[2020-08-23 03:47] LABS: ABG BASE EXCESS 9.2 MMOL/L (-2.5-2.5); ABG OXYGEN SATURATION 94 % (94-100); ABG PCO2 41 MMHG (35-45); ABG PH 7.51 (7.37-7.43); ABG PO2 64 MMHG (79-93); ABG TCO2 34.3 MMOL/L (21.0-31.0); ALLENS TEST YES-POS; INSPIRED O2 35%
[2020-08-23 03:48] LABS: PATIENT TEMP 36; VENTILATOR YES
[2020-08-23 03:48] LABS: GLUCOSE 123 MG/DL (70-105); TOTAL PROTEIN 5.2 GM/DL (6.4-8.2)
[2020-08-23 03:49] LABS: BILIRUBIN,TOTAL 0.9 MG/DL (0.1-1.0); CARBON DIOXIDE 30 MMOL/L (21-32)
[2020-08-23 03:51] LABS: ALKALINE PHOSPHATASE 44 U/L (40-136); CREATININE SERUM 0.59 MG/DL (0.60-1.30); GFR ESTIMATED > 60; PHOSPHORUS 3.6 MG/DL (2.3-4.7)
[2020-08-23] MEDS: KCL 20 MEQ TAB (K-DUR) PO SCH (03:52)
[2020-08-23] MEDS: POTASSIUM CL 10MEQ/50ML IVPB 50 ML IV SCH (03:52)
[2020-08-23] MEDS: MAGNESIUM 1 GM/100 ML IVPB 100 ML IV SCH (03:52)
[2020-08-23 03:53] LABS: BUN/CREATININE RATIO 37
[2020-08-23 03:54] LABS: ALANINE AMINOTRANSFERASE 77 U/L (0-55); MAGNESIUM 2.3 MG/DL (1.6-2.4)
[2020-08-23] MEDS: fentaNYL INJ 100 MCG/2 ML AMP IVP PRN (05:21)
[2020-08-23] MEDS: methylPREDNISolone 40 MG/ML (Solu-MEDROL) VIAL IV SCH ×2 (06:02→18:04)
[2020-08-23 06:51] VITALS: BP 155/79
--- NOTE | 2020-08-23 07:09 | Diagnostic Imaging Report ---
EXAM: Portable erect AP chest at 4:11 AM INDICATION: Respiratory distress FINDINGS: The heart size is stable when compared to the prior exam of 08/22/2020. The diffuse alveolar/interstitial pulmonary infiltrates involving both lungs seen previously are again evident. The lung bases may be slightly better aerated than on the prior study. The mediastinum is not widened. The osseous structures are intact. The supportive tubes and lines seem to be stable in position. IMPRESSION: The appearance of the chest has improved somewhat since the prior exam as the lung bases do seem slightly better aerated. Overall, there has been no significant change. A follow-up study would be recommended for continued evaluation. Dictated by: Dictated on workstation # [id number]
[2020-08-23] MEDS: ENOXAPARIN 40 MG/0.4 ML (LOVENOX) SYR SC SCH (08:07)
[2020-08-23] MEDS: GABAPENTIN 300 MG (NEURONTIN) CAP PO SCH ×3 (08:07→21:03)
[2020-08-23] MEDS: FAMOTIDINE 20 MG (PEPCID) TABLET GT SCH ×2 (08:07→21:03)
[2020-08-23] MEDS: SINEMET CR 50/200 (CARBIDOPA/LEVODOPA SA) TAB PO SCH ×4 (08:07→21:02)
[2020-08-23] MEDS: BISACODYL 10 MG SUPP (DULCOLAX) PR SCH ×2 (08:07→08:16)
[2020-08-23] MEDS: LACTULOSE SYRUP 10GM/15ML (ENULOSE) 30ML UDC PO SCH ×2 (08:07→21:02)
--- NOTE | 2020-08-23 08:17 | Progress Note - Hospitalist ---
Subjective HPI/CC On Admission Date Seen by Provider: Aug 23, 2020 Time Seen by Provider: 11:30 CC: Respiratory failure from AECOPD HPI: This is a 70yoWM clinic Pt of Dr. Dave who has a PMH of COPD and Parkinsons, he underwent emergency intubation due to rapid decline in status while at [place] [facility] to ICU admission. Central line is functioning well, procalcitonin at 0.87, IV steroids maintained, OG tube is placed and will start tube feedings today. Cefepime and Vancomycin maintained and sputum on preliminary [place] [facility] [place] Gram + Cocci. Subjective/Events-last exam No significant new problems Extubated today without difficulty Left wrist is flaccid but x-ray showed possible fracture but he denies any pain so we will consult orthopedics tomorrow Check meds and labs ABG reviewed Appreciate eICU and weaning protocol Review of Systems General: Fatigue Pulmonary: Cough Objective Exam Vital Signs Vital Signs Date Time Temp Pulse Resp B/P (MAP) Pulse Ox O2 Delivery O2 Flow Rate FiO2 08/23/20 19:38 37.4 08/23/20 19:27 Vapotherm 25.00 50.00 08/23/20 18:11 97 60 08/23/20 18:00 51 11 162/75 (104) Capillary Refill : General Appearance: No Apparent Distress, WD/WN, Chronically ill Respiratory: No Accessory Muscle Use, No Respiratory Distress, Decreased Breath Sounds Cardiovascular: Regular Rate, Rhythm Neurologic/Psychiatric: Alert, Disoriented Results/Procedures Lab Laboratory Tests 08/23/20 03:34 08/23/20 03:35 Patient resulted labs reviewed. Assessment/Plan Assessment and Plan Assess & Plan/Chief Complaint Assessment: AECOPD causing respiratory fatigue and intubation status post extubation on 08/23/2020 Pneumonia from staph hominis Smoker Parkinson's Infiltrates c/w PNA empirically placed on abx Leukocytosis Bradycardia Left wrist/hand flaccidity will evaluate abnormal x-ray with orthopedics Plan: Vent IV abx Supportive care Complex case TF to start 08/15/2020: Vent management IV antibiotics IV steroids Sedation 08/16/2020 Cardiology appreciated for bradycardia Failed weaning trial Likely will need [place] 08/17/2020: Attempt to wean failed May need [place] [facility] for bradycardia Maintain vent 08/18/20: Wean attempt If fails wean will need [place] 08/19/20: Continue wean trial Monitor ABG Labs reviewed 08/20/2020: Continue to attempt to wean Prognosis guarded 08/21/2020: Lasix 40 mg IVP Weaning trial 08/22/2020: Attempt to wean Monitor closely 08/23/20: Extubated today Monitor closely Left wrist evaluation Critical Care Critically Ill Patient Diagnosis/Problems Diagnosis/Problems (1) Respiratory failure (2) COPD exacerbation (3) Smoker (4) Parkinson disease RENNY BATES DO Aug 23, 2020 08:17
[2020-08-23 08:53] VITALS: BP 188/94
[2020-08-23 09:50] VITALS: BP 187/100
[2020-08-23 09:59] LABS: ABG OXYGEN SATURATION 95 % (94-100); ABG PCO2 44 MMHG (35-45); ABG PH 7.49 (7.37-7.43); ABG PO2 71 MMHG (79-93); ABG TCO2 34.2 MMOL/L (21.0-31.0)
[2020-08-23 10:00] LABS: INSPIRED O2 35%; PATIENT TEMP 37.3
[2020-08-23 10:01] LABS: VENTILATOR YES
--- NOTE | 2020-08-23 11:06 | Diagnostic Imaging Report ---
INDICATION: Pain, possible break COMPARISON: None available. TECHNIQUE: 3 radiographs of the left wrist dated 08/23/2020. FINDINGS: Lucency is present associated with the most distal aspect of the ulna near the ulnar styloid. No additional fracture. No dislocation. No destructive osseous process. Carpal alignment is well-maintained. Scapholunate interval is within normal limits. Mild scattered degenerative changes. No suspicious radiopaque foreign body. Mild soft tissue swelling involving the hand and wrist. IMPRESSION: Nondisplaced fracturing versus superimposition of osseous structures associated with the distal ulna near the ulnar styloid. Recommend correlation for focal pain at this location. No additional acute fracture with mild scattered degenerative changes and soft tissue swelling present. Dictated by: Dictated on workstation # [id number]
--- NOTE | 2020-08-23 15:40 | Progress Note - Cardiology ---
Cardiology SOAP Progress Note Subjective: No cp or palp or syncope No shortness of breath at rest Gen weakness and malaise No n/v Objective: I&O/Vital Signs 08/23/20 08/23/20 08/23/20 08/23/20 04:00 04:00 05:00 06:00 Pulse 46 45 44 Resp 19 19 20 B/P (MAP) 162/91 (114) 154/86 (108) 175/80 (111) Pulse Ox 93 93 93 93 O2 Delivery Mechanical Ventilator Mechanical Ventilator Mechanical Ventilator Mechanical Ventilator O2 Flow Rate 35.00 35.00 35.00 FiO2 35 08/23/20 08/23/20 08/23/20 08/23/20 06:51 07:00 07:00 07:41 Pulse 44 45 44 Resp 20 19 B/P (MAP) 175/78 (110) Pulse Ox 93 93 92 O2 Delivery Mechanical Ventilator Mechanical Ventilator O2 Flow Rate 35.00 FiO2 35 35 08/23/20 08/23/20 08/23/20 08/23/20 08:00 08:00 08:53 09:00 Temp 36.4 Pulse 67 59 61 Resp 15 14 10 B/P (MAP) 166/88 (114) 173/82 (112) Pulse Ox 93 95 93 O2 Delivery Mechanical Ventilator Mechanical Ventilator O2 Flow Rate 35.00 35.00 FiO2 35 08/23/20 08/23/20 08/23/20 08/23/20 09:50 10:00 10:53 11:00 Pulse 63 64 63 Resp 14 14 11 B/P (MAP) 149/86 (107) 163/85 (111) Pulse Ox 92 90 97 O2 Delivery Mechanical Ventilator Vapotherm Vapotherm O2 Flow Rate 35.00 35.00 35.00 90.00 90.00 FiO2 35 08/23/20 08/23/20 08/23/20 08/23/20 11:26 11:28 11:51 12:00 Temp 37.2 Pulse 69 Resp 11 B/P (MAP) 157/77 (103) Pulse Ox 96 97 O2 Delivery Vapotherm Vapotherm Vapotherm O2 Flow Rate 30.00 35.00 35.00 80.00 80.00 FiO2 80 08/23/20 08/23/20 08/23/20 08/23/20 12:35 12:35 13:00 14:00 Pulse 59 52 55 Resp 11 B/P (MAP) 160/74 (102) 157/80 (122) Pulse Ox 94 97 95 O2 Delivery Vapotherm Vapotherm Vapotherm O2 Flow Rate 35.00 35.00 35.00 80.00 80.00 FiO2 80 08/23/20 08/23/20 08/23/20 14:24 14:31 15:00 Pulse 52 Resp 13 B/P (MAP) 160/74 (102) Pulse Ox 96 94 O2 Delivery Vapotherm Vapotherm Vapotherm O2 Flow Rate 30.00 35.00 35.00 60.00 60.00 FiO2 80 08/23/20 00:00 Intake Total 790 ml Output Total 2850 ml Balance -2060 ml Constitutional: appears stated age, AAO x 3, well-developed, well-nourished Respiratory: other (fair air entry, prolonged exp, diminished air entry at bases) Cardiovascular: regular rate-rhythm, bradycardia, S1 and S2; No diastolic murmur, No systolic murmur Gastrointestional: No tender; soft; No guarding; audible bowel sounds; No spleenomegaly Extremities: No clubbing, No cyanosis; no lower extremity edema bilateral; No significant edema Neurologic/Psychiatric: oriented x 3, other (moves all limbs equally) Skin: normal color, warm/dry; No rash, No ulcerations Results/Procedures: Labs Laboratory Tests 08/22/20 17:55: Glucometer 111H 08/23/20 03:34: White Blood Count 12.4H, Red Blood Count 3.86L, Hemoglobin 11.8L, Hematocrit 36L , Mean Corpuscular Volume 93, Mean Corpuscular Hemoglobin 31, Mean Corpuscular Hemoglobin Concent 33, Red Cell Distribution Width 13.8, Platelet Count 226, Mean Platelet Volume 9.7, Immature Granulocyte % (Auto) 6, Neutrophils (%) (Auto) 77H, Lymphocytes (%) (Auto) 11L, Monocytes (%) (Auto) 5, Eosinophils (%) (Auto) 1, Basophils (%) (Auto) 0, Neutrophils # (Auto) 9.6H, Lymphocytes # (Auto) 1.3, Monocytes # (Auto) 0.6, Eosinophils # (Auto) 0.1, Basophils # (Auto) 0.0, Immature Granulocyte # (Auto) 0.7H 08/23/20 03:35: Sodium Level 141, Potassium Level 3.9, Chloride Level 100, Carbon Dioxide Level 30, Anion Gap 11, Blood Urea Nitrogen 22H, Creatinine 0.59L, Estimat Glomerular Filtration Rate > 60, BUN/Creatinine Ratio 37, Glucose Level 123H, Calcium Level 8.1L, Corrected Calcium 9.1, Phosphorus Level 3.6, Magnesium Level 2.3, Total Bilirubin 0.9, Aspartate Amino Transf (AST/SGOT) 41H, Alanine Aminotransferase (ALT/SGPT) 77H, Alkaline Phosphatase 44, Total Protein 5.2L, Albumin 2.7L 08/23/20 03:40: Blood Gas Puncture Site LR, Blood Gas Patient Temperature 36, Arterial Blood pH 7.51H, Arterial Blood Partial Pressure CO2 41, Arterial Blood Partial Pressure O2 64L, Arterial Blood HCO3 33H, Arterial Blood Total CO2 34.3H, Arterial Blood Oxygen Saturation 94, Arterial Blood Base Excess 9.2H, Ricky Test YES-POS, Blood Gas Ventilator Setting YES, Blood Gas Inspired Oxygen 35% 08/23/20 08:32: Triglycerides Level 172H 08/23/20 09:55: Blood Gas Puncture Site RR, Blood Gas Patient Temperature 37.3, Arterial Blood pH 7.49H, Arterial Blood Partial Pressure CO2 44, Arterial Blood Partial Pressure O2 71L, Arterial Blood HCO3 33H, Arterial Blood Total CO2 34.2H, Arterial Blood Oxygen Saturation 95, Arterial Blood Base Excess 9.0H, Ricky Test N/A, Blood Gas Ventilator Setting YES, Blood Gas Inspired Oxygen 35% 08/23/20 10:53: Glucometer 106 Microbiology 08/14/20 Gram Stain - Final, Complete 08/14/20 Sputum Culture - Final, Complete Haemophilus influenza 08/14/20 Blood Culture - Final, Complete No growth A/P: Assessment: Ac resp failure due to ac exac of COPD due to pneumonia Asymptomatic sinus michael H/o hypertension, none currently Plan: * Management of ac resp failure is with the Med and Pulm services * Monitor labs and replenish electrolytes ANGIE PINA MD FACP FAC CCDS Aug 23, 2020 15:40
[2020-08-24] MEDS: inSUlin ASPART (NovoLOG) 1 UNIT/0.01 ML (CHARGE PER UNIT) SC SCH ×2 (00:39→03:47)
[2020-08-24] MEDS: D5W 1000 ML IV SOLUTION 1,000 ML IV SCH (01:50)
[2020-08-24] MEDS: CEFEPIME 1,000 MG/SWFI 10 ML IV PUSH IV SCH ×2 (02:05)
[2020-08-24] MEDS: RT-ALBUTEROL/IPRATROPIUM 3 ML (DUONEB) VIAL INH SCH ×6 (02:31→23:05)
[2020-08-24 03:17] LABS: BASOPHILS % (AUTO) 0 % (0-10); EOSINOPHILS # (AUTO) 0.1 10^3/uL (0.0-0.3); EOSINOPHILS % (AUTO) 0 % (0-10); HEMATOCRIT 36 % (40-54); HEMOGLOBIN 12.1 g/dL (13.3-17.7); LYMPHOCYTES % (AUTO) 6 % (12-44); MEAN CORPUSCULAR HEMOGLOBIN 31 pg (25-34); MEAN CORPUSCULAR HGB CONC 33 g/dL (32-36); MEAN CORPUSCULAR VOLUME 92 fL (80-99); MEAN PLATELET VOLUME 9.7 fL (9.0-12.2); MONOCYTES # (AUTO) 0.7 10^3/uL (0.0-1.0); MONOCYTES % (AUTO) 4 % (0-12); NEUTROPHILS # (AUTO) 14.1 10^3/uL (1.8-7.8); NEUTROPHILS % (AUTO) 86 % (42-75); PLATELET COUNT 232 10^3/uL (130-400); WHITE BLOOD COUNT 16.3 10^3/uL (4.3-11.0)
[2020-08-24 03:28] LABS: ALBUMIN 2.9 GM/DL (3.2-4.5); CHLORIDE 104 MMOL/L (98-107); POTASSIUM 3.8 MMOL/L (3.6-5.0); SODIUM 140 MMOL/L (135-145)
[2020-08-24 03:30] LABS: CALCIUM 8.3 MG/DL (8.5-10.1)
[2020-08-24 03:31] LABS: GLUCOSE 108 MG/DL (70-105); TOTAL PROTEIN 5.7 GM/DL (6.4-8.2)
[2020-08-24 03:32] LABS: CARBON DIOXIDE 26 MMOL/L (21-32)
[2020-08-24 03:33] LABS: BILIRUBIN,TOTAL 1.1 MG/DL (0.1-1.0)
[2020-08-24 03:34] LABS: ALKALINE PHOSPHATASE 46 U/L (40-136); PHOSPHORUS 3.1 MG/DL (2.3-4.7)
[2020-08-24 03:35] LABS: GFR ESTIMATED > 60
[2020-08-24 03:36] LABS: BUN/CREATININE RATIO 27
[2020-08-24 03:37] LABS: MAGNESIUM 2.2 MG/DL (1.6-2.4)
[2020-08-24 03:38] LABS: ALANINE AMINOTRANSFERASE 18 U/L (0-55)
[2020-08-24 03:43] LABS: BAND NEUTROPHILS 0 %; BASOPHILS % (MANUAL) 0 %; EOSINOPHILS % (MANUAL) 0 %; LYMPHOCYTES % (MANUAL) 11 %; MONOCYTES % (MANUAL) 4 %; NEUTROPHILS % (MANUAL) 85 %; RBC MORPH NORMAL
[2020-08-24] MEDS: KCL 20 MEQ TAB (K-DUR) PO SCH (03:47)
[2020-08-24] MEDS: POTASSIUM CL 10MEQ/50ML IVPB 50 ML IV SCH (03:47)
[2020-08-24] MEDS: MAGNESIUM 1 GM/100 ML IVPB 100 ML IV SCH (03:47)
[2020-08-24] MEDS: LORazepam INJ 2 MG/ML (ATIVAN) VIAL IVP PRN ×2 (05:04→21:58)
[2020-08-24] MEDS: methylPREDNISolone 40 MG/ML (Solu-MEDROL) VIAL IV SCH ×2 (05:52→18:00)
--- NOTE | 2020-08-24 07:01 | Progress Note ---
Subjective Date Seen by a Provider: Aug 24, 2020 Time Seen by a Provider: 09:00 Subjective/Events-last exam Patient still extubated Confused a bit Speech therapy evaluated him and will advance diet Risperdal 0.25 twice daily will be started for delirium Elevated white count we will monitor closely I-S used a bit Inpatient rehab or [facility] PT and OT ordered Review of Systems Pulmonary: Dyspnea Neurological: Confusion Objective Exam Last Set of Vital Signs Vital Signs Date Time Temp Pulse Resp B/P (MAP) Pulse Ox O2 Delivery O2 Flow Rate FiO2 08/24/20 06:13 94 Vapotherm 20.00 40 08/24/20 06:10 51 22 181/83 (115) 08/24/20 00:00 37.3 Capillary Refill : Less Than 3 Seconds I&O Intake and Output 08/24/20 00:00 Intake Total 750 ml Output Total 5300 ml Balance -4550 ml Intake Oral 0 ml Tube Feeding 350 ml Other 400 ml Output Urine Total 5300 ml General: Alert, Cooperative, No Acute Distress Lungs: Clear to Auscultation, Normal Air Movement, Other (Diminished breath sounds) Heart: Regular Rate Results Lab Laboratory Tests 08/23/20 08:32: Triglycerides Level 172H 08/23/20 09:55: Blood Gas Puncture Site RR, Blood Gas Patient Temperature 37.3, Arterial Blood pH 7.49H, Arterial Blood Partial Pressure CO2 44, Arterial Blood Partial Pressure O2 71L, Arterial Blood HCO3 33H, Arterial Blood Total CO2 34.2H, Arterial Blood Oxygen Saturation 95, Arterial Blood Base Excess 9.0H, Ricky Test N/A, Blood Gas Ventilator Setting YES, Blood Gas Inspired Oxygen 35% 08/23/20 10:53: Glucometer 106 08/23/20 17:59: Glucometer 75 08/24/20 03:13: White Blood Count 16.3H, Red Blood Count 3.96L, Hemoglobin 12.1L, Hematocrit 36L , Mean Corpuscular Volume 92, Mean Corpuscular Hemoglobin 31, Mean Corpuscular Hemoglobin Concent 33, Red Cell Distribution Width 13.2, Platelet Count 232, Mean Platelet Volume 9.7, Immature Granulocyte % (Auto) 3, Neutrophils (%) (Auto) 86H, Lymphocytes (%) (Auto) 6L, Monocytes (%) (Auto) 4, Eosinophils (%) (Auto) 0, Basophils (%) (Auto) 0, Neutrophils # (Auto) 14.1H, Lymphocytes # (Auto) 1.0, Monocytes # (Auto) 0.7, Eosinophils # (Auto) 0.1, Basophils # (Auto) 0.0, Immature Granulocyte # (Auto) 0.4H, Neutrophils % (Manual) 85, Lymphocytes % (Manual) 11, Monocytes % (Manual) 4, Eosinophils % (Manual) 0, Basophils % (Manual) 0, Band Neutrophils 0, Blood Morphology Comment NORMAL, Sodium Level 140, Potassium Level 3.8, Chloride Level 104, Carbon Dioxide Level 26, Anion Gap 10, Blood Urea Nitrogen 16, Creatinine 0.60, Estimat Glomerular Filtration Rate > 60, BUN/Creatinine Ratio 27, Glucose Level 108H, Calcium Level 8.3L, Corrected Calcium 9.2, Phosphorus Level 3.1, Magnesium Level 2.2, Total Bilirubin 1.1H, Aspartate Amino Transf (AST/SGOT) 38H, Alanine Aminotransferase (ALT/SGPT) 18, Alkaline Phosphatase 46, Total Protein 5.7L, Albumin 2.9L Microbiology 08/14/20 Gram Stain - Final, Complete 08/14/20 Sputum Culture - Final, Complete Haemophilus influenza 08/14/20 Blood Culture - Final, Complete No growth Assessment/Plan Assessment/Plan Assess & Plan/Chief Complaint Assessment: AECOPD causing respiratory fatigue and intubation Smoker Parkinson's Infiltrates c/w PNA empirically placed on abx Leukocytosis Plan: Vent IV abx Supportive care Complex case TF to start 08/15/2020: Vent management IV antibiotics IV steroids Sedation 08/24/2020: Speech therapy allowing advance of diet Continue Vapotherm Monitor white count Septic work-up Diagnosis/Problems Diagnosis/Problems (1) Respiratory failure (2) COPD exacerbation (3) Smoker (4) Parkinson disease RENNY BATES DO Aug 24, 2020 07:01
--- NOTE | 2020-08-24 08:23 | Diagnostic Imaging Report ---
INDICATION: Respiratory failure Portable chest 4:31 AM Right extremity PICC line tip projects over the SVC. Heart size and pulmonary vascularity are normal. There is mild interstitial prominence. There are no consolidating alveolar infiltrates. There is no pneumothorax. There are questionable tiny effusions. IMPRESSION: Interstitial thickening with questionable pleural effusions versus basilar atelectasis. No change compared with previous day. Dictated by: Dictated on workstation # [id number]
[2020-08-24] MEDS: FAMOTIDINE 20 MG (PEPCID) TABLET GT SCH ×2 (10:17→21:37)
[2020-08-24] MEDS: ENOXAPARIN 40 MG/0.4 ML (LOVENOX) SYR SC SCH (10:17)
[2020-08-24] MEDS: SINEMET CR 50/200 (CARBIDOPA/LEVODOPA SA) TAB PO SCH ×4 (10:17→21:37)
[2020-08-24] MEDS: GABAPENTIN 300 MG (NEURONTIN) CAP PO SCH ×3 (10:17→21:38)
[2020-08-24] MEDS: risperiDONE 0.25 MG (RisperDAL) TAB PO SCH ×2 (10:18→21:38)
[2020-08-24] MEDS: LACTULOSE SYRUP 10GM/15ML (ENULOSE) 30ML UDC PO SCH ×2 (10:18→21:00)
[2020-08-24] MEDS: BISACODYL 10 MG SUPP (DULCOLAX) PR SCH (10:18)
[2020-08-24] MEDS ORDERED: RT-ALBUTEROL SULF 2.5 MG/3 ML PRE-MIX VIAL IH PRN (10:45)
[2020-08-24] MEDS ORDERED: MIRTAZAPINE 15 MG (REMERON) TAB PO PRN (11:30)
--- NOTE | 2020-08-24 11:42 | Physical Therapy Evaluation ---
PT Evaluation-General Medical Diagnosis Admission Date August 13, 2020 at 23:23 Medical Diagnosis: respiratory failure Onset Date: August 13, 2020 Therapy Diagnosis Therapy Diagnosis: severe weakness/debility Precautions Precautions/Isolations: Fall Prevention, Standard Precautions Referral Physician: Génesis Reason for Referral: Evaluation/Treatment Medical History Pertinent Medical History: COPD, Parkinson's, Smoking Additional Medical History transfer from [facility] secondary to respiratory failure Current History s/p intubation x 11 days (extubated 08/23/20 and off sedation x 3 days per RN) Reviewed History: Yes Prior Prior Level of Function SCALE: Activities may be completed with or without assistive devices. 0-Yurfscvkqa-rmyegac completes the activity by him/herself with no assistance from a helper. 5-Set-up or Clean-up Assistance-helper sets up or cleans up; patient completes activity. [place] assists only prior to or following the activity. 4-Supervision or Touching Assistance-helper provides verbal cues and/or touching/steadying and/or contact guard assistance as patient completes activity. Assistance may be provided throughout the activity or intermittently. 3-Partial/Moderate Assistance-helper does LESS THAN HALF the effort. [place] lifts, holds or supports trunk or limbs, but provides less than half the effort. 2-Substantial/Maximal Assistance-helper does MORE THAN HALF the effort. [place] lifts or holds trunk or limbs and provides more than half the effort. 7-Xetmxwkao-eeadzq does ALL the effort. Patient does none of the effort to complete the activity. Or, the assistance of 2 or more helpers is required for the patient to complete the activity. If activity was not attempted, code reason: 7-Patient Refused. 9-Not Applicable-not attempted and the patient did not perform the activity before the current illness, exacerbation or injury. 10-Not Attempted due to Environmental Limitations-(lack of equipment, weather restraints, etc.). 88-Not Attempted due to Medical Conditions or Safety Concerns. Bed Mobility: 6 Transfers (B,C,W/C): 6 Gait: 6 Indoor Mobility (Ambulation): Independent per report (patient unable to answer or follow simple direction) PT Evaluation-Current Subjective Patient mumbles. Unable to follow simple direction/very lethargic. Objective Patient Orientation: Mumbles, Listless Attachments: Central Line, Oxygen (vapotherm), Diaz Catheter ROM/Strength ROM Lower Extremities bilateral LE WFL Strength Lower Extremities 2/5 grossly bilateral LE (unable to formally test due to inability to follow simple direction) Integumentary/Posture Integumentary refer to nursing notes Bowel Incontinence: Yes Bladder Incontinence: Diaz Cath Neuromuscular (Tone, Coordination, Reflexes) severely diminished coordination/low tone Sensory Vision: Unable to Assess Hearing: Functional Transfers Roll Left to Right (QC): 1 (x 2) Sit to Lying (QC): 1 (x 2) Lying to Sitting/Side of Bed(Q: 1 (x 2) Patient requires dependent assist to maintain sitting EOB with poor posture and no core stability Gait Does the Patient Walk?: No and Walking Goal IS indicated Balance Sitting Static: Poor Sitting Dynamic: Poor Assessment/Needs 70 y.o. male, will be seen by skilled PT to address functional strength and mobility. Patient is currently unable to follow simple direction and requires dependent assist of 2 for bed mobility. Rehab Potential: Guarded PT Short Term Goals Short Term Goals Time Frame: Sep 05, 2020 Roll Left & Right: 2 Sit to lyin Lying to sitting on side of be: 2 Sit to stand: 2 Chair/zkr-tc-vghuq transfer: 2 PT Mirror Framer Goals Penitentiary Goals PT Mirror Framer Goals Time Frame: Sep 26, 2020 Roll Left & Right (QC): 4 Sit to Lying (QC): 4 Lying-Sitting on Side/Bed(QC): 4 Sit to Stand (QC): 4 Chair/Eiz-zh-Xxdup Xfer(QC): 4 Toilet Transfer (QC): 4 Does the Patient Walk: Yes Walk 10 feet (QC): 4 PT Plan Problem List Problem List: Activity Tolerance, Functional Strength, Safety, Balance, Gait, Transfer, Bed Mobility Treatment/Plan Treatment Plan: Continue Plan of Care Treatment Plan: Bed Mobility, Education, Functional Activity Maame, Functional Strength, Gait, Safety, Therapeutic Exercise, Transfers Treatment Duration: Sep 26, 2020 Frequency: 6 times per week Estimated Hrs Per Day: .5 hour per day Time/GCodes Time In: 1045 Time Out: 1101 Total Billed Treatment Time: 16 Total [facility] KEREN LARA PT Aug 24, 2020 11:42
--- NOTE | 2020-08-24 11:55 | Consultation - Ortho ---
Consult - Ortho Subjective Date of Exam 08/24/20 Chief Complaint Left wrist pain and swelling HPI/Events since last exam Mr. León is a 70-year-old white male was admitted for respiratory failure. At some point he developed pain and swelling in his left wrist. I could not get much of a history from him. I think he said he [place] but could not give me a timeframe. He had an x-ray taken yesterday of his left wrist that showed a questionable fracture of his distal ulna. A wrist splint has been Applied. I had difficulty getting his history and when he did respond they had difficulty understanding him Medical, Surgical History Reviewed and no additions or changes Social History Reviewed and no additions or changes Family History Reviewed and no additions or changes Review of Systems Reviewed and no additions or changes Allergies: Coded Allergies: codeine (Verified Allergy, Unknown, 08/13/20) Home Meds Reported Medications Fluticasone/Salmeterol (Advair 250-50 Diskus) 1 Each Blst.w.dev, 1 PUFF INH BID, EA 08/14/20 Albuterol Sulfate (PROAIR HFA) 1 Puff Puff, 1 PUFF IH Q6H PRN for SHORTNESS OF BREATH, PUFF 08/14/20 Ibuprofen (Ibuprofen) 800 Mg Tablet, 800 MG PO Q8H PRN for PAIN-MILD, TAB 08/14/20 Tizanidine HCl (Tizanidine HCl) 2 Mg Tablet, 2 MG PO Q8H PRN for SPASMS, TAB 08/14/20 Mirtazapine (Mirtazapine) 15 Mg Tablet, 15 MG PO HS PRN for SLEEP, TAB 08/14/20 Lisinopril (Lisinopril) 5 Mg Tablet, 5 MG PO DAILY, TAB 08/14/20 Gabapentin (Neurontin) 300 Mg Capsule, 300 MG PO TID, CAP 08/14/20 Paroxetine HCl (Paroxetine HCl) 20 Mg Tablet, 20 MG PO DAILY, TAB 08/14/20 Lovastatin (Lovastatin) 20 Mg Tablet, 20 MG PO 1800 W/MEAL, TAB 08/14/20 Fluticasone Propionate (Flonase Allergy Relief) 9.9 Ml [place].susp, 1 SPRAY NS BID, EACH 08/14/20 Carbidopa/Levodopa (Carbidopa-Levo ER 25-100 Tab) 1 Each Tablet.er, 1 EA PO QID, TAB 08/14/20 Objective Exam Constitutional: [] HEENT: [] Neck: [] Cardiovascular: [] Respiratory: [] Gastrointestinal: [] Genitourinary: [] Skin: [] Back/Spine: [] Extremities: [Left wristminimal swelling. Pain with palpation over the distal radius and ulna. No obvious deformity. Good motion passively with minimal pain. I asked him to move his wrist and he would not move it. I asked him to extend his fingers which he would not do. He did have a weak stunt man when asked him to stunt man my fingers. He stated he had normal sensation. He has good radial pulse and good capillary refill. No instability at the distal radial ulnar j oint. Good pronation and supination of forearm. Good range of motion of elbow without pain.] Neurologic: [] Psychiatric: [] Hematologic/lymphatic/immunologic: [] Vital Signs Vital Signs Date Time Temp Pulse Resp B/P (MAP) Pulse Ox O2 Delivery O2 Flow Rate FiO2 08/24/20 11:00 54 23 158/69 (98) 89 Vapotherm 20.00 40.00 08/24/20 10:21 92 Vapotherm 20.00 40 08/24/20 10:00 55 34 166/80 (108) 92 Vapotherm 20.00 40.00 08/24/20 09:00 51 26 168/107 (127) 89 Vapotherm 20.00 40.00 08/24/20 08:00 48 30 151/135 (140) 92 Vapotherm 20.00 40.00 08/24/20 08:00 90 Vapotherm 20.00 40 08/24/20 07:56 37.1 08/24/20 07:00 53 26 169/80 (109) 93 Vapotherm 20.00 40.00 08/24/20 06:37 48 08/24/20 06:13 94 Vapotherm 20.00 40 08/24/20 06:10 51 22 181/83 (115) 94 Vapotherm 20.00 40.00 08/24/20 05:50 54 30 94 Vapotherm 20.00 40.00 08/24/20 05:00 58 38 151/81 (121) 85 Vapotherm 20.00 45.00 08/24/20 04:00 50 19 172/78 (126) 92 Vapotherm 20.00 45.00 08/24/20 04:00 93 Vapotherm 20.00 45 08/24/20 03:15 Vapotherm 20.00 45.00 08/24/20 03:00 59 14 177/75 (109) 93 Vapotherm 25.00 50.00 08/24/20 02:31 94 Vapotherm 25.00 50 08/24/20 02:00 56 21 149/76 (114) 96 Vapotherm 25.00 50.00 08/24/20 01:00 60 08/24/20 01:00 60 21 162/91 (121) 92 Vapotherm 25.00 50.00 08/24/20 00:00 37.3 08/24/20 00:00 59 10 161/87 (111) 94 Vapotherm 25.00 50.00 08/23/20 23:59 92 Vapotherm 25.00 50 08/23/20 23:00 58 19 160/90 (113) 95 Vapotherm 25.00 50.00 08/23/20 22:00 60 15 154/94 (118) 92 Vapotherm 25.00 50.00 08/23/20 21:12 93 Vapotherm 25.00 50 08/23/20 21:00 56 18 164/72 (110) 91 Vapotherm 25.00 50.00 08/23/20 20:00 93 Vapotherm 25.00 50 08/23/20 20:00 58 38 172/80 (118) 92 Vapotherm 25.00 50.00 08/23/20 19:38 37.4 08/23/20 19:27 Vapotherm 25.00 50.00 08/23/20 19:00 63 08/23/20 19:00 63 11 164/88 (117) 84 Vapotherm 25.00 50.00 08/23/20 18:11 97 Vapotherm 30.00 60 08/23/20 18:00 51 11 162/75 (104) 99 Vapotherm 35.00 60.00 08/23/20 17:00 60 19 153/82 (105) 94 Vapotherm 35.00 60.00 08/23/20 16:56 37.2 08/23/20 16:53 95 Vapotherm 35.00 60 08/23/20 16:00 55 10 170/96 (120) 93 Vapotherm 35.00 60.00 08/23/20 15:00 52 13 160/74 (102) 94 Vapotherm 35.00 60.00 08/23/20 14:31 Vapotherm 35.00 60.00 08/23/20 14:24 96 Vapotherm 30.00 80 08/23/20 14:00 55 11 157/80 (122) 95 Vapotherm 35.00 80.00 08/23/20 13:00 52 160/74 (102) 97 Vapotherm 35.00 80.00 08/23/20 12:35 59 08/23/20 12:35 94 Vapotherm 35.00 80 08/23/20 12:00 69 11 157/77 (103) 97 Vapotherm 35.00 80.00 08/23/20 11:51 37.2 I & O 08/24/20 07:00 Intake Total 160 ml Output Total 6500 ml Balance -6340 ml Lab Results Laboratory Tests 08/23/20 17:59: Glucometer 75 08/24/20 03:13: White Blood Count 16.3H, Red Blood Count 3.96L, Hemoglobin 12.1L, Hematocrit 36L , Mean Corpuscular Volume 92, Mean Corpuscular Hemoglobin 31, Mean Corpuscular Hemoglobin Concent 33, Red Cell Distribution Width 13.2, Platelet Count 232, Mean Platelet Volume 9.7, Immature Granulocyte % (Auto) 3, Neutrophils (%) (Auto) 86H, Lymphocytes (%) (Auto) 6L, Monocytes (%) (Auto) 4, Eosinophils (%) (Auto) 0, Basophils (%) (Auto) 0, Neutrophils # (Auto) 14.1H, Lymphocytes # (Auto) 1.0, Monocytes # (Auto) 0.7, Eosinophils # (Auto) 0.1, Basophils # (Auto) 0.0, Immature Granulocyte # (Auto) 0.4H, Neutrophils % (Manual) 85, Lymphocytes % (Manual) 11, Monocytes % (Manual) 4, Eosinophils % (Manual) 0, Basophils % (Manual) 0, Band Neutrophils 0, Blood Morphology Comment NORMAL, Sodium Level 14 0, Potassium Level 3.8, Chloride Level 104, Carbon Dioxide Level 26, Anion Gap 10, Blood Urea Nitrogen 16, Creatinine 0.60, Estimat Glomerular Filtration Rate > 60, BUN/Creatinine Ratio 27, Glucose Level 108H, Calcium Level 8.3L, Corrected Calcium 9.2, Phosphorus Level 3.1, Magnesium Level 2.2, Total Bilirubin 1.1H, Aspartate Amino Transf (AST/SGOT) 38H, Alanine Aminotransferase (ALT/SGPT) 18, Alkaline Phosphatase 46, Total Protein 5.7L, Albumin 2.9L Microbiology 08/14/20 Gram Stain - Final, Complete 08/14/20 Sputum Culture - Final, Complete Haemophilus influenza 08/14/20 Blood Culture - Final, Complete No growth Imaging X-rays left wristWere reviewed which shows no evidence of fracture. Assessment and Plan Assessment Left wrist pain swelling and pain Problem List Unchanged Plan Continue with wrist splint. Repeat x-rays in 2 weeks if symptoms continue Final Diagonsis Sprain left wrist/tendinitis left wrist Level of the visit: Level 3 AMOL VASQUES MD Aug 24, 2020 11:55
--- NOTE | 2020-08-24 12:57 | Pulmonary Progress Note ---
Subjective Date Seen by a Provider: Aug 24, 2020 Time Seen by a Provider: 12:57 Sepsis Event Evaluation Height, Weight, BMI Height: '" Weight: lbs. oz. kg; 25.70 BMI Method: Exam Exam Vital Signs Date Time Temp Pulse Resp B/P (MAP) Pulse Ox O2 Delivery O2 Flow Rate FiO2 08/24/20 12:00 56 19 147/75 (99) 90 Vapotherm 20.00 40.00 08/24/20 11:00 54 23 158/69 (98) 89 Vapotherm 20.00 40.00 08/24/20 10:21 92 Vapotherm 20.00 40 08/24/20 10:00 55 34 166/80 (108) 92 Vapotherm 20.00 40.00 08/24/20 09:00 51 26 168/107 (127) 89 Vapotherm 20.00 40.00 08/24/20 08:00 48 30 151/135 (140) 92 Vapotherm 20.00 40.00 08/24/20 08:00 90 Vapotherm 20.00 40 08/24/20 07:56 37.1 08/24/20 07:00 53 26 169/80 (109) 93 Vapotherm 20.00 40.00 08/24/20 06:37 48 08/24/20 06:13 94 Vapotherm 20.00 40 08/24/20 06:10 51 22 181/83 (115) 94 Vapotherm 20.00 40.00 08/24/20 05:50 54 30 94 Vapotherm 20.00 40.00 08/24/20 05:00 58 38 151/81 (121) 85 Vapotherm 20.00 45.00 08/24/20 04:00 50 19 172/78 (126) 92 Vapotherm 20.00 45.00 08/24/20 04:00 93 Vapotherm 20.00 45 08/24/20 03:15 Vapotherm 20.00 45.00 08/24/20 03:00 59 14 177/75 (109) 93 Vapotherm 25.00 50.00 08/24/20 02:31 94 Vapotherm 25.00 50 08/24/20 02:00 56 21 149/76 (114) 96 Vapotherm 25.00 50.00 08/24/20 01:00 60 08/24/20 01:00 60 21 162/91 (121) 92 Vapotherm 25.00 50.00 08/24/20 00:00 37.3 08/24/20 00:00 59 10 161/87 (111) 94 Vapotherm 25.00 50.00 08/23/20 23:59 92 Vapotherm 25.00 50 08/23/20 23:00 58 19 160/90 (113) 95 Vapotherm 25.00 50.00 08/23/20 22:00 60 15 154/94 (118) 92 Vapotherm 25.00 50.00 08/23/20 21:12 93 Vapotherm 25.00 50 08/23/20 21:00 56 18 164/72 (110) 91 Vapotherm 25.00 50.00 08/23/20 20:00 93 Vapotherm 25.00 50 08/23/20 20:00 58 38 172/80 (118) 92 Vapotherm 25.00 50.00 08/23/20 19:38 37.4 08/23/20 19:27 Vapotherm 25.00 50.00 08/23/20 19:00 63 08/23/20 19:00 63 11 164/88 (117) 84 Vapotherm 25.00 50.00 08/23/20 18:11 97 Vapotherm 30.00 60 08/23/20 18:00 51 11 162/75 (104) 99 Vapotherm 35.00 60.00 08/23/20 17:00 60 19 153/82 (105) 94 Vapotherm 35.00 60.00 08/23/20 16:56 37.2 08/23/20 16:53 95 Vapotherm 35.00 60 08/23/20 16:00 55 10 170/96 (120) 93 Vapotherm 35.00 60.00 08/23/20 15:00 52 13 160/74 (102) 94 Vapotherm 35.00 60.00 08/23/20 14:31 Vapotherm 35.00 60.00 08/23/20 14:24 96 Vapotherm 30.00 80 08/23/20 14:00 55 11 157/80 (122) 95 Vapotherm 35.00 80.00 08/23/20 13:00 52 160/74 (102) 97 Vapotherm 35.00 80.00 I & O 08/24/20 07:00 Intake Total 160 ml Output Total 6500 ml Balance -6340 ml Height & Weight Height: '" Weight: lbs. oz. kg; 25.70 BMI Method: General Appearance: No Apparent Distress, WD/WN, Chronically ill Respiratory: No Accessory Muscle Use, No Respiratory Distress, Decreased Breath Sounds Cardiovascular: Regular Rate, Rhythm Capillary Refill: Less Than 3 Seconds Gastrointestinal: normal bowel sounds, non tender, soft Extremity: No Pedal Edema Neurologic/Psychiatric: Alert, Disoriented Skin: Normal Color, Warm/Dry Results Lab Laboratory Tests 08/23/20 03:34 08/23/20 03:35 08/24/20 03:13 Assessment/Plan Assessment/Plan Available chart/ vitals / labs / Images reviewed afebrile I/O - neg 4500 Video assessment done using teleICU camera Discussed with RN Pressors: off Drips: Lines : ( right radial nicho 08/13 -out 08/19 ) R IJ cath 08/13- > PICC 08/21 additional consultants: cards Intubated: 08/13 Extubated 08/23 - to Vapotherm ECHO 08/14 - EF 55% , grd I dst dsfnc Cxr 08/20- same cxr 08/21 increased infiltrate on right A/P Acute resp failure with AECOPD/ PNA , Intubated: 08/13 - on 35 % - on appropriate abx - NEED TO decrease sedation and will try to wean off vent -08/19 - off propofol , - 08/19 resumed neurontin and parkinson meds OG -08/20 -off fentanyl for few hours , very restless , not follow commands , no improvement with toradol/tramadol - back to fentanyl gtt -08/21 - off all sedatives - follow some commands , starting prn fentanyl and try SBT - 08/23 - extubated to VApotherm 20 L 40 % - to morgan off diuresis > 5L spontaneous, still edema on exam - will follow closely without additional w/up AECOPD - nebs , titrate steroids modest dose- SM 40 q 8 - 08/20 : 40 q12 , Infection - covid neg - sputum cx + H flu ,, bl;ood cx neg - Vanco 08/13= off , cefepime 08/13 -08/24 -STILL SIGNIFICANT RLL INFILTRATE and rising WBC ( ? steroids ) - will recheck PCT - speach eval Bradycardia - sinus , seen by cardiology Confusion post extubation - 08/19 resumed neurontin and parkinson meds 08/24 added haldol by PCP - very weak - speach and PT eval Hypernatremia - improved Diaz: 08/13 OG out Nutrition: Po , need swallow eval DVT proph: lovenox 40 SUP - H2bl Plans in collaboration with bedside consultants and IM MDs. Discussed with RN to reach out if any questions or concerns A total of 30 minutes of critical care time was devoted to this patient today, required to treat and/or prevent further deterioration of critical care condition ( as above ) . Time spent included reviewing the patient chart, reviewing patient data including labs, x-rays, and tests, and discussing medical decision making, counseling and coordination of care. CORINNA WELLS MD Aug 24, 2020 12:57
--- NOTE | 2020-08-24 13:50 | ST Dysphagia Evaluation ---
Speech Evaluation-General Medical Diagnosis respiratory failure Onset Date: August 13, 2020 Therapy Diagnosis Therapy Diagnosis: Oropharyngeal Dysphagia Precautions Precautions: Aspiration Precautions/Isolations: Aspiration, Standard Precautions Referral Referring Physician: Bonita Castellon Medical History Pertinent Medical History: COPD, Parkinson's, Smoking Reviewed History: Yes Speech PLF/Current-Dysphagia Prior Level of Function Patient lived at home where he was independent for most of his daily needs. Subjective Patient was pleasant with Bedside Dysphagia Evaluation. Patient answered questions although he mumbled and his intelligibility was minimal at best. OT present to do bedside evaluation as well. Cognitive Status Patient Orientation: Person, Place, Situation, Mumbles Oral Motor Skills Dentition: Natural, Tumbled, Stained Ability to Follow Directions: Fair NPO pending BDE Oral Expression Ability: Moderate Impairment Voice Voice Phonatory-Based Quality: Breathy, Weak Voice Pitch: Normal Voice Loudness: Moderately Soft/Quiet Face Facial Symmetry: Asymmetrical Oral-Facial Assessment Oral-Facial Dentition: Normal Labial Seal Description: Normal Puff Cheeks: Normal Lingual Protrusion: Abnormal Lingual ROM: Abnormal Lingual Strength: Abnormal Pharynx Velopharyngeal Move.: Normal Volitional Dry Swallow: Yes Voluntary Cough: Yes Can Clear Throat Volitionally: Yes Productive Cough: Yes Dysphagia Evaluation Consistencies Presented: Thin Liquid, Mechanical Soft, Pureed Oral phase is within normal range of function for presented consistencies. Pharyngeal phase is within normal range of function for presented consistencies. Dietary Recommendations: Mechanical Soft Liquid Recommendations: Thin Swallowing Precautions: Alternate Liquids/Solids, Double Swallow, Decreased Bolus 1/2 Tsp, Liquids from Straw, Liquids from Spoon, Oral Supervision Staff, Small Bites and Sips, Sitting Upright 90 Degrees, Sitting 90 Degrees 30 Post Intake Dysphagia Evaluation Summary Patient is a 70 y/o man who was admitted to the ICU via ED due to emergency intubation at [facility]. He was extubated on 08/23/20 and referred today for BDE. The evaluation was completed with the OT who was completing her eval at bedside as well. The patient was raised up in his bed for safe trial intake. The patient was presented 1/2 tsp of thin liquids x2 and small sip of thin via straw without s/s of aspiration. The patient was also given 1/2 tsp puree and mechanical soft without difficulty. He does require additional time to masticate the mechanical soft due to missing, tumbled teeth. Regular consistency was not given due to his oral status. He is recommended for a Dysphagia II diet level with thin liquids. Patient will need assistance for all intake until he gets stronger. This information was written on the white board in his room as well as provided to his nurse, Linda. Barriers to Learning Patient's recent decline in medical status, age Speech-Plan Patient/Family Goals Patient/Family Goals: Patient's discharge plans are unknown at this time Treatment Plan Speech Therapy Treatment Plan: Discontinue ST Treatment Duration: Aug 24, 2020 Frequency: 1 time per week Estimated Hrs Per Day: .25 hour per day Rehab Potential: Guarded Barriers to Learning: Patient's medical status, age Pt/Family Agrees to Plan: Yes Safety Risks/Education Teaching Recipient: Patient Teaching Methods: Discussion Response to Teaching: Verbalize Understanding Education Topics Provided: Diet level and safety of oral intake Time Speech Therapy Time In: 13:30 Speech Therapy Time Out: 13:40 Total Billed Time: 10 Billed Treatment Time 1, DYSEVS, DYST BLAIRE Salgado Aug 24, 2020 13:50
--- NOTE | 2020-08-24 14:37 | Occupational Therapy Eval ---
OT Evaluation-General/PLF Medical Diagnosis Admission Date August 13, 2020 at 23:23 Medical Diagnosis: respiratory failure Onset Date: August 13, 2020 Therapy Diagnosis Therapy Diagnosis: Weakness, Decreased ADL skills Precautions Precautions/Isolations: Aspiration, Standard Precautions Weight Bear Status Weight Bearing Restriction: Weight Bearing/Tolerated Left wrist splint on for sprain. Referral Physician: Génesis Referral Reason: Activity Tolerance, Self Care, Evaluation/Treatment, Strengthening/ROM Medical History Pertinent Medical History: COPD, Parkinson's, Smoking Additional Medical History Parkinson's, PNA Current History Pt. came to ER with acute respiratory insufficiency. Rapid COVID was negative. Pt. had to be intubated on 08-14. Extubated and placed on vapotherm by 08-23-20. Pt. awoke with left wrist flaccidity. Splint applied. Ortho consulted. Fx ruled out. Reviewed History: Yes Social History Unable to get history from pt. He mumbles with conversation, but does say some words and phrases. 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 ADL-Prior Level of Function SCALE: Activities may be completed with or without assistive devices. 0-Sijhsbmmop-zwjtrvi completes the activity by him/herself with no assistance from a helper. 5-Set-up or Clean-up Assistance-helper sets up or cleans up; patient completes activity. [place] assists only prior to or following the activity. 4-Supervision or Touching Assistance-helper provides verbal cues and/or touching/steadying and/or contact guard assistance as patient completes activity. Assistance may be provided throughout the activity or intermittently. 3-Partial/Moderate Assistance-helper does LESS THAN HALF the effort. [place] lifts, holds or supports trunk or limbs, but provides less than half the effort. 2-Substantial/Maximal Assistance-helper does MORE THAN HALF the effort. [place] lifts or holds trunk or limbs and provides more than half the effort. 5-Qqncvjrzw-wrkpag does ALL the effort. Patient does none of the effort to complete the activity. Or, the assistance of 2 or more helpers is required for the patient to complete the activity. If activity was not attempted, code reason: 7-Patient Refused. 9-Not Applicable-not attempted and the patient did not perform the activity before the current illness, exacerbation or injury. 10-Not Attempted due to Environmental Limitations-(lack of equipment, weather restraints, etc.). 88-Not Attempted due to Medical Conditions or Safety Concerns. ADL PLOF Comments Unknown at this time. No family at bedside. Self Care: Unknown Functional Cognition: Unknown OT Current Status Mental Status/Objective Patient Orientation: Unable to Assess Attachments: Diaz Catheter, IV, Oxygen, Telemetry Current Pt. is able to move right hand upon command, with some spontaneous movements as well. This was at wrist and finger level only. Unable to flex elbow and bring to mouth. OT removed left wrist splint. At first, pt. unable to follow commands. However, he did complete weak grasp of OT's hand, and then did wiggle his fingers with cues. ADL-Treatment Eating (QC): 2 Pt. in bed. OT attempted conversation. Pt. alert. Makes good eye contact. Does ask for coffee. OT assesses UE, and doffs wrist splint. Completed gentle PROM within available ranges. ST came in to complete bedside swallow study. Completed co-treatment due to need of both skilled clinicians. OT elevated HOB and positioned pt. in more upright position. ST assessed pt.'s swallow with applesauce, fruit cup, and water. Pt. able to swallow appropriately, and ST made diet dysphagia II. OT continued to feed pt. applesauce and water. Attempted to have pt. hold applesauce himself. He is unable to do so, and is also unable to bring right hand to mouth to feed self. Pt. does request coffee. OT gives pt some small sips of coffee. All needs met in bed. Education OT Patient Education: Correct positioning, Modified ADL techniques, Progress toward Goal/Update tx plan, Purpose of tx/functional activities, Reviewed precautions, Rehab process Teaching Recipient: Patient Teaching Methods: Demonstration, Discussion Response to Teaching: Reinforcement Needed OT Short Term Goals Short Term Goals Time Frame: Sep 07, 2020 Eatin Oral hygiene: 3 Toileting hygiene: 3 Upper body dressin OT Cutting Table Operator First Goals Senior Care Goals Time Frame: Sep 21, 2020 Eating (QC): 4 Oral Hygiene (QC): 4 Toileting Hygiene (QC): 4 Shower/Bathe Self (QC): 4 Upper Body Dressing (QC): 5 Lower Body Dressing (QC): 4 On/Off Footwear (QC): 4 Additional Goals: 1-Demonstrate ADL Tasks, 2-Verbalize Understanding, 3- ImproveStrength/Maame 1=Demonstrate adherence to instructed precautions during ADL tasks. 2=Patient will verbalize/demonstrate understanding of assistive devices/modifications for ADL. 3=Patient will improve strength/tolerance for activity to enable patient to perform ADL's. OT Education/Plan Problem List/Assessment Assessment: Decreased Activ Tolerance, Decreased Safety Aware, Decreased UE Strength, Dependent Transfers, Impaired Bed Mobility, Impaired Cognition, Impaired Coordination, Impaired Funct Balance, Impaired I ADL's, Impaired Self- Care Skills, Restricted Funct UE ROM Discharge Recommendations Plan/Recommendations: Continue POC Therapy Discharge Recommendati: 24 Hour Supervision, Post Acute OT Comment To be determined. Treatment Plan/Plan of Care Treatment,Training & Education: Yes Patient would benefit from OT for education, treatment and training to promote independence in ADL's, mobility, safety and/or upper extremity function for ADL's. Plan of Care: ADL Retraining, Functional Mobility, UE Funct Exercise/Act Treatment Duration: Sep 21, 2020 Frequency: 5 times per week Estimated Hrs Per Day: .5 hour per day Agreement: Yes Rehab Potential: Fair Time/GCodes Start Time: 13:25 Stop Time: 13:50 Total Time Billed (hr/min): 25 Billed Treatment Time 1, EVH x 10minutes, ADL x 15minutes RAFAELA MARVIN OT Aug 24, 2020 14:37
[2020-08-24] MEDS ORDERED: MIDAZOLAM 5 MG/5 ML (VERSED) VIAL ONE (17:06)
--- NOTE | 2020-08-24 17:52 | Diagnostic Imaging Report ---
PROCEDURE: CT head wo r/o stroke. TECHNIQUE: Multiple contiguous axial images were obtained through the brain without the use of intravenous contrast. Auto Exposure Controls were utilized during the CT exam to meet ALARA standards for radiation dose reduction. INDICATION: Stroke like symptoms, neurological deficit COMPARISON: None FINDINGS: The ventricles and cortical sulci are mildly prominent, likely from generalized parenchymal volume loss. There is no midline shift or mass effect. No acute intracranial hemorrhage is seen. There is no CT evidence of acute territorial ischemia. The calvarium appears intact. There is a mucous retention cyst or polyp in the right maxillary sinus and mild mucosal thickening in the ethmoid sinuses and right frontal sinus. IMPRESSION: 1. No acute intracranial hemorrhage or CT evidence of acute territorial ischemia. Findings discussed with Sho in the ICU by Dr. Sparks, on 08/24/2020 5:43 PM. Dictated by: Dictated on workstation # [id number]
[2020-08-24] MEDS: SIMvastatin 10 MG (ZOCOR) TAB PO SCH (18:00)
[2020-08-24] MEDS ORDERED: ADVAIR HFA 115/21 MCG INHALER 8 GM IH SCH (20:00)
[2020-08-24] MEDS ORDERED: risperiDONE 0.25 MG (RisperDAL) TAB PO SCH (21:00)
[2020-08-24] MEDS: FLUTICASONE NASAL SPRAY (FLONASE) 16 GM BTL NS SCH (22:29)
[2020-08-24] MEDS: RT--FLUTICASONE/SALMETEROL 113-14 (AIRDUO RespiCLICK) IH SCH (23:00)
[2020-08-25] MEDS: RT-ALBUTEROL/IPRATROPIUM 3 ML (DUONEB) VIAL INH SCH ×6 (01:23→22:15)
[2020-08-25] MEDS: D5W 1000 ML IV SOLUTION 1,000 ML IV SCH ×2 (02:09→22:03)
[2020-08-25] MEDS: methylPREDNISolone 40 MG/ML (Solu-MEDROL) VIAL IV SCH ×2 (05:24→17:24)
[2020-08-25 06:26] LABS: BASOPHILS % (AUTO) 0 % (0-10); EOSINOPHILS # (AUTO) 0.1 10^3/uL (0.0-0.3); EOSINOPHILS % (AUTO) 1 % (0-10); HEMATOCRIT 36 % (40-54); LYMPHOCYTES # (AUTO) 1.3 10^3/uL (1.0-4.0); LYMPHOCYTES % (AUTO) 9 % (12-44); MEAN CORPUSCULAR HEMOGLOBIN 31 pg (25-34); MEAN CORPUSCULAR HGB CONC 34 g/dL (32-36); MEAN CORPUSCULAR VOLUME 92 fL (80-99); MONOCYTES # (AUTO) 0.9 10^3/uL (0.0-1.0); MONOCYTES % (AUTO) 6 % (0-12); NEUTROPHILS # (AUTO) 11.7 10^3/uL (1.8-7.8); NEUTROPHILS % (AUTO) 82 % (42-75); PLATELET COUNT 227 10^3/uL (130-400); WHITE BLOOD COUNT 14.3 10^3/uL (4.3-11.0)
[2020-08-25 06:37] LABS: ALANINE AMINOTRANSFERASE 31 U/L (0-55); ALKALINE PHOSPHATASE 46 U/L (40-136); BILIRUBIN,TOTAL 0.8 MG/DL (0.1-1.0); BUN/CREATININE RATIO 21; CALCIUM 8.4 MG/DL (8.5-10.1); CARBON DIOXIDE 29 MMOL/L (21-32); CHLORIDE 104 MMOL/L (98-107); CREATININE SERUM 0.67 MG/DL (0.60-1.30); GFR ESTIMATED > 60; GLUCOSE 119 MG/DL (70-105); POTASSIUM 3.5 MMOL/L (3.6-5.0); SODIUM 141 MMOL/L (135-145); TOTAL PROTEIN 5.4 GM/DL (6.4-8.2)
[2020-08-25] MEDS: RT--FLUTICASONE/SALMETEROL 113-14 (AIRDUO RespiCLICK) IH SCH ×2 (06:43→23:19)
[2020-08-25] MEDS: GABAPENTIN 300 MG (NEURONTIN) CAP PO SCH ×3 (08:38→20:16)
[2020-08-25] MEDS: FAMOTIDINE 20 MG (PEPCID) TABLET GT SCH ×2 (08:38→20:16)
[2020-08-25] MEDS: PARoxetine 20 MG (PAXIL) TAB PO SCH (08:38)
[2020-08-25] MEDS: SINEMET CR 50/200 (CARBIDOPA/LEVODOPA SA) TAB PO SCH ×4 (08:38→20:16)
[2020-08-25] MEDS: risperiDONE 0.25 MG (RisperDAL) TAB PO SCH ×2 (08:38→20:16)
[2020-08-25] MEDS: ENOXAPARIN 40 MG/0.4 ML (LOVENOX) SYR SC SCH (08:38)
[2020-08-25] MEDS: lisINopril 5 MG (PRINIVIL) TABLET PO SCH (08:38)
[2020-08-25] MEDS: FLUTICASONE NASAL SPRAY (FLONASE) 16 GM BTL NS SCH ×2 (08:40→20:17)
[2020-08-25] MEDS: BISACODYL 10 MG SUPP (DULCOLAX) PR SCH (08:40)
[2020-08-25] MEDS: LACTULOSE SYRUP 10GM/15ML (ENULOSE) 30ML UDC PO SCH ×2 (08:40→20:16)
--- NOTE | 2020-08-25 10:41 | Pulmonary Progress Note ---
Subjective Date Seen by a Provider: Aug 25, 2020 Time Seen by a Provider: 09:30 Subjective/Events-last exam Rounded virtually with TAVON Kraus: increased O2 need overnight, now on Vapotherm 30L/40%. Will clarify stepdown v. ICU status. Author favors ICU due to fragility, increased O2 needs. RN cony [facility] hospitalist and scientific manager. Sepsis Event Evaluation Height, Weight, BMI Height: '" Weight: lbs. oz. kg; 25.70 BMI Method: Exam Exam Vital Signs Date Time Temp Pulse Resp B/P (MAP) Pulse Ox O2 Delivery O2 Flow Rate FiO2 08/25/20 10:00 58 18 135/63 (87) 91 Vapotherm 30.00 40.00 08/25/20 09:15 94 Vapotherm 30.00 40.00 08/25/20 09:00 59 13 155/93 (113) 92 Vapotherm 30.00 50.00 08/25/20 08:50 94 Vapotherm 30.00 50.00 08/25/20 08:30 94 Vapotherm 30.00 60.00 08/25/20 08:00 37.0 08/25/20 08:00 56 10 144/57 (86) 90 Vapotherm 30.00 70.00 08/25/20 07:32 90 Vapotherm 30.00 70 08/25/20 07:00 66 25 138/73 (94) 93 Vapotherm 30.00 70.00 08/25/20 06:55 53 08/25/20 06:43 94 Vapotherm 3.00 70 08/25/20 04:14 54 11 122/70 (87) 95 Vapotherm 30.00 70.00 08/25/20 04:00 37.0 08/25/20 03:32 90 High Flow N/C 5.00 08/25/20 02:14 62 8 146/70 (95) 96 Vapotherm 30.00 70.00 08/25/20 01:42 59 23 85 Vapotherm 30.00 70.00 08/25/20 01:30 91 Vapotherm 25.00 50 08/25/20 01:23 92 Vapotherm 20.00 40 08/25/20 01:00 70 08/25/20 00:40 90 High Flow N/C 5.00 08/25/20 00:20 65 17 93 High Flow N/C 5.00 08/25/20 00:14 58 21 133/63 (86) 88 High Flow N/C 4.00 08/25/20 00:00 36.8 08/24/20 23:14 61 28 132/59 (83) 94 High Flow N/C 4.00 08/24/20 23:07 97 High Flow N/C 5.00 40 08/24/20 22:43 65 24 131/63 (85) 93 High Flow N/C 4.00 08/24/20 20:00 90 High Flow N/C 4.00 08/24/20 19:57 36.6 08/24/20 19:00 51 08/24/20 18:50 96 High Flow N/C 4.00 40 08/24/20 17:00 58 12 162/75 (104) 92 Vapotherm 20.00 40.00 08/24/20 16:00 59 17 154/79 (104) 90 Vapotherm 20.00 40.00 08/24/20 16:00 90 High Flow N/C 4.00 08/24/20 16:00 37.2 08/24/20 14:26 92 Vapotherm 20.00 40 08/24/20 13:12 37.2 08/24/20 13:00 51 18 139/69 (92) 91 Vapotherm 20.00 40.00 08/24/20 13:00 51 08/24/20 12:00 90 Vapotherm 20.00 40 08/24/20 12:00 56 19 147/75 (99) 90 Vapotherm 20.00 40.00 08/24/20 11:00 54 23 158/69 (98) 89 Vapotherm 20.00 40.00 I & O 08/25/20 07:00 Intake Total 10 ml Output Total 5950 ml Balance -5940 ml Height & Weight Height: '" Weight: lbs. oz. kg; 25.70 BMI Method: General Appearance: No Apparent Distress, WD/WN, Chronically ill Respiratory: No Accessory Muscle Use, No Respiratory Distress, Decreased Breath Sounds Cardiovascular: Regular Rate, Rhythm Capillary Refill: Less Than 3 Seconds Gastrointestinal: normal bowel sounds, non tender, soft Extremity: No Pedal Edema Neurologic/Psychiatric: Alert, Disoriented Skin: Normal Color, Warm/Dry Results Lab Laboratory Tests 08/24/20 03:13 08/25/20 06:16 HEENA GOODMAN MD Aug 25, 2020 10:41
--- NOTE | 2020-08-25 10:48 | Progress Note ---
Subjective Date Seen by a Provider: Aug 25, 2020 Time Seen by a Provider: 10:30 Subjective/Events-last exam Patient remains extubated Maintain on Vapotherm Still confused PT and OT ordered [place] awaiting insurance decision Patient a little bit more alert today Check meds and labs Review of Systems General: Fatigue Pulmonary: Dyspnea Neurological: Confusion Objective Exam Last Set of Vital Signs Vital Signs Date Time Temp Pulse Resp B/P (MAP) Pulse Ox O2 Delivery O2 Flow Rate FiO2 08/25/20 10:40 90 Vapotherm 20.00 40 08/25/20 10:00 58 18 135/63 (87) 08/25/20 08:00 37.0 Capillary Refill : Less Than 3 Seconds I&O Intake and Output 08/25/20 00:00 Intake Total 10 ml Output Total 6325 ml Balance -6315 ml IV Total 10 ml Output Urine Total 6325 ml General: Alert Lungs: Clear to Auscultation Heart: Regular Rate Psych/Mental Status: Mental Status NL Results Lab Laboratory Tests 08/25/20 06:01: Procalcitonin 0.06 08/25/20 06:16: White Blood Count 14.3H, Red Blood Count 3.89L, Hemoglobin 12.0L, Hematocrit 36L , Mean Corpuscular Volume 92, Mean Corpuscular Hemoglobin 31, Mean Corpuscular Hemoglobin Concent 34, Red Cell Distribution Width 13.2, Platelet Count 227, Mean Platelet Volume 10.0, Immature Granulocyte % (Auto) 2, Neutrophils (%) (Auto) 82H, Lymphocytes (%) (Auto) 9L, Monocytes (%) (Auto) 6, Eosinophils (%) (Auto) 1, Basophils (%) (Auto) 0, Neutrophils # (Auto) 11.7H, Lymphocytes # (Auto) 1.3, Monocytes # (Auto) 0.9, Eosinophils # (Auto) 0.1, Basophils # (Auto) 0.0, Immature Granulocyte # (Auto) 0.3H, Sodium Level 141, Potassium Level 3.5L, Chloride Level 104, Carbon Dioxide Level 29, Anion Gap 8, Blood Urea Nitrogen 14, Creatinine 0.67, Estimat Glomerular Filtration Rate > 60, BUN/Creatinine Ratio 21, Glucose Level 119H, Calcium Level 8.4L, Corrected Calcium 9.2, Total Bilirubin 0.8, Aspartate Amino Transf (AST/SGOT) 34, Alanine Aminotransferase (ALT/SGPT) 31, Alkaline Phosphatase 46, Total Protein 5.4L, Albumin 3.0L Microbiology 08/14/20 Gram Stain - Final, Complete 08/14/20 Sputum Culture - Final, Complete Haemophilus influenza 08/14/20 Blood Culture - Final, Complete No growth Assessment/Plan Assessment/Plan Assess & Plan/Chief Complaint Assessment: AECOPD causing respiratory fatigue and intubation Smoker Parkinson's Infiltrates c/w PNA empirically placed on abx Leukocytosis Plan: Vent IV abx Supportive care Complex case TF to start 08/15/2020: Vent management IV antibiotics IV steroids Sedation 08/24/2020: Speech therapy allowing advance of diet Continue Vapotherm Monitor white count Septic work-up 08/25/2020: Maintain ICU status due to labile respiratory status Monitor confusion Risperdal twice daily Diagnosis/Problems Diagnosis/Problems (1) Respiratory failure (2) COPD exacerbation (3) Smoker (4) Parkinson disease RENNY BATES DO Aug 25, 2020 10:48
--- NOTE | 2020-08-25 11:13 | Occupational Ther Daily Note ---
OT Current Status-Daily Note Subjective Pt dozing in bed. Pt woke to name. Mumbling and hard to understand. Mental Status/Objective Patient Orientation: Person Attachments: Diaz Catheter, IV, Oxygen, Telemetry ADL-Treatment Therapy Code Descriptions/Definitions Functional [place] Measure: 0=Not Assessed/NA 4=Minimal Assistance 1=Total Assistance 5=Supervision or Setup 2=Maximal Assistance 6=Modified [place] 3=Moderate Assistance 7=Complete IndependenceSCALE: Activities may be completed with or without assistive devices. 8-Lcrmzkagqd-awootho completes the activity by him/herself with no assistance from a helper. 5-Set-up or Clean-up Assistance-helper sets up or cleans up; patient completes activity. [place] assists only prior to or following the activity. 4-Supervision or Touching Assistance-helper provides verbal cues and/or touching/steadying and/or contact guard assistance as patient completes activity. Assistance may be provided throughout the activity or intermittently. 3-Partial/Moderate Assistance-helper does LESS THAN HALF the effort. [place] lifts, holds or supports trunk or limbs, but provides less than half the effort. 2-Substantial/Maximal Assistance-helper does MORE THAN HALF the effort. [place] lifts or holds trunk or limbs and provides more than half the effort. 2-Oqvculfoo-tnxath does ALL the effort. Patient does none of the effort to complete the activity. Or, the assistance of 2 or more helpers is required for the patient to complete the activity. If activity was not attempted, code reason: 7-Patient Refused. 9-Not Applicable-not attempted and the patient did not perform the activity before the current illness, exacerbation or injury. 10-Not Attempted due to Environmental Limitations-(lack of equipment, weather restraints, etc.). 88-Not Attempted due to Medical Conditions or Safety Concerns. Other Treatment Max A x2 (PT/OT) to complete supine to sit EOB. Assist x2 to scoot to EOB. Min A to SBA for sitting EOB ~8min. RODRIGUEZ bathed pt's back and hair while sitting on EOB. Pt demonstrated slight movement in L fingers. Max A x2 for EOB to supine and to adjust in bed. After therapy, pt lying in bed with call light/phone in reach. All needs met in room. OT Short Term Goals Short Term Goals Time Frame: Sep 07, 2020 Eatin Oral hygiene: 3 Toileting hygiene: 3 Upper body dressin OT Care Home Goals Summer Analyst Goals Time Frame: Sep 21, 2020 Eating (QC): 4 Oral Hygiene (QC): 4 Toileting Hygiene (QC): 4 Shower/Bathe Self (QC): 4 Upper Body Dressing (QC): 5 Lower Body Dressing (QC): 4 On/Off Footwear (QC): 4 Additional Goals: 1-Demonstrate ADL Tasks, 2-Verbalize Understanding, 3- ImproveStrength/Maame 1=Demonstrate adherence to instructed precautions during ADL tasks. 2=Patient will verbalize/demonstrate understanding of assistive devices/modifications for ADL. 3=Patient will improve strength/tolerance for activity to enable patient to perform ADL's. OT Education/Plan Problem List/Assessment Assessment: Decreased Activ Tolerance, Decreased Safety Aware, Decreased UE Strength, Dependent Transfers, Edema (L hand), Impaired Bed Mobility, Impaired Cognition, Impaired Coordination, Impaired Funct Balance, Impaired Self-Care Skills, Restricted Funct UE ROM Discharge Recommendations Plan/Recommendations: Continue POC Treatment Plan/Plan of Care Patient would benefit from OT for education, treatment and training to promote independence in ADL's, mobility, safety and/or upper extremity function for ADL's. Plan of Care: ADL Retraining, Functional Mobility, UE Funct Exercise/Act Treatment Duration: Sep 21, 2020 Frequency: 5 times per week Estimated Hrs Per Day: .5 hour per day Agreement: Yes Rehab Potential: Fair Time/GCodes Start Time: 10:15 Stop Time: 10:30 Total Time Billed (hr/min): 15 Billed Treatment Time 1 visit-FA 1 (15 min) ELENA BAKER Aug 25, 2020 11:13
--- NOTE | 2020-08-25 11:26 | Physical Therapy Daily Note ---
PT Daily Note-Current Subjective Patient more alert today. Continues to mumble and difficult to understand. Mental Status Patient Orientation: Mumbles Attachments: Oxygen (vapotherm), Diaz Catheter, IV Transfers SCALE: Activities may be completed with or without assistive devices. 4-Iqoadjlyfv-eomfmgk completes the activity by him/herself with no assistance from a helper. 5-Set-up or Clean-up Assistance-helper sets up or cleans up; patient completes activity. [place] assists only prior to or following the activity. 4-Supervision or Touching Assistance-helper provides verbal cues and/or touching/steadying and/or contact guard assistance as patient completes activity. Assistance may be provided throughout the activity or intermittently. 3-Partial/Moderate Assistance-helper does LESS THAN HALF the effort. [place] lifts, holds or supports trunk or limbs, but provides less than half the effort. 2-Substantial/Maximal Assistance-helper does MORE THAN HALF the effort. [place] lifts or holds trunk or limbs and provides more than half the effort. 0-Cobfdbzgo-cdpdma does ALL the effort. Patient does none of the effort to complete the activity. Or, the assistance of 2 or more helpers is required for the patient to complete the activity. If activity was not attempted, code reason: 7-Patient Refused. 9-Not Applicable-not attempted and the patient did not perform the activity before the current illness, exacerbation or injury. 10-Not Attempted due to Environmental Limitations-(lack of equipment, weather restraints, etc.). 88-Not Attempted due to Medical Conditions or Safety Concerns. Sit to Lying (QC): 1 (x 2) Lying to Sitting/Side of Bed(Q: 1 (x 2) Patient sat EOB x 10 minutes CGA to maintain Exercises Seated Therapy Exercises: Ankle pumps, Long arc quads Seated Reps: 8 Assessment Patient tolerates minimal activity and fatigues very quickly. Patient declined up to recliner. Patient continues to display extreme weakness. PT Short Term Goals Short Term Goals Time Frame: Sep 05, 2020 Roll Left & Right: 2 Sit to lyin Lying to sitting on side of be: 2 Sit to stand: 2 Chair/uvt-as-ysuhd transfer: 2 PT Solar Energy Systems Engineer Goals Senior Care Goals PT Solar Energy Systems Engineer Goals Time Frame: Sep 26, 2020 Roll Left & Right (QC): 4 Sit to Lying (QC): 4 Lying-Sitting on Side/Bed(QC): 4 Sit to Stand (QC): 4 Chair/Vvp-bc-Jajtj Xfer(QC): 4 Toilet Transfer (QC): 4 Does the Patient Walk: Yes Walk 10 feet (QC): 4 PT Plan Treatment/Plan Treatment Plan: Continue Plan of Care Treatment Plan: Bed Mobility, Education, Functional Activity Maame, Functional Strength, Gait, Safety, Therapeutic Exercise, Transfers Treatment Duration: Sep 26, 2020 Frequency: 6 times per week Estimated Hrs Per Day: .5 hour per day Patient and/or Family Agrees t: Yes Time/GCodes Time In: 1015 Time Out: 1030 Total Billed Treatment Time: 15 Total Billed Treatment 1 visit FA 15 min KEREN LARA PT Aug 25, 2020 11:26
[2020-08-25] MEDS: fentaNYL INJ 100 MCG/2 ML AMP IVP PRN (13:26)
[2020-08-25] MEDS: SIMvastatin 10 MG (ZOCOR) TAB PO SCH (17:24)
[2020-08-25] MEDS: LORazepam INJ 2 MG/ML (ATIVAN) VIAL IVP PRN (21:00)
[2020-08-26] MEDS: fentaNYL INJ 100 MCG/2 ML AMP IVP PRN ×3 (00:13→20:38)
[2020-08-26] MEDS: RT-ALBUTEROL/IPRATROPIUM 3 ML (DUONEB) VIAL INH SCH ×6 (02:00→22:38)
[2020-08-26 03:15] LABS: CHLORIDE 105 MMOL/L (98-107); POTASSIUM 3.7 MMOL/L (3.6-5.0); SODIUM 141 MMOL/L (135-145)
[2020-08-26 03:16] LABS: CALCIUM 8.4 MG/DL (8.5-10.1)
[2020-08-26 03:17] LABS: GLUCOSE 125 MG/DL (70-105)
[2020-08-26 03:18] LABS: CARBON DIOXIDE 25 MMOL/L (21-32)
[2020-08-26 03:21] LABS: CREATININE SERUM 0.55 MG/DL (0.60-1.30); GFR ESTIMATED > 60
[2020-08-26 03:22] LABS: BUN/CREATININE RATIO 22
[2020-08-26 03:23] LABS: MAGNESIUM 2.1 MG/DL (1.6-2.4)
[2020-08-26 03:57] LABS: BASOPHILS % (AUTO) 0 % (0-10); EOSINOPHILS % (AUTO) 0 % (0-10); HEMATOCRIT 36 % (40-54); HEMOGLOBIN 11.8 g/dL (13.3-17.7); LYMPHOCYTES # (AUTO) 1.1 10^3/uL (1.0-4.0); LYMPHOCYTES % (AUTO) 7 % (12-44); MEAN CORPUSCULAR HEMOGLOBIN 31 pg (25-34); MEAN CORPUSCULAR HGB CONC 33 g/dL (32-36); MEAN CORPUSCULAR VOLUME 94 fL (80-99); MEAN PLATELET VOLUME 10.6 fL (9.0-12.2); MONOCYTES # (AUTO) 0.9 10^3/uL (0.0-1.0); MONOCYTES % (AUTO) 6 % (0-12); NEUTROPHILS # (AUTO) 13.3 10^3/uL (1.8-7.8); NEUTROPHILS % (AUTO) 85 % (42-75); PLATELET COUNT 240 10^3/uL (130-400); WHITE BLOOD COUNT 15.5 10^3/uL (4.3-11.0)
[2020-08-26 04:11] LABS: PHOSPHORUS 3.2 MG/DL (2.3-4.7)
[2020-08-26] MEDS: methylPREDNISolone 40 MG/ML (Solu-MEDROL) VIAL IV SCH ×2 (05:32→17:47)
[2020-08-26] MEDS ORDERED: MAGNESIUM 1 GM/100 ML IVPB 100 ML IV SCH (06:00)
[2020-08-26] MEDS ORDERED: KCL 20 MEQ TAB (K-DUR) PO SCH (06:00)
[2020-08-26] MEDS ORDERED: POTASSIUM CL 10MEQ/50ML IVPB 50 ML IV SCH (06:00)
[2020-08-26] MEDS: LACTULOSE SYRUP 10GM/15ML (ENULOSE) 30ML UDC PO SCH ×2 (08:33→20:37)
[2020-08-26] MEDS: ENOXAPARIN 40 MG/0.4 ML (LOVENOX) SYR SC SCH (08:33)
[2020-08-26] MEDS: SINEMET CR 50/200 (CARBIDOPA/LEVODOPA SA) TAB PO SCH ×4 (08:34→20:37)
[2020-08-26] MEDS: risperiDONE 0.25 MG (RisperDAL) TAB PO SCH ×2 (08:34→20:37)
[2020-08-26] MEDS: lisINopril 5 MG (PRINIVIL) TABLET PO SCH (08:34)
[2020-08-26] MEDS: FAMOTIDINE 20 MG (PEPCID) TABLET GT SCH ×2 (08:34→20:37)
[2020-08-26] MEDS: PARoxetine 20 MG (PAXIL) TAB PO SCH (08:34)
[2020-08-26] MEDS: GABAPENTIN 300 MG (NEURONTIN) CAP PO SCH ×3 (08:34→20:37)
[2020-08-26] MEDS: BISACODYL 10 MG SUPP (DULCOLAX) PR SCH (08:36)
[2020-08-26] MEDS: FLUTICASONE NASAL SPRAY (FLONASE) 16 GM BTL NS SCH ×2 (08:36→20:37)
--- NOTE | 2020-08-26 09:30 | Physical Therapy Daily Note ---
PT Daily Note-Current Subjective Patient in bed pre tx, agrees to PT, says he doesn't have any pain. Appearance Patient in bed post tx with nurse call, phone, tray, bed alarm on. Mental Status Patient Orientation: Person, Confused Attachments: Oxygen, Diaz Catheter vapotherm Transfers SCALE: Activities may be completed with or without assistive devices. 2-Sjtidbedet-dhkrpfq completes the activity by him/herself with no assistance from a helper. 5-Set-up or Clean-up Assistance-helper sets up or cleans up; patient completes activity. [place] assists only prior to or following the activity. 4-Supervision or Touching Assistance-helper provides verbal cues and/or touching/steadying and/or contact guard assistance as patient completes activi ty. Assistance may be provided throughout the activity or intermittently. 3-Partial/Moderate Assistance-helper does LESS THAN HALF the effort. [place] lifts, holds or supports trunk or limbs, but provides less than half the effort. 2-Substantial/Maximal Assistance-helper does MORE THAN HALF the effort. [place] lifts or holds trunk or limbs and provides more than half the effort. 9-Icmpfxqho-yamlzi does ALL the effort. Patient does none of the effort to complete the activity. Or, the assistance of 2 or more helpers is required for the patient to complete the activity. If activity was not attempted, code reason: 7-Patient Refused. 9-Not Applicable-not attempted and the patient did not perform the activity before the current illness, exacerbation or injury. 10-Not Attempted due to Environmental Limitations-(lack of equipment, weather restraints, etc.). 88-Not Attempted due to Medical Conditions or Safety Concerns. Roll Left & Right (QC): 2 Sit to Lying (QC): 2 Lying to Sitting/Side of Bed(Q: 2 Patient was able to sit on the side of the bed for about 10 min before needing to lay back down. Initially after sitting his O2 went to 79% but came back up to 88% with deep breathing, it never got over 90%, nurse was aware of this and tried changing O2 sensors but it remained the same. Exercises Seated Therapy Exercises: Ankle pumps, Long arc quads Seated Reps: 20 Treatments bed mobility, sitting, LE exercise Assessment Current Status: Poor Progress very debilitated PT Short Term Goals Short Term Goals Time Frame: Sep 05, 2020 Roll Left & Right: 2 Sit to lyin Lying to sitting on side of be: 2 Sit to stand: 2 Chair/pya-td-ydxat transfer: 2 PT Nursing Home Goals Thoroughbred Horse Farm Manager Goals PT Thoroughbred Horse Farm Manager Goals Time Frame: Sep 26, 2020 Roll Left & Right (QC): 4 Sit to Lying (QC): 4 Lying-Sitting on Side/Bed(QC): 4 Sit to Stand (QC): 4 Chair/Okt-mz-Bnxvt Xfer(QC): 4 Toilet Transfer (QC): 4 Does the Patient Walk: Yes Walk 10 feet (QC): 4 PT Plan Problem List Problem List: Activity Tolerance, Functional Strength, Safety, Balance, Gait, Transfer, Bed Mobility, ROM Treatment/Plan Treatment Plan: Continue Plan of Care Treatment Plan: Bed Mobility, Education, Functional Activity Maame, Functional Strength, Gait, Safety, Therapeutic Exercise, Transfers Treatment Duration: Sep 26, 2020 Frequency: 6 times per week Estimated Hrs Per Day: .5 hour per day Patient and/or Family Agrees t: Yes Safety Risks/Education Patient Education: Correct Positioning, Safety Issues Teaching Recipient: Patient Teaching Methods: Demonstration, Discussion Response to Teaching: Reinforcement Needed Time/GCodes Time In: 0849 Time Out: 0904 Total Billed Treatment Time: 15 Total Billed Treatment 1 visit FA JOELLEN POP PT Aug 26, 2020 09:30
--- NOTE | 2020-08-26 11:26 | Occupational Ther Daily Note ---
OT Current Status-Daily Note Subjective Pt alert, lying in bed. Pt talking about things he can't find then states that they are finding a place for him to go. No c/o pain. Mental Status/Objective Patient Orientation: Person Attachments: Diaz Catheter, IV, Oxygen, Telemetry ADL-Treatment Therapy Code Descriptions/Definitions Functional [place] Measure: 0=Not Assessed/NA 4=Minimal Assistance 1=Total Assistance 5=Supervision or Setup 2=Maximal Assistance 6=Modified [place] 3=Moderate Assistance 7=Complete IndependenceSCALE: Activities may be completed with or without assistive devices. 7-Wufwyrgdgr-qpuyupk completes the activity by him/herself with no assistance from a helper. 5-Set-up or Clean-up Assistance-helper sets up or cleans up; patient completes activity. [place] assists only prior to or following the activity. 4-Supervision or Touching Assistance-helper provides verbal cues and/or touching/steadying and/or contact guard assistance as patient completes activity. Assistance may be provided throughout the activity or intermittently. 3-Partial/Moderate Assistance-helper does LESS THAN HALF the effort. [place] lifts, holds or supports trunk or limbs, but provides less than half the effort. 2-Substantial/Maximal Assistance-helper does MORE THAN HALF the effort. [place] lifts or holds trunk or limbs and provides more than half the effort. 6-Hfggwfjkl-djbxod does ALL the effort. Patient does none of the effort to comp lete the activity. Or, the assistance of 2 or more helpers is required for the patient to complete the activity. If activity was not attempted, code reason: 7-Patient Refused. 9-Not Applicable-not attempted and the patient did not perform the activity before the current illness, exacerbation or injury. 10-Not Attempted due to Environmental Limitations-(lack of equipment, weather restraints, etc.). 88-Not Attempted due to Medical Conditions or Safety Concerns. Other Treatment Pt able to go through full AROM with L hand though continues to be weak, 1 set 10 reps of wrist flex/ext, finger flex/ext, supination/pronation. Pt required verbal cues to stay on tasks and physical cues to continue movement. After therapy, pt lying in bed with call light/phone in reach. Safety measures in place. All needs met. OT Short Term Goals Short Term Goals Time Frame: Sep 07, 2020 Eatin Oral hygiene: 3 Toileting hygiene: 3 Upper body dressin OT Care Home Goals Care Home Goals Time Frame: Sep 21, 2020 Eating (QC): 4 Oral Hygiene (QC): 4 Toileting Hygiene (QC): 4 Shower/Bathe Self (QC): 4 Upper Body Dressing (QC): 5 Lower Body Dressing (QC): 4 On/Off Footwear (QC): 4 Additional Goals: 1-Demonstrate ADL Tasks, 2-Verbalize Understanding, 3- ImproveStrength/Maame 1=Demonstrate adherence to instructed precautions during ADL tasks. 2=Patient will verbalize/demonstrate understanding of assistive devices/m odifications for ADL. 3=Patient will improve strength/tolerance for activity to enable patient to perform ADL's. OT Education/Plan Problem List/Assessment Assessment: Decreased Activ Tolerance, Decreased Safety Aware, Decreased UE Strength, Impaired Cognition, Impaired Self-Care Skills, Restricted Funct UE ROM Discharge Recommendations Plan/Recommendations: Continue POC Treatment Plan/Plan of Care Patient would benefit from OT for education, treatment and training to promote independence in ADL's, mobility, safety and/or upper extremity function for ADL's. Plan of Care: ADL Retraining, Functional Mobility, UE Funct Exercise/Act Treatment Duration: Sep 21, 2020 Frequency: 5 times per week Estimated Hrs Per Day: .5 hour per day Agreement: Yes Rehab Potential: Fair Time/GCodes Start Time: 10:50 Stop Time: 11:04 Total Time Billed (hr/min): 14 Billed Treatment Time 1 visit-EX 1 (14 min) ELENA BAKER Aug 26, 2020 11:26
--- NOTE | 2020-08-26 11:34 | Progress Note ---
Subjective Date Seen by a Provider: Aug 26, 2020 Time Seen by a Provider: 10:00 Subjective/Events-last exam Patient doing a little better More alert and oriented Still on Risperdal twice daily Changed to ICU stepdown Awaiting [facility] decision Patient will require a slow recovery Review of Systems General: Fatigue, Malaise Pulmonary: Dyspnea, Cough Neurological: Confusion Objective Exam Last Set of Vital Signs Vital Signs Date Time Temp Pulse Resp B/P (MAP) Pulse Ox O2 Delivery O2 Flow Rate FiO2 08/26/20 10:29 93 High Flow N/C 6.00 08/26/20 10:00 59 21 143/80 (101) 08/26/20 07:42 20 08/26/20 07:40 36.0 Capillary Refill : Less Than 3 Seconds I&O Intake and Output 08/26/20 00:00 Intake Total 1515 ml Output Total 3425 ml Balance -1910 ml Intake Oral 515 ml IV Total 1000 ml Output Urine Total 3425 ml General: Alert, Cooperative, No Acute Distress, Other (Confusion) Lungs: Other (Crackles and wheezing) Heart: Regular Rate Results Lab Laboratory Tests 08/26/20 03:00: White Blood Count 15.5H, Red Blood Count 3.83L, Hemoglobin 11.8L, Hematocrit 36L , Mean Corpuscular Volume 94, Mean Corpuscular Hemoglobin 31, Mean Corpuscular Hemoglobin Concent 33, Red Cell Distribution Width 13.3, Platelet Count 240, Mean Platelet Volume 10.6, Immature Granulocyte % (Auto) 1, Neutrophils (%) (Auto) 85H, Lymphocytes (%) (Auto) 7L, Monocytes (%) (Auto) 6, Eosinophils (%) (Auto) 0, Basophils (%) (Auto) 0, Neutrophils # (Auto) 13.3H, Lymphocytes # (Auto) 1.1, Monocytes # (Auto) 0.9, Eosinophils # (Auto) 0.0, Basophils # (Auto) 0.0, Immature Granulocyte # (Auto) 0.2H, Sodium Level 141, Potassium Level 3.7, Chloride Level 105, Carbon Dioxide Level 25, Anion Gap 11, Blood Urea Nitrogen 12, Creatinine 0.55L, Estimat Glomerular Filtration Rate > 60, BUN/Creatinine Ratio 22, Glucose Level 125H, Calcium Level 8.4L, Phosphorus Level 3.2, Magnesium Level 2.1 Microbiology 08/14/20 Gram Stain - Final, Complete 08/14/20 Sputum Culture - Final, Complete Haemophilus influenza 08/14/20 Blood Culture - Final, Complete No growth Assessment/Plan Assessment/Plan Assess & Plan/Chief Complaint Assessment: AECOPD causing respiratory fatigue and intubation Smoker Parkinson's Infiltrates c/w PNA empirically placed on abx Leukocytosis Plan: Vent IV abx Supportive care Complex case TF to start 08/15/2020: Vent management IV antibiotics IV steroids Sedation 08/24/2020: Speech therapy allowing advance of diet Continue Vapotherm Monitor white count Septic work-up 08/25/2020: Maintain ICU status due to labile respiratory status Monitor confusion Risperdal twice daily 08/26/2020: Monitor closely ICU stepdown Monitor lung function Awaiting insurance approval for [facility] Diagnosis/Problems Diagnosis/Problems (1) Respiratory failure (2) COPD exacerbation (3) Smoker (4) Parkinson disease RENNY BATES DO Aug 26, 2020 11:34
--- NOTE | 2020-08-26 15:37 | Pulmonary Progress Note ---
Subjective Date Seen by a Provider: Aug 26, 2020 Time Seen by a Provider: 07:57 Sepsis Event Evaluation Height, Weight, BMI Height: '" Weight: lbs. oz. kg; 25.70 BMI Method: Exam Exam Vital Signs Date Time Temp Pulse Resp B/P (MAP) Pulse Ox O2 Delivery O2 Flow Rate FiO2 08/26/20 14:00 54 16 96 Nasal Cannula 6.00 08/26/20 13:43 57 08/26/20 13:00 57 16 145/69 (94) 95 Nasal Cannula 6.00 08/26/20 12:00 61 16 134/64 (87) 96 Nasal Cannula 6.00 08/26/20 12:00 97 Nasal Cannula 6.00 08/26/20 11:50 36.1 57 16 140/67 (91) 96 Nasal Cannula 6.00 08/26/20 10:29 93 High Flow N/C 6.00 08/26/20 10:00 59 21 143/80 (101) 88 Nasal Cannula 6.00 08/26/20 09:00 57 21 149/75 (99) 87 Vapotherm 15.00 25.00 08/26/20 08:00 48 17 143/64 (90) 99 Vapotherm 15.00 25.00 08/26/20 07:42 99 Vapotherm 15.00 20 08/26/20 07:40 36.0 08/26/20 07:35 47 08/26/20 06:00 70 15 146/71 (96) 94 Vapotherm 15.00 25.00 08/26/20 05:00 45 27 157/98 (117) 98 Vapotherm 15.00 25.00 08/26/20 04:39 Vapotherm 15.00 25.00 08/26/20 04:00 43 23 145/66 (92) 100 Vapotherm 20.00 40.00 08/26/20 03:30 36.5 08/26/20 03:25 100 Vapotherm 20.00 40 08/26/20 03:00 47 34 163/73 (103) 92 Vapotherm 20.00 40.00 08/26/20 02:00 48 25 139/59 (85) 96 Vapotherm 20.00 40.00 08/26/20 02:00 96 Vapotherm 20.00 40 08/26/20 01:00 36.8 Vapotherm 20.00 40.00 08/26/20 01:00 47 08/26/20 01:00 54 15 139/75 (96) 92 Vapotherm 20.00 40.00 08/26/20 00:00 55 26 155/98 (117) 99 Vapotherm 20.00 40.00 08/25/20 23:15 93 Vapotherm 20.00 40 08/25/20 23:00 63 17 160/74 (102) 96 Vapotherm 20.00 40.00 08/25/20 22:15 94 High Flow N/C 5.00 08/25/20 22:00 55 31 142/73 (96) 92 Vapotherm 20.00 40.00 08/25/20 21:00 62 10 138/64 (88) 93 Vapotherm 20.00 40.00 08/25/20 20:00 56 11 133/70 (91) 92 Vapotherm 20.00 40.00 08/25/20 19:20 91 Vapotherm 20.00 40 08/25/20 19:10 61 08/25/20 19:00 36.6 56 20 130/62 (84) 90 Vapotherm 20.00 40.00 08/25/20 18:20 90 High Flow N/C 5.00 08/25/20 18:00 54 31 91 Vapotherm 20.00 40.00 08/25/20 17:00 58 27 134/81 (98) 92 Vapotherm 20.00 40.00 08/25/20 16:45 Vapotherm 20.00 40.00 08/25/20 16:00 78 22 132/66 (88) 89 Vapotherm 20.00 50.00 08/25/20 16:00 91 Vapotherm 20.00 40 I & O 08/26/20 07:00 Intake Total 1765 ml Output Total 3700 ml Balance -1935 ml Height & Weight Height: '" Weight: lbs. oz. kg; 25.70 BMI Method: General Appearance: No Apparent Distress, WD/WN, Chronically ill Respiratory: No Accessory Muscle Use, No Respiratory Distress, Decreased Breath Sounds Cardiovascular: Regular Rate, Rhythm Capillary Refill: Less Than 3 Seconds Gastrointestinal: normal bowel sounds, non tender, soft Extremity: No Pedal Edema Neurologic/Psychiatric: Alert, Disoriented Skin: Normal Color, Warm/Dry Results Lab Laboratory Tests 08/25/20 06:16 08/26/20 03:00 Assessment/Plan Assessment/Plan Available chart/ vitals / labs / Images reviewed afebrile I/O - neg 2L Video assessment done using teleICU camera Discussed with RN Pressors: off Drips: Lines : ( right radial nicho 08/13 -out 08/19 ) R IJ cath 08/13- > PICC 08/21 additional consultants: drea Hospital course Intubated: 08/13 -ECHO - EF 55% , grd I dst dsfnc Extubated 08/23 - to Vapotherm 08/24- CT H neg - unequal pupils and right leg wekness Images Cxr 08/20- same cxr 08/21 increased infiltrate on right A/P Acute resp failure with AECOPD/ PNA , Intubated: 08/13- 08/23 - extubated to VApotherm 20 L 40 % -Vapotherm 15L 25% diuresis > 2L spontaneous, still edema on exam - will follow closely without additional w/up AECOPD - nebs , titrate steroids modest dose- SM 40 q 8 - 08/20 : 40 q12 , Infection - covid neg - sputum cx + H flu ,, bl;ood cx neg - Vanco 08/13= off , cefepime 08/13 -08/24 -STILL SIGNIFICANT RLL INFILTRATE and rising WBC ( ? steroids ) - PCT neg on 08/25 - speach eval Bradycardia - sinus , seen by cardiology Confusion post extubation 08/19 resumed neurontin and parkinson meds 08/24 added haldol by PCP - very weak - speach and PT eval Hypernatremia - improved Diaz: 08/13 OG out Nutrition: Po , need swallow eval DVT proph: lovenox 40 SUP - H2bl Plans in collaboration with bedside consultants and IM MDs. Discussed with RN to reach out if any questions or concerns A total of 30 minutes of critical care time was devoted to this patient today, required to treat and/or prevent further deterioration of critical care condition ( as above ) . Time spent included reviewing the patient chart, reviewing patient data including labs, x-rays, and tests, and discussing medical decision making, counseling and coordination of care. CORINNA WELLS MD Aug 26, 2020 15:37
[2020-08-26] MEDS: SIMvastatin 10 MG (ZOCOR) TAB PO SCH (17:47)
[2020-08-26] MEDS: D5W 1000 ML IV SOLUTION 1,000 ML IV SCH (17:58)
[2020-08-26] MEDS: RT--FLUTICASONE/SALMETEROL 113-14 (AIRDUO RespiCLICK) IH SCH (22:39)
[2020-08-27] MEDS: LORazepam INJ 2 MG/ML (ATIVAN) VIAL IVP PRN ×3 (00:28→21:12)
[2020-08-27] MEDS: fentaNYL INJ 100 MCG/2 ML AMP IVP PRN (01:31)
[2020-08-27] MEDS: RT-ALBUTEROL/IPRATROPIUM 3 ML (DUONEB) VIAL INH SCH ×4 (02:40→20:51)
[2020-08-27 02:55] LABS: BASOPHILS % (AUTO) 0 % (0-10); EOSINOPHILS % (AUTO) 0 % (0-10); HEMATOCRIT 35 % (40-54); HEMOGLOBIN 11.6 g/dL (13.3-17.7); LYMPHOCYTES # (AUTO) 1.1 10^3/uL (1.0-4.0); LYMPHOCYTES % (AUTO) 7 % (12-44); MEAN CORPUSCULAR HEMOGLOBIN 31 pg (25-34); MEAN CORPUSCULAR HGB CONC 33 g/dL (32-36); MEAN CORPUSCULAR VOLUME 94 fL (80-99); MONOCYTES # (AUTO) 1.1 10^3/uL (0.0-1.0); MONOCYTES % (AUTO) 7 % (0-12); NEUTROPHILS # (AUTO) 12.9 10^3/uL (1.8-7.8); NEUTROPHILS % (AUTO) 84 % (42-75); PLATELET COUNT 248 10^3/uL (130-400); WHITE BLOOD COUNT 15.3 10^3/uL (4.3-11.0)
[2020-08-27 03:20] LABS: ALBUMIN 3.1 GM/DL (3.2-4.5); CHLORIDE 104 MMOL/L (98-107); POTASSIUM 3.7 MMOL/L (3.6-5.0); SODIUM 139 MMOL/L (135-145)
[2020-08-27 03:22] LABS: CALCIUM 8.3 MG/DL (8.5-10.1)
[2020-08-27 03:23] LABS: GLUCOSE 117 MG/DL (70-105); TOTAL PROTEIN 5.6 GM/DL (6.4-8.2)
[2020-08-27 03:24] LABS: CARBON DIOXIDE 27 MMOL/L (21-32)
[2020-08-27 03:25] LABS: BILIRUBIN,TOTAL 0.8 MG/DL (0.1-1.0)
[2020-08-27 03:26] LABS: ALKALINE PHOSPHATASE 46 U/L (40-136); CREATININE SERUM 0.57 MG/DL (0.60-1.30); GFR ESTIMATED > 60
[2020-08-27 03:27] LABS: BUN/CREATININE RATIO 28
[2020-08-27 03:29] LABS: ALANINE AMINOTRANSFERASE 20 U/L (0-55); MAGNESIUM 2.1 MG/DL (1.6-2.4)
[2020-08-27] MEDS: methylPREDNISolone 40 MG/ML (Solu-MEDROL) VIAL IV SCH ×2 (05:03→17:13)
[2020-08-27] MEDS: RT--FLUTICASONE/SALMETEROL 113-14 (AIRDUO RespiCLICK) IH SCH ×2 (06:06→21:00)
[2020-08-27 06:46] VITALS: BP 144/87
[2020-08-27] MEDS: SINEMET CR 50/200 (CARBIDOPA/LEVODOPA SA) TAB PO SCH ×4 (09:22→20:19)
[2020-08-27] MEDS: GABAPENTIN 300 MG (NEURONTIN) CAP PO SCH ×3 (09:22→20:19)
[2020-08-27] MEDS: BISACODYL 10 MG SUPP (DULCOLAX) PR SCH (09:22)
[2020-08-27] MEDS: PARoxetine 20 MG (PAXIL) TAB PO SCH (09:22)
[2020-08-27] MEDS: FAMOTIDINE 20 MG (PEPCID) TABLET GT SCH ×2 (09:22→20:20)
[2020-08-27] MEDS: LACTULOSE SYRUP 10GM/15ML (ENULOSE) 30ML UDC PO SCH ×2 (09:22→20:20)
[2020-08-27] MEDS: risperiDONE 0.25 MG (RisperDAL) TAB PO SCH ×2 (09:22→20:19)
[2020-08-27] MEDS: ENOXAPARIN 40 MG/0.4 ML (LOVENOX) SYR SC SCH (09:22)
[2020-08-27] MEDS: lisINopril 5 MG (PRINIVIL) TABLET PO SCH (09:22)
[2020-08-27] MEDS: FLUTICASONE NASAL SPRAY (FLONASE) 16 GM BTL NS SCH ×2 (09:23→20:22)
--- NOTE | 2020-08-27 10:32 | Progress Note ---
Subjective Date Seen by a Provider: Aug 27, 2020 Time Seen by a Provider: 10:30 Subjective/Events-last exam Patient doing a lot better Confusion is improved Transferring to fourth floor Long recovery expected [facility] declined transfer to their facility due to no insurance approval Check meds and labs Patient working with therapy Review of Systems General: Fatigue Pulmonary: Dyspnea Neurological: Weakness, Confusion Objective Exam Last Set of Vital Signs Vital Signs Date Time Temp Pulse Resp B/P (MAP) Pulse Ox O2 Delivery O2 Flow Rate FiO2 08/27/20 08:00 36.8 08/27/20 07:20 94 Nasal Cannula 4.00 08/27/20 07:00 55 24 156/73 (100) 08/27/20 06:46 28 Capillary Refill : Less Than 3 Seconds I&O Intake and Output 08/27/20 00:00 Intake Total 2525 ml Output Total 4125 ml Balance -1600 ml Intake Oral 1525 ml IV Total 1000 ml Output Urine Total 4125 ml General: Alert, Cooperative, Other (Somewhat oriented) Lungs: Other (Crackles) Heart: Regular Rate Abdomen: Normal Bowel Sounds Results Lab Laboratory Tests 08/27/20 02:48: White Blood Count 15.3H, Red Blood Count 3.74L, Hemoglobin 11.6L, Hematocrit 35L , Mean Corpuscular Volume 94, Mean Corpuscular Hemoglobin 31, Mean Corpuscular Hemoglobin Concent 33, Red Cell Distribution Width 13.3, Platelet Count 248, Mean Platelet Volume 10.0, Immature Granulocyte % (Auto) 1, Neutrophils (%) (Auto) 84H, Lymphocytes (%) (Auto) 7L, Monocytes (%) (Auto) 7, Eosinophils (%) (Auto) 0, Basophils (%) (Auto) 0, Neutrophils # (Auto) 12.9H, Lymphocytes # (Auto) 1.1, Monocytes # (Auto) 1.1H, Eosinophils # (Auto) 0.0, Basophils # (Auto) 0.0, Immature Granulocyte # (Auto) 0.2H, Sodium Level 139, Potassium Level 3.7, Chloride Level 104, Carbon Dioxide Level 27, Anion Gap 8, Blood Urea Nitrogen 16, Creatinine 0.57L, Estimat Glomerular Filtration Rate > 60, BUN/Cre atinine Ratio 28, Glucose Level 117H, Calcium Level 8.3L, Corrected Calcium 9.0, Magnesium Level 2.1, Total Bilirubin 0.8, Aspartate Amino Transf (AST/SGOT) 19, Alanine Aminotransferase (ALT/SGPT) 20, Alkaline Phosphatase 46, Total Protein 5.6L, Albumin 3.1L Microbiology 08/14/20 Gram Stain - Final, Complete 08/14/20 Sputum Culture - Final, Complete Haemophilus influenza 08/14/20 Blood Culture - Final, Complete No growth Assessment/Plan Assessment/Plan Assess & Plan/Chief Complaint Assessment: AECOPD causing respiratory fatigue and intubation Smoker Parkinson's Infiltrates c/w PNA empirically placed on abx Leukocytosis Plan: Vent IV abx Supportive care Complex case TF to start 08/15/2020: Vent management IV antibiotics IV steroids Sedation 08/24/2020: Speech therapy allowing advance of diet Continue Vapotherm Monitor white count Septic work-up 08/25/2020: Maintain ICU status due to labile respiratory status Monitor confusion Risperdal twice daily 08/26/2020: Monitor closely ICU stepdown Monitor lung function Awaiting insurance approval for [facility] 08/27/2020: Insurance denied [facility] Moved to fourth floor Inpatient rehab candidate PT and OT Diagnosis/Problems Diagnosis/Problems (1) Respiratory failure (2) COPD exacerbation (3) Smoker (4) Parkinson disease RENNY BATES DO Aug 27, 2020 10:32
--- NOTE | 2020-08-27 11:18 | Physical Therapy Daily Note ---
PT Daily Note-Current Subjective Patient continues to have some confusion. Does agree to PT. Pain Numeric Pain Scale: 5-Moderate Pain Location: Left Location Body Site: Ankle Comment: FLACC Mental Status Patient Orientation: Confused Attachments: Oxygen, Diaz Catheter, IV Transfers SCALE: Activities may be completed with or without assistive devices. 3-Deawnfkemz-kixutfr completes the activity by him/herself with no assistance from a helper. 5-Set-up or Clean-up Assistance-helper sets up or cleans up; patient completes activity. [place] assists only prior to or following the activity. 4-Supervision or Touching Assistance-helper provides verbal cues and/or touching/steadying and/or contact guard assistance as patient completes activity. Assistance may be provided throughout the activity or intermittently. 3-Partial/Moderate Assistance-helper does LESS THAN HALF the effort. [place] lifts, holds or supports trunk or limbs, but provides less than half the effort. 2-Substantial/Maximal Assistance-helper does MORE THAN HALF the effort. [place] lifts or holds trunk or limbs and provides more than half the effort. 0-Fhdvlbcmz-ueflpr does ALL the effort. Patient does none of the effort to complete the activity. Or, the assistance of 2 or more helpers is required for the patient to complete the activity. If activity was not attempted, code reason: 7-Patient Refused. 9-Not Applicable-not attempted and the patient did not perform the activity before the current illness, exacerbation or injury. 10-Not Attempted due to Environmental Limitations-(lack of equipment, weather restraints, etc.). 88-Not Attempted due to Medical Conditions or Safety Concerns. Lying to Sitting/Side of Bed(Q: 4 (SBA) Sit to Stand (QC): 3 (sit to stand x 4 sets with VC's for hand placement on armrests to perform safely) Chair/Vqm-vj-Ekble Xfer(QC): 3 Gait Training Does the Patient Walk?: Yes Distance: 10' x 2 Walk 10 feet (QC): 3 Walk 50 ft with 2 Turns(QC): 88 Walk 150 ft (QC): 88 Gait Assistive Device: FWW difficulty with placing left hand on FWW due to weakness and brace/shuffle gait sequence Exercises Seated Therapy Exercises: Ankle pumps, Long arc quads Seated Reps: 12 Assessment Patient is up in recliner with chair alarm and live sitter present. Physician notified of patient c/o left ankle pain with noted discoloration. PT to increase activity as tolerated by patient. PT Short Term Goals Short Term Goals Time Frame: Sep 05, 2020 Roll Left & Right: 2 Sit to lyin Lying to sitting on side of be: 2 Sit to stand: 2 Chair/sng-qm-ajbyj transfer: 2 PT [employer] We[employer] Crewmember Goals [employer] Crewmember Goals PT Half-Way Goals Time Frame: Sep 26, 2020 Roll Left & Right (QC): 4 Sit to Lying (QC): 4 Lying-Sitting on Side/Bed(QC): 4 Sit to Stand (QC): 4 Chair/Hdh-oc-Dujqv Xfer(QC): 4 Toilet Transfer (QC): 4 Does the Patient Walk: Yes Walk 10 feet (QC): 4 PT Plan Treatment/Plan Treatment Plan: Continue Plan of Care Treatment Plan: Bed Mobility, Education, Functional Activity Maame, Functional Strength, Gait, Safety, Therapeutic Exercise, Transfers Treatment Duration: Sep 26, 2020 Frequency: 6 times per week Estimated Hrs Per Day: .5 hour per day Patient and/or Family Agrees t: Yes Time/GCodes Time In: 1035 Time Out: 1058 Total Billed Treatment Time: 23 Total Billed Treatment 1 visit FA x 2 23 min KEREN LARA PT Aug 27, 2020 11:18
--- NOTE | 2020-08-27 11:35 | Occupational Ther Daily Note ---
OT Current Status-Daily Note Subjective Pt alert, lying in bed. Pt confused. Nrsg in room. Mental Status/Objective Patient Orientation: Person Attachments: IV, Oxygen, Telemetry ADL-Treatment Nrsg had placed pt on bedpan and required dependent care for toileting. Pt has good AROM with L hand. Breakfast tray at bedside. Set up and had pt attempt to feed self. Pt unable to hold utensil, RODRIGUEZ built up handle and pt lightly grasped utensil though unable to manipulate in hand and unable to scoop food. When utensil placed in hand with food already on spoon, pt attempted to bring to mouth, unable to bring fully to mouth and required hand over hand to place spoon in mouth. Pt required assist to set up and assist to feed. Nrsg in room after session, assisting pt to eat. Call light/phone in reach. All needs met in room. Therapy Code Descriptions/Definitions Functional [place] Measure: 0=Not Assessed/NA 4=Minimal Assistance 1=Total Assistance 5=Supervision or Setup 2=Maximal Assistance 6=Modified [place] 3=Moderate Assistance 7=Complete IndependenceSCALE: Activities may be completed with or without assistive devices. 4-Gmkkhzdwtr-tkyftzf completes the activity by him/herself with no assistance from a helper. 5-Set-up or Clean-up Assistance-helper sets up or cleans up; patient completes activity. [place] assists only prior to or following the activity. 4-Supervision or Touching Assistance-helper provides verbal cues and/or touching/steadying and/or contact guard assistance as patient completes activity. Assistance may be provided throughout the activity or intermittently. 3-Partial/Moderate Assistance-helper does LESS THAN HALF the effort. [place] lifts, holds or supports trunk or limbs, but provides less than half the effort. 2-Substantial/Maximal Assistance-helper does MORE THAN HALF the effort. [place] lifts or holds trunk or limbs and provides more than half the effort. 0-Xxppwpjyj-cbizes does ALL the effort. Patient does none of the effort to complete the activity. Or, the assistance of 2 or more helpers is required for the patient to complete the activity. If activity was not attempted, code reason: 7-Patient Refused. 9-Not Applicable-not attempted and the patient did not perform the activity before the current illness, exacerbation or injury. 10-Not Attempted due to Environmental Limitations-(lack of equipment, weather restraints, etc.). 88-Not Attempted due to Medical Conditions or Safety Concerns. Eating (QC): 1 OT Short Term Goals Short Term Goals Time Frame: Sep 07, 2020 Eatin Oral hygiene: 3 Toileting hygiene: 3 Upper body dressin OT Alf Goals [place] Out Goals Time Frame: Sep 21, 2020 Eating (QC): 4 Oral Hygiene (QC): 4 Toileting Hygiene (QC): 4 Shower/Bathe Self (QC): 4 Upper Body Dressing (QC): 5 Lower Body Dressing (QC): 4 On/Off Footwear (QC): 4 Additional Goals: 1-Demonstrate ADL Tasks, 2-Verbalize Understanding, 3- ImproveStrength/Maame 1=Demonstrate adherence to instructed precautions during ADL tasks. 2=Patient will verbalize/demonstrate understanding of assistive devices/modifications for ADL. 3=Patient will improve strength/tolerance for activity to enable patient to perform ADL's. OT Education/Plan Problem List/Assessment Assessment: Decreased Activ Tolerance, Decreased Safety Aware, Decreased UE Strength, Impaired Cognition, Impaired Self-Care Skills Discharge Recommendations Plan/Recommendations: Continue POC Treatment Plan/Plan of Care Patient would benefit from OT for education, treatment and training to promote independence in ADL's, mobility, safety and/or upper extremity function for ADL's. Plan of Care: ADL Retraining, Functional Mobility, UE Funct Exercise/Act Treatment Duration: Sep 21, 2020 Frequency: 5 times per week Estimated Hrs Per Day: .5 hour per day Agreement: Yes Rehab Potential: Fair Time/GCodes Start Time: 08:40 Stop Time: 08:55 Total Time Billed (hr/min): 15 Billed Treatment Time 1 visit-ADL 1 (15 min) ELENA BAKER Aug 27, 2020 11:35
--- NOTE | 2020-08-27 12:34 | Diagnostic Imaging Report ---
Bilateral ankles at 11:34 AM INDICATION: Fell, ankle pain. Two views of each ankle joint were obtained. There are no prior studies available for comparison. There is no fracture, dislocation or acute bony abnormality evident. The ankle mortises are not widened and the talar domes are smooth. There may be mild soft tissue edema about the left ankle joint. There is also mild soft tissue edema over the lateral malleolus on the right. IMPRESSION: There is no evidence for an acute bony abnormality of either ankle joint. Dictated by: Dictated on workstation # [id number]
[2020-08-27] MEDS ORDERED: ACETAMINOPHEN 650 MG SUPP (TYLENOL) PR PRN (13:45)
[2020-08-27] MEDS: SIMvastatin 10 MG (ZOCOR) TAB PO SCH (17:13)
[2020-08-27] MEDS: D5W 1000 ML IV SOLUTION 1,000 ML IV SCH (20:27)
[2020-08-28] MEDS: RT-ALBUTEROL/IPRATROPIUM 3 ML (DUONEB) VIAL INH SCH ×4 (02:36→21:47)
[2020-08-28] MEDS: methylPREDNISolone 40 MG/ML (Solu-MEDROL) VIAL IV SCH ×2 (05:21→17:49)
[2020-08-28 06:06] LABS: BASOPHILS % (AUTO) 0 % (0-10); EOSINOPHILS % (AUTO) 0 % (0-10); HEMATOCRIT 36 % (40-54); HEMOGLOBIN 11.8 g/dL (13.3-17.7); LYMPHOCYTES % (AUTO) 16 % (12-44); MEAN CORPUSCULAR HEMOGLOBIN 31 pg (25-34); MEAN CORPUSCULAR HGB CONC 33 g/dL (32-36); MEAN CORPUSCULAR VOLUME 93 fL (80-99); MEAN PLATELET VOLUME 9.9 fL (9.0-12.2); MONOCYTES # (AUTO) 1.1 10^3/uL (0.0-1.0); MONOCYTES % (AUTO) 8 % (0-12); NEUTROPHILS # (AUTO) 9.8 10^3/uL (1.8-7.8); NEUTROPHILS % (AUTO) 75 % (42-75); PLATELET COUNT 251 10^3/uL (130-400); WHITE BLOOD COUNT 13.1 10^3/uL (4.3-11.0)
--- NOTE | 2020-08-28 06:15 | Progress Note ---
Subjective Date Seen by a Provider: Aug 28, 2020 Time Seen by a Provider: 11:00 Subjective/Events-last exam Patient doing pretty well Less confusion Voiding well since catheter removed Reviewed meds and labs Working with therapy Requires a sitter still Review of Systems General: Fatigue, Malaise Pulmonary: Dyspnea Neurological: Confusion Objective Exam Last Set of Vital Signs Vital Signs Date Time Temp Pulse Resp B/P (MAP) Pulse Ox O2 Delivery O2 Flow Rate FiO2 08/28/20 04:00 36.5 42 20 159/72 (101) 97 High Flow N/C 1.00 08/27/20 06:46 28 Capillary Refill : Less Than 3 Seconds I&O Intake and Output 08/27/20 23:59 Intake Total 1000 ml Output Total 3750 ml Balance -2750 ml Intake Oral 1000 ml Output Urine Total 3750 ml # Bowel Movements 1 General: Alert, Oriented X3 (Less confusion but poor recall), Cooperative, No Acute Distress Lungs: Clear to Auscultation, Normal Air Movement Heart: Regular Rate Neuro: Strength at 5/5 X4 Ext Results Lab Laboratory Tests 08/28/20 06:00: White Blood Count 13.1H, Red Blood Count 3.85L, Hemoglobin 11.8L, Hematocrit 36L , Mean Corpuscular Volume 93, Mean Corpuscular Hemoglobin 31, Mean Corpuscular Hemoglobin Concent 33, Red Cell Distribution Width 13.2, Platelet Count 251, Mean Platelet Volume 9.9, Immature Granulocyte % (Auto) 1, Neutrophils (%) (Auto) 75, Lymphocytes (%) (Auto) 16, Monocytes (%) (Auto) 8, Eosinophils (%) (Auto) 0, Basophils (%) (Auto) 0, Neutrophils # (Auto) 9.8H, Lymphocytes # (Auto) 2.0, Monocytes # (Auto) 1.1H, Eosinophils # (Auto) 0.0, Basophils # (Auto) 0.0, Immature Granulocyte # (Auto) 0.2H Microbiology 08/14/20 Gram Stain - Final, Complete 08/14/20 Sputum Culture - Final, Complete Haemophilus influenza 08/14/20 Blood Culture - Final, Complete No growth Assessment/Plan Assessment/Plan Assess & Plan/Chief Complaint Assessment: AECOPD causing respiratory fatigue and intubation Smoker Parkinson's Infiltrates c/w PNA empirically placed on abx Leukocytosis Plan: Vent IV abx Supportive care Complex case TF to start 08/15/2020: Vent management IV antibiotics IV steroids Sedation 08/24/2020: Speech therapy allowing advance of diet Continue Vapotherm Monitor white count Septic work-up 08/25/2020: Maintain ICU status due to labile respiratory status Monitor confusion Risperdal twice daily 08/26/2020: Monitor closely ICU stepdown Monitor lung function Awaiting insurance approval for [place] 08/27/2020: Insurance denied [place] Moved to fourth floor Inpatient rehab candidate PT and OT 08/28/2020: Monitor closely PT and OT Inpatient rehab eval Diagnosis/Problems Diagnosis/Problems (1) Respiratory failure (2) COPD exacerbation (3) Smoker (4) Parkinson disease RENNY BATES DO Aug 28, 2020 06:15
[2020-08-28 06:17] LABS: ALBUMIN 3.1 GM/DL (3.2-4.5); CHLORIDE 104 MMOL/L (98-107); POTASSIUM 3.6 MMOL/L (3.6-5.0); SODIUM 140 MMOL/L (135-145)
[2020-08-28 06:18] LABS: CALCIUM 8.5 MG/DL (8.5-10.1)
[2020-08-28 06:19] LABS: GLUCOSE 104 MG/DL (70-105); TOTAL PROTEIN 5.6 GM/DL (6.4-8.2)
[2020-08-28 06:20] LABS: CARBON DIOXIDE 26 MMOL/L (21-32)
[2020-08-28 06:21] LABS: BILIRUBIN,TOTAL 0.8 MG/DL (0.1-1.0)
[2020-08-28 06:23] LABS: ALKALINE PHOSPHATASE 45 U/L (40-136); CREATININE SERUM 0.56 MG/DL (0.60-1.30); GFR ESTIMATED > 60
[2020-08-28 06:24] LABS: BUN/CREATININE RATIO 27
[2020-08-28 06:26] LABS: ALANINE AMINOTRANSFERASE 18 U/L (0-55)
[2020-08-28] MEDS: risperiDONE 0.25 MG (RisperDAL) TAB PO SCH ×2 (08:12→20:39)
[2020-08-28] MEDS: FAMOTIDINE 20 MG (PEPCID) TABLET GT SCH ×2 (08:12→20:39)
[2020-08-28] MEDS: GABAPENTIN 300 MG (NEURONTIN) CAP PO SCH ×3 (08:13→20:39)
[2020-08-28] MEDS: ENOXAPARIN 40 MG/0.4 ML (LOVENOX) SYR SC SCH (08:13)
[2020-08-28] MEDS: BISACODYL 10 MG SUPP (DULCOLAX) PR SCH (08:13)
[2020-08-28] MEDS: lisINopril 5 MG (PRINIVIL) TABLET PO SCH (08:13)
[2020-08-28] MEDS: FLUTICASONE NASAL SPRAY (FLONASE) 16 GM BTL NS SCH ×2 (08:13→20:40)
[2020-08-28] MEDS: PARoxetine 20 MG (PAXIL) TAB PO SCH (08:13)
[2020-08-28] MEDS: LACTULOSE SYRUP 10GM/15ML (ENULOSE) 30ML UDC PO SCH ×2 (08:13→20:39)
[2020-08-28] MEDS: SINEMET CR 50/200 (CARBIDOPA/LEVODOPA SA) TAB PO SCH ×4 (08:15→20:40)
[2020-08-28] MEDS: RT--FLUTICASONE/SALMETEROL 113-14 (AIRDUO RespiCLICK) IH SCH ×2 (08:16→21:47)
--- NOTE | 2020-08-28 10:05 | Physical Therapy Daily Note ---
PT Daily Note-Current Subjective Patient agrees to PT. More alert and talkative today. Mental Status Patient Orientation: Person Attachments: Oxygen Transfers SCALE: Activities may be completed with or without assistive devices. 5-Ohwickpsgj-wnzhvxf completes the activity by him/herself with no assistance from a helper. 5-Set-up or Clean-up Assistance-helper sets up or cleans up; patient completes activity. [place] assists only prior to or following the activity. 4-Supervision or Touching Assistance-helper provides verbal cues and/or touching/steadying and/or contact guard assistance as patient completes activity. Assistance may be provided throughout the activity or intermittently. 3-Partial/Moderate Assistance-helper does LESS THAN HALF the effort. [place] lifts, holds or supports trunk or limbs, but provides less than half the effort. 2-Substantial/Maximal Assistance-helper does MORE THAN HALF the effort. [place] lifts or holds trunk or limbs and provides more than half the effort. 5-Sfxwsemuo-ovyjmq does ALL the effort. Patient does none of the effort to complete the activity. Or, the assistance of 2 or more helpers is required for the patient to complete the activity. If activity was not attempted, code reason: 7-Patient Refused. 9-Not Applicable-not attempted and the patient did not perform the activity before the current illness, exacerbation or injury. 10-Not Attempted due to Environmental Limitations-(lack of equipment, weather restraints, etc.). 88-Not Attempted due to Medical Conditions or Safety Concerns. Sit to Stand (QC): 3 Chair/Nra-bb-Ujccd Xfer(QC): 2 (fatigues with activity requiring more assistance) Gait Training Does the Patient Walk?: Yes Distance: 50' Walk 10 feet (QC): 2 Walk 50 ft with 2 Turns(QC): 2 Walk 150 ft (QC): 88 Gait Assistive Device: FWW trunk flexed posture/NBOS/difficulty negotiating FWW Assessment Patient fatigues with minimal activity but is improving with gross motor skills. Patient transferred to shower and left in nursing care. PT Short Term Goals Short Term Goals Time Frame: Sep 05, 2020 Roll Left & Right: 2 Sit to lyin Lying to sitting on side of be: 2 Sit to stand: 2 Chair/bxz-bp-zxaha transfer: 2 PT Foil Stamp Operator Goals Foil Stamp Operator Goals PT Foil Stamp Operator Goals Time Frame: Sep 26, 2020 Roll Left & Right (QC): 4 Sit to Lying (QC): 4 Lying-Sitting on Side/Bed(QC): 4 Sit to Stand (QC): 4 Chair/Acu-gy-Xzykf Xfer(QC): 4 Toilet Transfer (QC): 4 Does the Patient Walk: Yes Walk 10 feet (QC): 4 PT Plan Treatment/Plan Treatment Plan: Continue Plan of Care Treatment Plan: Bed Mobility, Education, Functional Activity Maame, Functional Strength, Gait, Safety, Therapeutic Exercise, Transfers Treatment Duration: Sep 26, 2020 Frequency: 6 times per week Estimated Hrs Per Day: .5 hour per day Patient and/or Family Agrees t: Yes Time/GCodes Time In: 932 Time Out: 944 Total Billed Treatment Time: 12 Total Billed Treatment 1 visit GT 12 min KEREN LARA PT Aug 28, 2020 10:05
--- NOTE | 2020-08-28 11:58 | Occupational Ther Daily Note ---
OT Current Status-Daily Note Subjective Pt alert, oriented to person this date. Agrees to tx, does not c/o pain. Pt mumbles through session, most words audible. JANA STATES PT HAS L FX, THEREFORE, BRACE DONNED DUE TO FX. Mental Status/Objective Patient Orientation: Person ADL-Treatment Therapy Code Descriptions/Definitions Functional [place] Measure: 0=Not Assessed/NA 4=Minimal Assistance 1=Total Assistance 5=Supervision or Setup 2=Maximal Assistance 6=Modified [place] 3=Moderate Assistance 7=Complete IndependenceSCALE: Activities may be completed with or without assistive devices. 4-Iovqsjawke-hfcyejs completes the activity by him/herself with no assistance from a helper. 5-Set-up or Clean-up Assistance-helper sets up or cleans up; patient completes activity. [place] assists only prior to or following the activity. 4-Supervision or Touching Assistance-helper provides verbal cues and/or touching/steadying and/or contact guard assistance as patient completes activity. Assistance may be provided throughout the activity or intermittently. 3-Partial/Moderate Assistance-helper does LESS THAN HALF the effort. [place] lifts, holds or supports trunk or limbs, but provides less than half the effort. 2-Substantial/Maximal Assistance-helper does MORE THAN HALF the effort. [place] lifts or holds trunk or limbs and provides more than half the effort. 6-Qyxrjovin-amwhpd does ALL the effort. Patient does none of the effort to complete the activity. Or, the assistance of 2 or more helpers is required for the patient to complete the activity. If activity was not attempted, code reason: 7-Patient Refused. 9-Not Applicable-not attempted and the patient did not perform the activity before the current illness, exacerbation or injury. 10-Not Attempted due to Environmental Limitations-(lack of equipment, weather restraints, etc.). 88-Not Attempted due to Medical Conditions or Safety Concerns. Eating (QC): 5 (Pt educated on universal cuff for oral care and self feeding. Pt completes scooping with s/u and SBA) Other Treatment Pt completes feeding task with use of universal cuff to R hand. planning aide watches/ education provided. Pt's wrist ranged and L wrist brace doffed. Pt's MMT assessed: 4/5 wrist flexion/ extension. Pt's nurse aide educated that L wrist brace can be doffed due to decreased flaccidity. However, assistant chief nursing officer believes donned due to fx. According to notes, fx ruled out. Dr. Capps found/ OT questions brace- Jana clears message with brace donned due to fx. In this case, pt and assistant chief nursing officer educated to keep wear and only doff for wrist ROM. Pt left in recliner with L wrist brace donned, all needs met, call light in reach, pt utilizing R universal cuff for feeding in sit/ with lunch tray. Education OT Patient Education: Correct positioning, Modified ADL techniques, Progress toward Goal/Update tx plan, Purpose of tx/functional activities, Safety issues, Use of adapted equipment Teaching Recipient: Patient Teaching Methods: Demonstration, Discussion Response to Teaching: Verbalize Understanding, Return Demonstration OT Short Term Goals Short Term Goals Time Frame: Sep 07, 2020 Eatin Oral hygiene: 3 Toileting hygiene: 3 Upper body dressin OT Correction Goals [employer] Goals Time Frame: Sep 21, 2020 Eating (QC): 4 Oral Hygiene (QC): 4 Toileting Hygiene (QC): 4 Shower/Bathe Self (QC): 4 Upper Body Dressing (QC): 5 Lower Body Dressing (QC): 4 On/Off Footwear (QC): 4 Additional Goals: 1-Demonstrate ADL Tasks, 2-Verbalize Understanding, 3- ImproveStrength/Maame 1=Demonstrate adherence to instructed precautions during ADL tasks. 2=Patient will verbalize/demonstrate understanding of assistive devices/modifications for ADL. 3=Patient will improve strength/tolerance for activity to enable patient to perform ADL's. OT Education/Plan Problem List/Assessment Assessment: Decreased Activ Tolerance, Decreased UE Strength, Dependent Transfers Discharge Recommendations Plan/Recommendations: Continue POC Therapy Discharge Recommendati: Home & Family, Post Acute OT Treatment Plan/Plan of Care Treatment,Training & Education: Yes Patient would benefit from OT for education, treatment and training to promote independence in ADL's, mobility, safety and/or upper extremity function for ADL's. Plan of Care: ADL Retraining, Functional Mobility, UE Funct Exercise/Act Treatment Duration: Sep 21, 2020 Frequency: 5 times per week Estimated Hrs Per Day: .5 hour per day Agreement: Yes Rehab Potential: Fair Time/GCodes Start Time: 11:15 Stop Time: 11:36 Total Time Billed (hr/min): 21 Billed Treatment Time 1, ADL (21) BENJY LOGAN OTR Aug 28, 2020 11:58
[2020-08-28] MEDS: D5W 1000 ML IV SOLUTION 1,000 ML IV SCH (16:52)
[2020-08-28] MEDS: SIMvastatin 10 MG (ZOCOR) TAB PO SCH (17:49)
[2020-08-29] MEDS: RT-ALBUTEROL/IPRATROPIUM 3 ML (DUONEB) VIAL INH SCH ×3 (01:49→20:08)
[2020-08-29] MEDS: methylPREDNISolone 40 MG/ML (Solu-MEDROL) VIAL IV SCH ×2 (06:13→17:05)
--- NOTE | 2020-08-29 06:31 | Progress Note - Hospitalist ---
Subjective HPI/CC On Admission Date Seen by Provider: Aug 29, 2020 Time Seen by Provider: 11:45 CC: Respiratory failure from AECOPD HPI: This is a 70yoWM clinic Pt of Dr. Dave who has a PMH of COPD and Parkinsons, he underwent emergency intubation due to rapid decline in status while at [place] [facility] to ICU admission. Central line is functioning well, procalcitonin at 0.87, IV steroids maintained, OG tube is placed and will start tube feedings today. Cefepime and Vancomycin maintained and sputum on preliminary culture at [facility] [place] shows Gram + Cocci. Subjective/Events-last exam Patient doing a lot better Denies any new pain Confusion is clearing Updated his Melissa Review of Systems Pulmonary: Dyspnea Neurological: Confusion Objective Exam Vital Signs Vital Signs Date Time Temp Pulse Resp B/P (MAP) Pulse Ox O2 Delivery O2 Flow Rate FiO2 08/30/20 03:58 36.3 50 18 117/59 (78) 91 Nasal Cannula 3.00 08/27/20 06:46 28 Capillary Refill : Less Than 3 Seconds General Appearance: No Apparent Distress, WD/WN, Chronically ill Respiratory: Lungs Clear, Decreased Breath Sounds Cardiovascular: Regular Rate, Rhythm Neurologic/Psychiatric: Alert, Oriented x3, Disoriented Results/Procedures Lab Patient resulted labs reviewed. Assessment/Plan Assessment and Plan Assess & Plan/Chief Complaint Assessment: AECOPD causing respiratory fatigue and intubation status post extubation on 08/23/2020 Pneumonia from staph hominis Smoker Parkinson's Infiltrates c/w PNA empirically placed on abx Leukocytosis Bradycardia Left wrist/hand flaccidity will evaluate abnormal x-ray with orthopedics Plan: Vent IV abx Supportive care Complex case TF to start 08/15/2020: Vent management IV antibiotics IV steroids Sedation 08/16/2020 Cardiology appreciated for bradycardia Failed weaning trial Likely will need [place] 08/17/2020: Attempt to wean failed May need [place] [facility] for bradycardia Maintain vent 08/18/20: Wean attempt If fails wean will need [place] 08/19/20: Continue wean trial Monitor ABG Labs reviewed 08/20/2020: Continue to attempt to wean Prognosis guarded 08/21/2020: Lasix 40 mg IVP Weaning trial 08/22/2020: Attempt to wean Monitor closely 08/23/20: Extubated today Monitor closely Left wrist evaluation 08/29/2020: Confusion clearing Much improved status Discontinue Solu-Medrol Start prednisone taper Critical Care Critically Ill Patient Diagnosis/Problems Diagnosis/Problems (1) Respiratory failure (2) COPD exacerbation (3) Smoker (4) Parkinson disease RENNY BATES DO Aug 29, 2020 06:31
[2020-08-29 06:41] LABS: BASOPHILS % (AUTO) 0 % (0-10); EOSINOPHILS % (AUTO) 0 % (0-10); HEMATOCRIT 38 % (40-54); HEMOGLOBIN 12.6 g/dL (13.3-17.7); LYMPHOCYTES # (AUTO) 1.8 10^3/uL (1.0-4.0); LYMPHOCYTES % (AUTO) 12 % (12-44); MEAN CORPUSCULAR HEMOGLOBIN 31 pg (25-34); MEAN CORPUSCULAR HGB CONC 33 g/dL (32-36); MEAN CORPUSCULAR VOLUME 94 fL (80-99); MEAN PLATELET VOLUME 10.7 fL (9.0-12.2); MONOCYTES # (AUTO) 1.3 10^3/uL (0.0-1.0); MONOCYTES % (AUTO) 9 % (0-12); NEUTROPHILS % (AUTO) 77 % (42-75); PLATELET COUNT 325 10^3/uL (130-400); WHITE BLOOD COUNT 14.3 10^3/uL (4.3-11.0)
[2020-08-29 06:54] LABS: ALBUMIN 3.5 GM/DL (3.2-4.5); CHLORIDE 103 MMOL/L (98-107); POTASSIUM 3.7 MMOL/L (3.6-5.0); SODIUM 140 MMOL/L (135-145)
[2020-08-29 06:56] LABS: CALCIUM 9.2 MG/DL (8.5-10.1)
[2020-08-29 06:57] LABS: GLUCOSE 93 MG/DL (70-105); TOTAL PROTEIN 6.3 GM/DL (6.4-8.2)
[2020-08-29 06:58] LABS: CARBON DIOXIDE 26 MMOL/L (21-32)
[2020-08-29 06:59] LABS: BILIRUBIN,TOTAL 0.7 MG/DL (0.1-1.0)
[2020-08-29 07:00] LABS: ALKALINE PHOSPHATASE 49 U/L (40-136); CREATININE SERUM 0.58 MG/DL (0.60-1.30); GFR ESTIMATED > 60
[2020-08-29 07:01] LABS: BUN/CREATININE RATIO 26
[2020-08-29 07:03] LABS: ALANINE AMINOTRANSFERASE 15 U/L (0-55)
[2020-08-29 07:51] VITALS: BP 157/71
[2020-08-29] MEDS: BISACODYL 10 MG SUPP (DULCOLAX) PR SCH (08:23)
[2020-08-29] MEDS: LACTULOSE SYRUP 10GM/15ML (ENULOSE) 30ML UDC PO SCH ×2 (08:23→20:59)
[2020-08-29] MEDS: PARoxetine 20 MG (PAXIL) TAB PO SCH (08:29)
[2020-08-29] MEDS: FAMOTIDINE 20 MG (PEPCID) TABLET GT SCH ×2 (08:29→20:59)
[2020-08-29] MEDS: risperiDONE 0.25 MG (RisperDAL) TAB PO SCH ×2 (08:29→20:58)
[2020-08-29] MEDS: ENOXAPARIN 40 MG/0.4 ML (LOVENOX) SYR SC SCH (08:30)
[2020-08-29] MEDS: lisINopril 5 MG (PRINIVIL) TABLET PO SCH (08:30)
[2020-08-29] MEDS: GABAPENTIN 300 MG (NEURONTIN) CAP PO SCH ×3 (08:30→20:59)
[2020-08-29] MEDS: FLUTICASONE NASAL SPRAY (FLONASE) 16 GM BTL NS SCH ×2 (08:30→20:59)
[2020-08-29] MEDS: SINEMET CR 50/200 (CARBIDOPA/LEVODOPA SA) TAB PO SCH ×4 (08:31→20:58)
--- NOTE | 2020-08-29 12:18 | Physical Therapy Daily Note ---
PT Daily Note-Current Subjective Pt. in bed, agrees to sit up in the chair. He has no c/o pain. Transfers SCALE: Activities may be completed with or without assistive devices. 1-Vvkuvfjzxx-xsrltit completes the activity by him/herself with no assistance from a helper. 5-Set-up or Clean-up Assistance-helper sets up or cleans up; patient completes activity. [place] assists only prior to or following the activity. 4-Supervision or Touching Assistance-helper provides verbal cues and/or touching/steadying and/or contact guard assistance as patient completes activity . Assistance may be provided throughout the activity or intermittently. 3-Partial/Moderate Assistance-helper does LESS THAN HALF the effort. [place] lifts, holds or supports trunk or limbs, but provides less than half the effort. 2-Substantial/Maximal Assistance-helper does MORE THAN HALF the effort. [place] lifts or holds trunk or limbs and provides more than half the effort. 5-Pojizjavg-mezwfv does ALL the effort. Patient does none of the effort to complete the activity. Or, the assistance of 2 or more helpers is required for the patient to complete the activity. If activity was not attempted, code reason: 7-Patient Refused. 9-Not Applicable-not attempted and the patient did not perform the activity before the current illness, exacerbation or injury. 10-Not Attempted due to Environmental Limitations-(lack of equipment, weather restraints, etc.). 88-Not Attempted due to Medical Conditions or Safety Concerns. Lying to Sitting/Side of Bed(Q: 4 Sit to Stand (QC): 3 Chair/Dwe-an-Zrfkl Xfer(QC): 1 (min A x 2) Weight Bearing Right Lower Extremity: Right Full Weight Bearing Left Lower Extremity: Left Full Weight Bearing Gait Training Does the Patient Walk?: Yes Exercises Seated Therapy Exercises: Ankle pumps, Long arc quads, Hip flexion Treatments transfers Assessment Current Status: Good Progress, Fair Progress Pt. did well from supine to sit and mod A for sit to stand. He required min A x 2 with bed to chair transfer using FWW. Pt. did well with seated LE exercises with therapist frequent demonstration. All needs met post session, chair alarm in place, call light in reach. PT Short Term Goals Short Term Goals Time Frame: Sep 05, 2020 Roll Left & Right: 2 Sit to lyin Lying to sitting on side of be: 2 Sit to stand: 2 Chair/bpm-zl-hylib transfer: 2 PT Mcfp Goals Senior Strategy Analyst Goals PT Senior Strategy Analyst Goals Time Frame: Sep 26, 2020 Roll Left & Right (QC): 4 Sit to Lying (QC): 4 Lying-Sitting on Side/Bed(QC): 4 Sit to Stand (QC): 4 Chair/Ykm-eo-Oxlvc Xfer(QC): 4 Toilet Transfer (QC): 4 Does the Patient Walk: Yes Walk 10 feet (QC): 4 PT Plan Treatment/Plan Treatment Plan: Continue Plan of Care Treatment Plan: Bed Mobility, Education, Functional Activity Maame, Functional Strength, Gait, Safety, Therapeutic Exercise, Transfers Treatment Duration: Sep 26, 2020 Frequency: 6 times per week Estimated Hrs Per Day: .5 hour per day Patient and/or Family Agrees t: Yes Time/GCodes Time In: 748 Time Out: 800 Total Billed Treatment Time: 12 Total Billed Treatment 1, FA 12' VENTURA GILL PT Aug 29, 2020 12:18
[2020-08-29] MEDS: D5W 1000 ML IV SOLUTION 1,000 ML IV SCH (14:32)
[2020-08-29] MEDS: SIMvastatin 10 MG (ZOCOR) TAB PO SCH (17:05)
[2020-08-29] MEDS: RT--FLUTICASONE/SALMETEROL 113-14 (AIRDUO RespiCLICK) IH SCH (20:09)
[2020-08-30] MEDS: methylPREDNISolone 40 MG/ML (Solu-MEDROL) VIAL IV SCH (05:09)
[2020-08-30 06:01] LABS: BASOPHILS % (AUTO) 0 % (0-10); EOSINOPHILS % (AUTO) 0 % (0-10); HEMATOCRIT 38 % (40-54); HEMOGLOBIN 12.6 g/dL (13.3-17.7); LYMPHOCYTES # (AUTO) 2.2 10^3/uL (1.0-4.0); LYMPHOCYTES % (AUTO) 16 % (12-44); MEAN CORPUSCULAR HEMOGLOBIN 31 pg (25-34); MEAN CORPUSCULAR HGB CONC 33 g/dL (32-36); MEAN CORPUSCULAR VOLUME 93 fL (80-99); MEAN PLATELET VOLUME 9.6 fL (9.0-12.2); MONOCYTES # (AUTO) 1.2 10^3/uL (0.0-1.0); MONOCYTES % (AUTO) 8 % (0-12); NEUTROPHILS # (AUTO) 10.3 10^3/uL (1.8-7.8); NEUTROPHILS % (AUTO) 73 % (42-75); PLATELET COUNT 336 10^3/uL (130-400); WHITE BLOOD COUNT 14.1 10^3/uL (4.3-11.0)
[2020-08-30 06:17] LABS: ALBUMIN 3.4 GM/DL (3.2-4.5); CHLORIDE 104 MMOL/L (98-107); SODIUM 140 MMOL/L (135-145)
[2020-08-30] MEDS: predniSONE 20 MG TAB PO SCH (06:17)
[2020-08-30 06:19] LABS: CALCIUM 8.9 MG/DL (8.5-10.1)
[2020-08-30 06:20] LABS: GLUCOSE 96 MG/DL (70-105)
[2020-08-30 06:21] LABS: CARBON DIOXIDE 27 MMOL/L (21-32)
[2020-08-30 06:22] LABS: BILIRUBIN,TOTAL 0.7 MG/DL (0.1-1.0)
[2020-08-30 06:23] LABS: ALKALINE PHOSPHATASE 47 U/L (40-136); CREATININE SERUM 0.57 MG/DL (0.60-1.30); GFR ESTIMATED > 60
[2020-08-30 06:25] LABS: BUN/CREATININE RATIO 30
[2020-08-30 06:26] LABS: ALANINE AMINOTRANSFERASE 19 U/L (0-55)
[2020-08-30] MEDS: RT-ALBUTEROL/IPRATROPIUM 3 ML (DUONEB) VIAL INH SCH ×2 (07:05→18:41)
[2020-08-30] MEDS: RT--FLUTICASONE/SALMETEROL 113-14 (AIRDUO RespiCLICK) IH SCH (07:07)
[2020-08-30 07:33] VITALS: BP 154/67
[2020-08-30] MEDS: GABAPENTIN 300 MG (NEURONTIN) CAP PO SCH ×3 (08:24→20:18)
[2020-08-30] MEDS: FAMOTIDINE 20 MG (PEPCID) TABLET GT SCH ×2 (08:25→20:18)
[2020-08-30] MEDS: risperiDONE 0.25 MG (RisperDAL) TAB PO SCH ×2 (08:25→20:18)
[2020-08-30] MEDS: PARoxetine 20 MG (PAXIL) TAB PO SCH (08:25)
[2020-08-30] MEDS: FLUTICASONE NASAL SPRAY (FLONASE) 16 GM BTL NS SCH ×2 (08:25→23:00)
[2020-08-30] MEDS: SINEMET CR 50/200 (CARBIDOPA/LEVODOPA SA) TAB PO SCH ×4 (08:26→20:19)
[2020-08-30] MEDS: BISACODYL 10 MG SUPP (DULCOLAX) PR SCH (08:26)
[2020-08-30] MEDS: lisINopril 5 MG (PRINIVIL) TABLET PO SCH (08:26)
[2020-08-30] MEDS: ENOXAPARIN 40 MG/0.4 ML (LOVENOX) SYR SC SCH (08:27)
--- NOTE | 2020-08-30 09:40 | Progress Note - Hospitalist ---
Subjective HPI/CC On Admission Date Seen by Provider: Aug 30, 2020 Time Seen by Provider: 10:00 CC: Respiratory failure from AECOPD HPI: This is a 70yoWM clinic Pt of Dr. Dave who has a PMH of COPD and Parkinsons, he underwent emergency intubation due to rapid decline in status while at [place] [facility] to ICU admission. Central line is functioning well, procalcitonin at 0.87, IV steroids maintained, OG tube is placed and will start tube feedings today. Cefepime and Vancomycin maintained and [place] [facility] + Cocci. Subjective/Events-last exam Patient doing a lot better More lucid Pain is controlled No shortness of breath Review of Systems General: Fatigue, Malaise Pulmonary: Dyspnea Neurological: Confusion Objective Exam Vital Signs Vital Signs Date Time Temp Pulse Resp B/P (MAP) Pulse Ox O2 Delivery O2 Flow Rate FiO2 08/30/20 18:45 96 High Flow N/C 3.00 08/30/20 16:08 36.6 67 20 148/73 (98) 08/27/20 06:46 28 Capillary Refill : Less Than 3 Seconds General Appearance: No Apparent Distress, WD/WN, Chronically ill Respiratory: Lungs Clear, Decreased Breath Sounds Cardiovascular: Regular Rate, Rhythm Neurologic/Psychiatric: Alert, Oriented x3 Results/Procedures Lab Laboratory Tests 08/30/20 05:50 Patient resulted labs reviewed. Assessment/Plan Assessment and Plan Assess & Plan/Chief Complaint Assessment: AECOPD causing respiratory fatigue and intubation status post extubation on 08/23/2020 Pneumonia from staph hominis Smoker Parkinson's Infiltrates c/w PNA empirically placed on abx Leukocytosis Bradycardia Left wrist/hand flaccidity will evaluate abnormal x-ray with orthopedics Plan: Vent IV abx Supportive care Complex case TF to start 08/15/2020: Vent management IV antibiotics IV steroids Sedation 08/16/2020 Cardiology appreciated for bradycardia Failed weaning trial Likely will need [place] 08/17/2020: Attempt to wean failed May need [place] [facility] for bradycardia Maintain vent 08/18/20: Wean attempt If fails wean will need [place] 08/19/20: Continue wean trial Monitor ABG Labs reviewed 08/20/2020: Continue to attempt to wean Prognosis guarded 08/21/2020: Lasix 40 mg IVP Weaning trial 08/22/2020: Attempt to wean Monitor closely 08/23/20: Extubated today Monitor closely Left wrist evaluation 08/29/2020: Confusion clearing Much improved status Discontinue Solu-Medrol Start prednisone taper 08/30/2020: Improved confusion Monitor closely PT and OT Critical Care Critically Ill Patient Diagnosis/Problems Diagnosis/Problems (1) Respiratory failure (2) COPD exacerbation (3) Smoker (4) Parkinson disease RENNY BATES DO Aug 30, 2020 09:40
[2020-08-30] MEDS: LACTULOSE SYRUP 10GM/15ML (ENULOSE) 30ML UDC PO SCH ×2 (11:42→21:57)
[2020-08-30 16:08] VITALS: BP 148/73
[2020-08-30] MEDS: SIMvastatin 10 MG (ZOCOR) TAB PO SCH (17:08)
[2020-08-30 23:31] VITALS: BP 159/69
[2020-08-31] MEDS: predniSONE 20 MG TAB PO SCH (06:02)
[2020-08-31 06:18] LABS: BASOPHILS % (AUTO) 0 % (0-10); EOSINOPHILS # (AUTO) 0.1 10^3/uL (0.0-0.3); EOSINOPHILS % (AUTO) 1 % (0-10); HEMATOCRIT 39 % (40-54); HEMOGLOBIN 12.7 g/dL (13.3-17.7); LYMPHOCYTES # (AUTO) 1.9 10^3/uL (1.0-4.0); LYMPHOCYTES % (AUTO) 19 % (12-44); MEAN CORPUSCULAR HEMOGLOBIN 31 pg (25-34); MEAN CORPUSCULAR HGB CONC 33 g/dL (32-36); MEAN CORPUSCULAR VOLUME 93 fL (80-99); MEAN PLATELET VOLUME 9.4 fL (9.0-12.2); MONOCYTES # (AUTO) 0.9 10^3/uL (0.0-1.0); MONOCYTES % (AUTO) 9 % (0-12); NEUTROPHILS % (AUTO) 69 % (42-75); PLATELET COUNT 327 10^3/uL (130-400); WHITE BLOOD COUNT 10.1 10^3/uL (4.3-11.0)
--- NOTE | 2020-08-31 06:33 | Progress Note - Hospitalist ---
Subjective HPI/CC On Admission Date Seen by Provider: Aug 31, 2020 Time Seen by Provider: 10:00 CC: Respiratory failure from AECOPD HPI: This is a 70yoWM clinic Pt of Dr. Dave who has a PMH of COPD and Parkinsons, he underwent emergency intubation due to rapid decline in status while at [place] [facility] to ICU admission. Central line is functioning well, procalcitonin at 0.87, IV steroids maintained, OG tube is placed and will start tube feedings today. Cefepime and Vancomycin maintained and sputum on preliminary culture [place] [facility] [place] Gram + Cocci. Subjective/Events-last exam Pt doing really well Pt is doing so well that inpatient rehab may not be required Delusion status is improved Lungs remain clear Review of Systems General: Fatigue, Malaise Pulmonary: Dyspnea Neurological: Confusion Objective Exam Vital Signs Vital Signs Date Time Temp Pulse Resp B/P (MAP) Pulse Ox O2 Delivery O2 Flow Rate FiO2 09/01/20 00:14 36.3 56 18 104/57 (73) 92 Room Air 08/31/20 07:57 3.00 08/27/20 06:46 28 Capillary Refill : Less Than 3 Seconds General Appearance: No Apparent Distress, WD/WN, Chronically ill Respiratory: Lungs Clear Cardiovascular: Regular Rate, Rhythm Neurologic/Psychiatric: Alert, Oriented x3 Results/Procedures Lab Laboratory Tests 08/31/20 06:05 Patient resulted labs reviewed. Assessment/Plan Assessment and Plan Assess & Plan/Chief Complaint Assessment: AECOPD causing respiratory fatigue and intubation status post extubation on 08/23/2020 Pneumonia from staph hominis Smoker Parkinson's Infiltrates c/w PNA empirically placed on abx Leukocytosis Bradycardia Left wrist/hand flaccidity will evaluate abnormal x-ray with orthopedics Plan: Vent IV abx Supportive care Complex case TF to start 08/15/2020: Vent management IV antibiotics IV steroids Sedation 08/16/2020 Cardiology appreciated for bradycardia Failed weaning trial Likely will need [place] 08/17/2020: Attempt to wean failed May need [place] [facility] for bradycardia Maintain vent 08/18/20: Wean attempt If fails wean will need [place] 08/19/20: Continue wean trial Monitor ABG Labs reviewed 08/20/2020: Continue to attempt to wean Prognosis guarded 08/21/2020: Lasix 40 mg IVP Weaning trial 08/22/2020: Attempt to wean Monitor closely 08/23/20: Extubated today Monitor closely Left wrist evaluation 08/29/2020: Confusion clearing Much improved status Discontinue Solu-Medrol Start prednisone taper 08/30/2020: Improved confusion Monitor closely PT and OT 08/31/2020: Dramatic improvement Discharge home with home health tomorrow Critical Care Critically Ill Patient Diagnosis/Problems Diagnosis/Problems (1) Respiratory failure (2) COPD exacerbation (3) Smoker (4) Parkinson disease RENNY BATES DO Aug 31, 2020 06:33
[2020-08-31 06:39] LABS: ALBUMIN 3.5 GM/DL (3.2-4.5)
[2020-08-31 06:40] LABS: CHLORIDE 102 MMOL/L (98-107); POTASSIUM 3.8 MMOL/L (3.6-5.0); SODIUM 141 MMOL/L (135-145)
[2020-08-31 06:41] LABS: CALCIUM 8.8 MG/DL (8.5-10.1)
[2020-08-31 06:42] LABS: GLUCOSE 79 MG/DL (70-105); TOTAL PROTEIN 6.1 GM/DL (6.4-8.2)
[2020-08-31 06:43] LABS: CARBON DIOXIDE 29 MMOL/L (21-32)
[2020-08-31 06:44] LABS: BILIRUBIN,TOTAL 0.9 MG/DL (0.1-1.0)
[2020-08-31 06:45] LABS: ALKALINE PHOSPHATASE 47 U/L (40-136); CREATININE SERUM 0.57 MG/DL (0.60-1.30); GFR ESTIMATED > 60
[2020-08-31 06:47] LABS: BUN/CREATININE RATIO 23
[2020-08-31 06:48] LABS: ALANINE AMINOTRANSFERASE 14 U/L (0-55)
[2020-08-31] MEDS: RT-ALBUTEROL/IPRATROPIUM 3 ML (DUONEB) VIAL INH SCH ×2 (07:10→20:05)
[2020-08-31] MEDS: RT--FLUTICASONE/SALMETEROL 113-14 (AIRDUO RespiCLICK) IH SCH ×2 (07:11→20:10)
[2020-08-31 07:57] VITALS: BP 147/65
[2020-08-31] MEDS: BISACODYL 10 MG SUPP (DULCOLAX) PR SCH (08:12)
[2020-08-31] MEDS: FAMOTIDINE 20 MG (PEPCID) TABLET GT SCH ×2 (08:23→20:49)
[2020-08-31] MEDS: risperiDONE 0.25 MG (RisperDAL) TAB PO SCH ×2 (08:23→20:49)
[2020-08-31] MEDS: SINEMET CR 50/200 (CARBIDOPA/LEVODOPA SA) TAB PO SCH ×4 (08:23→20:49)
[2020-08-31] MEDS: GABAPENTIN 300 MG (NEURONTIN) CAP PO SCH ×3 (08:23→20:49)
[2020-08-31] MEDS: PARoxetine 20 MG (PAXIL) TAB PO SCH (08:24)
[2020-08-31] MEDS: ENOXAPARIN 40 MG/0.4 ML (LOVENOX) SYR SC SCH (08:24)
[2020-08-31] MEDS: lisINopril 5 MG (PRINIVIL) TABLET PO SCH (08:24)
[2020-08-31] MEDS: LACTULOSE SYRUP 10GM/15ML (ENULOSE) 30ML UDC PO SCH ×2 (08:24→20:51)
[2020-08-31] MEDS: FLUTICASONE NASAL SPRAY (FLONASE) 16 GM BTL NS SCH (08:25)
[2020-08-31] MEDS ORDERED: LORazepam INJ 2 MG/ML (ATIVAN) VIAL IVP PRN (09:45)
[2020-08-31] MEDS ORDERED: hydrALAZINE (APESOLINE) 20 MG/ML VIAL IV PRN (09:45)
[2020-08-31] MEDS ORDERED: MIRTAZAPINE 15 MG (REMERON) TAB PO PRN (10:00)
[2020-08-31] MEDS ORDERED: ACETAMINOPHEN 650 MG SUPP (TYLENOL) PR PRN (10:00)
--- NOTE | 2020-08-31 11:33 | Physical Therapy Daily Note ---
PT Daily Note-Current Subjective Patient more alert today. O2 not in place with SAO2 92% RA. Mental Status Patient Orientation: Person Attachments: Oxygen Transfers SCALE: Activities may be completed with or without assistive devices. 1-Wrvgjmagnj-wwsqekk completes the activity by him/herself with no assistance from a helper. 5-Set-up or Clean-up Assistance-helper sets up or cleans up; patient completes activity. [place] assists only prior to or following the activity. 4-Supervision or Touching Assistance-helper provides verbal cues and/or touching/steadying and/or contact guard assistance as patient completes activity. Assistance may be provided throughout the activity or intermittently. 3-Partial/Moderate Assistance-helper does LESS THAN HALF the effort. [place] lifts, holds or supports trunk or limbs, but provides less than half the effort. 2-Substantial/Maximal Assistance-helper does MORE THAN HALF the effort. [place] lifts or holds trunk or limbs and provides more than half the effort. 7-Ztyfmljmd-pdlkxw does ALL the effort. Patient does none of the effort to complete the activity. Or, the assistance of 2 or more helpers is required for the patient to complete the activity. If activity was not attempted, code reason: 7-Patient Refused. 9-Not Applicable-not attempted and the patient did not perform the activity before the current illness, exacerbation or injury. 10-Not Attempted due to Environmental Limitations-(lack of equipment, weather restraints, etc.). 88-Not Attempted due to Medical Conditions or Safety Concerns. Sit to Stand (QC): 4 (CGA) Weight Bearing Right Lower Extremity: Right Full Weight Bearing Left Lower Extremity: Left Full Weight Bearing Gait Training Does the Patient Walk?: Yes Distance: 275' Walk 10 feet (QC): 4 (CGA) Walk 50 ft with 2 Turns(QC): 4 (CGA) Walk 150 ft (QC): 4 (CGA) Gait Assistive Device: FWW very slow bret/functional gait sequence Assessment SAO2 monitored during session on RA with patient maintaining 90%. Did place O2 2L NC after session with RN notified. Patient continues to have a live sitter and chair alarm activated. PT Short Term Goals Short Term Goals Time Frame: Sep 05, 2020 Roll Left & Right: 2 Sit to lyin Lying to sitting on side of be: 2 Sit to stand: 2 Chair/akn-ur-uoacx transfer: 2 PT Chcf Goals Sausage Grinder Goals PT Chcf Goals Time Frame: Sep 26, 2020 Roll Left & Right (QC): 4 Sit to Lying (QC): 4 Lying-Sitting on Side/Bed(QC): 4 Sit to Stand (QC): 4 Chair/Wfm-iw-Hhkhs Xfer(QC): 4 Toilet Transfer (QC): 4 Does the Patient Walk: Yes Walk 10 feet (QC): 4 PT Plan Treatment/Plan Treatment Plan: Continue Plan of Care Treatment Plan: Bed Mobility, Education, Functional Activity Maame, Functional Strength, Gait, Safety, Therapeutic Exercise, Transfers Treatment Duration: Sep 26, 2020 Frequency: 6 times per week Estimated Hrs Per Day: .5 hour per day Patient and/or Family Agrees t: Yes Time/GCodes Time In: 1105 Time Out: 1123 Total Billed Treatment Time: 18 Total Billed Treatment 1 visit FA 18 min KEREN LARA PT Aug 31, 2020 11:33
--- NOTE | 2020-08-31 12:19 | Occupational Ther Daily Note ---
OT Current Status-Daily Note Subjective Pt. does not report pain, but does state that he has some "numbness" in left wrist. Pt. is instructed to keep wrist brace on per instruction. He has it off when OT entered room. Appearance Pt. up in chair. Alert and smiles. Mental Status/Objective Patient Orientation: Person Attachments: Oxygen ADL-Treatment Therapy Code Descriptions/Definitions Functional [place] Measure: 0=Not Assessed/NA 4=Minimal Assistance 1=Total Assistance 5=Supervision or Setup 2=Maximal Assistance 6=Modified [place] 3=Moderate Assistance 7=Complete IndependenceSCALE: Activities may be completed with or without assistive devices. 9-Vosrfetnwm-ermvccz completes the activity by him/herself with no assistance from a helper. 5-Set-up or Clean-up Assistance-helper sets up or cleans up; patient completes activity. [place] assists only prior to or following the activity. 4-Supervision or Touching Assistance-helper provides verbal cues and/or touching/steadying and/or contact guard assistance as patient completes activity. Assistance may be provided throughout the activity or intermittently. 3-Partial/Moderate Assistance-helper does LESS THAN HALF the effort. [place] lifts, holds or supports trunk or limbs, but provides less than half the effort. 2-Substantial/Maximal Assistance-helper does MORE THAN HALF the effort. [place] lifts or holds trunk or limbs and provides more than half the effort. 9-Cynwaqkfe-piivft does ALL the effort. Patient does none of the effort to complete the activity. Or, the assistance of 2 or more helpers is required for the patient to complete the activity. If activity was not attempted, code reason: 7-Patient Refused. 9-Not Applicable-not attempted and the patient did not perform the activity before the current illness, exacerbation or injury. 10-Not Attempted due to Environmental Limitations-(lack of equipment, weather restraints, etc.). 88-Not Attempted due to Medical Conditions or Safety Concerns. On/Off Footwear: 4 (SBA and increased time to doff/don slipper socks while seated in chair.) Other Treatment Pt. up in chair. He has sitter present. Noted he had taken splint off. OT encourages him to keep it on. Pt. is able to demonstrate full AROM in all planes. Reports some numbness on dorsal wrist, but no pain. OT re-applies splint. Noted that pt. has oxygen on, but not in his nose. OT re-applies oxygen correctly. Pt. is able to carry on conversation with some difficulty at times during conversation in regards to making sense. Pt. states that he is eating okay. States that he doesn't know what happened to him, but remembers, "bad dreams." OT hands pt. comb and he begins to comb hair, but gets a phone call. Pt. does not know how to answer phone. OT pushes button for him and pt. carries on brief phone call. Phone call ends and pt. puts down phone, but does not turn off phone. OT does this for him. All needs are met up in chair. Education OT Patient Education: Correct positioning, Exercise program, Modified ADL techniques, Progress toward Goal/Update tx plan, Purpose of tx/functional activities, Reviewed precautions, Rehab process Teaching Recipient: Patient Teaching Methods: Demonstration, Discussion Response to Teaching: Verbalize Understanding, Return Demonstration, Reinforcement Needed OT Short Term Goals Short Term Goals Time Frame: Sep 07, 2020 Eatin Oral hygiene: 3 Toileting hygiene: 3 Upper body dressin OT Halfway Goals Halfway Goals Time Frame: Sep 21, 2020 Eating (QC): 4 Oral Hygiene (QC): 4 Toileting Hygiene (QC): 4 Shower/Bathe Self (QC): 4 Upper Body Dressing (QC): 5 Lower Body Dressing (QC): 4 On/Off Footwear (QC): 4 Additional Goals: 1-Demonstrate ADL Tasks, 2-Verbalize Understanding, 3- ImproveStrength/Maame 1=Demonstrate adherence to instructed precautions during ADL tasks. 2=Patient will verbalize/demonstrate understanding of assistive devices/modifications for ADL. 3=Patient will improve strength/tolerance for activity to enable patient to perform ADL's. OT Education/Plan Problem List/Assessment Assessment: Decreased Activ Tolerance, Decreased Safety Aware, Impaired Cognition, Impaired I ADL's, Impaired Self-Care Skills Discharge Recommendations Plan/Recommendations: Continue POC Therapy Discharge Recommendati: Post Acute OT Treatment Plan/Plan of Care Treatment,Training & Education: Yes Patient would benefit from OT for education, treatment and training to promote independence in ADL's, mobility, safety and/or upper extremity function for ADL's. Plan of Care: ADL Retraining, Functional Mobility, UE Funct Exercise/Act Treatment Duration: Sep 21, 2020 Frequency: 5 times per week Estimated Hrs Per Day: .5 hour per day Agreement: Yes Rehab Potential: Fair Time/GCodes Start Time: 10:45 Stop Time: 11:00 Total Time Billed (hr/min): 15 Billed Treatment Time 1, ADL RAFAELA MARVIN OT Aug 31, 2020 12:19
[2020-08-31 15:11] VITALS: BP 119/63
[2020-08-31] MEDS ORDERED: SIMvastatin 10 MG (ZOCOR) TAB PO SCH (18:00)
[2020-09-01 00:14] VITALS: BP 104/57
[2020-09-01] MEDS ORDERED: PRED10TA22 PO (06:36)
--- NOTE | 2020-09-01 06:37 | Discharge Summary ---
Discharge Summary Hospital Course Was the Problem List Reviewed?: Yes Problems/Dx: (1) Respiratory failure (2) COPD exacerbation (3) Smoker (4) Parkinson disease Hospital Course Date of Admission: August 13, 2020 at 23:23 Admission Diagnosis : Family Physician/Provider: Jorge Dave MD Date of Discharge: 09/01/20 Discharge Diagnosis: Status post ventilator dependent respiratory failure, exacerbation of COPD, Parkinson's, left wrist fracture occurred prior to admit and a fall at home delirium Hospital Course: Hospital Course: Pt had a lengthy 20 days hospital course after he was admitted after intubated with respiratory from [place] due to exacerbation of COPD and pneumonia of staphylococcus hominids. Pt was maintained on IV antibiotics, he took a long duration in time to wean off the ventilator that was assisted by EICU pulmonary consultation delirium did persist for several days, at time of DC he was much improved. His lungs remain clear, labs remain stable, and pt was dis charged on home health with his . Labs and Pending Lab Test: Microbiology 08/14/20 Gram Stain - Final, Complete 08/14/20 Sputum Culture - Final, Complete Haemophilus influenza 08/14/20 Blood Culture - Final, Complete No growth Home Meds Active Prednisone 10 Mg Tab.ds.pk 10 Mg PO DAILY Take 4 tabs(40mg)daily,decrease by 1 tab(10MG)daily. Reported Advair 250-50 Diskus (Fluticasone/Salmeterol) 1 Each Blst.w.dev 1 Puff INH BID Proair Hfa (Albuterol Sulfate) 1 Puff Puff 1 Puff IH Q6H PRN Ibuprofen 800 Mg Tablet 800 Mg PO Q8H PRN Tizanidine HCl 2 Mg Tablet 2 Mg PO Q8H PRN Mirtazapine 15 Mg Tablet 15 Mg PO HS PRN Lisinopril 5 Mg Tablet 5 Mg PO DAILY Neurontin (Gabapentin) 300 Mg Capsule 300 Mg PO TID Paroxetine HCl 20 Mg Tablet 20 Mg PO DAILY Lovastatin 20 Mg Tablet 20 Mg PO 1800 W/MEAL Flonase Allergy Relief (Fluticasone Propionate) 9.9 Ml [place].susp 1 [place] NS BID Carbidopa-Levo ER 25-100 Tab (Carbidopa/Levodopa) 1 Each Tablet.er 1 Ea PO QID Assessment/Pt Instructions PCP in 1 week Discharge Planning: <30 minutes discharge planning Discharge Instructions Discharge Diet: No Restrictions Activity as Tolerated: Yes Discharge Physical Examination Vital Signs Vital Signs Date Time Temp Pulse Resp B/P (MAP) Pulse Ox O2 Delivery O2 Flow Rate FiO2 09/01/20 00:14 36.3 56 18 104/57 (73) 92 Room Air 08/31/20 07:57 3.00 08/27/20 06:46 28 General Appearance: No Apparent Distress, WD/WN, Chronically ill Respiratory: Lungs Clear Cardiovascular: Regular Rate, Rhythm Neurologic/Psychiatric: Alert, Oriented x3, No Motor/Sensory Deficits, Normal Mood/Affect Allergies: Coded Allergies: codeine (Verified Allergy, Unknown, 08/13/20) Discharge Summary Date of Admission August 13, 2020 at 23:23 Date of Discharge Admission Diagnosis Assessment: AECOPD causing respiratory fatigue and intubation Smoker Parkinson's Infiltrates c/w PNA empirically placed on abx Leukocytosis Plan: Vent IV abx Supportive care Complex case TF to start Discharge Diagnosis Assessment: AECOPD causing respiratory fatigue and intubation status post extubation on 08/23/2020 Pneumonia from staph hominis Smoker Parkinson's Infiltrates c/w PNA empirically placed on abx Leukocytosis Bradycardia Left wrist/hand flaccidity will evaluate abnormal x-ray with orthopedics Plan: Vent IV abx Supportive care Complex case TF to start 08/15/2020: Vent management IV antibiotics IV steroids Sedation 08/16/2020 Cardiology appreciated for bradycardia Failed weaning trial Likely will need [place] 08/17/2020: Attempt to wean failed May need [place] [facility] for bradycardia Maintain vent 08/18/20: Wean attempt If fails wean will need [place] 08/19/20: Continue wean trial Monitor ABG Labs reviewed 08/20/2020: Continue to attempt to wean Prognosis guarded 08/21/2020: Lasix 40 mg IVP Weaning trial 08/22/2020: Attempt to wean Monitor closely 08/23/20: Extubated today Monitor closely Left wrist evaluation 08/29/2020: Confusion clearing Much improved status Discontinue Solu-Medrol Start prednisone taper 08/30/2020: Improved confusion Monitor closely PT and OT 08/31/2020: Dramatic improvement Discharge home with home health tomorrow (1) Respiratory failure (2) COPD exacerbation (3) Smoker (4) Parkinson disease RENNY BATES DO Sep 01, 2020 06:37
--- NOTE | 2020-09-01 06:37 | D/C HH Face to Face Order ---
D/C Face to Face Orders Reconcile Patient Problems Problems Reviewed?: Yes Instructions for Patient [facility] Home Health Patient Instructions/FollowUp: PCP 1 week Physician to follow Patient: PCP Discharge Diet for Home: No Restrictions Patient Problems: Debility s/p respiratory failure PD Patient Data-Allergies,Ht & Wt Patient Allergies: Coded Allergies: codeine (Verified Allergy, Unknown, 08/13/20) Home Health Need/Face to Face Date of Face to Face: Sep 01, 2020 Clinical Findings: Generalized weakness and fatigue, Instability, Muscle weakness, Unsteady gait I have seen Pt [id number]: Yes Discharged To: Home Diagnosis/Conditions: Debility s/p respiratory failure PD Patient is Homebound due to: CognItive deficits, Muscle weakness, Shortness of breath/distress Homebound Status Due to the above stated illness, injury or surgical procedure (medical condition or diagnosis) and associated clinical findings, the patient is homebound because of his/her inability to leave home except with aid of a supportive device and/or person AND leaving the home requires a considerable and taxing effort or is medically contraindicated. Pt req the following assistanc: [facility] Nursing Orders Home Health Services Order: Nursing Services, Breakfast Hostess-Evaluate & Treat, Physical Therapy-Evaluate & Treat Home Health Infusion Therapy Line Start Date: Aug 21, 2020 Certify Stmt I certify that this patient is under my care and that I, a nurse practitioner or a physician; a social worker assistant working with me, had a face to face encounter that -m eets the physician face to face encounter requirements with this patient as dated. RENNY BATES DO Sep 01, 2020 06:37
[2020-09-01] MEDS ORDERED: predniSONE 20 MG TAB PO SCH (07:00)
[2020-09-01 07:11] VITALS: BP 122/57
[2020-09-01] MEDS: RT--FLUTICASONE/SALMETEROL 113-14 (AIRDUO RespiCLICK) IH SCH (07:11)
[2020-09-01] MEDS: RT-ALBUTEROL/IPRATROPIUM 3 ML (DUONEB) VIAL INH SCH (07:11)
[2020-09-01] MEDS: GABAPENTIN 300 MG (NEURONTIN) CAP PO SCH ×2 (08:45→12:16)
[2020-09-01] MEDS: SINEMET CR 50/200 (CARBIDOPA/LEVODOPA SA) TAB PO SCH ×2 (08:45→12:16)
[2020-09-01] MEDS: risperiDONE 0.25 MG (RisperDAL) TAB PO SCH (08:45)
[2020-09-01] MEDS: FAMOTIDINE 20 MG (PEPCID) TABLET GT SCH (08:45)
[2020-09-01] MEDS: LACTULOSE SYRUP 10GM/15ML (ENULOSE) 30ML UDC PO SCH (08:46)
[2020-09-01] MEDS: FLUTICASONE NASAL SPRAY (FLONASE) 16 GM BTL NS SCH ×2 (09:00→12:19)
[2020-09-01] MEDS ORDERED: lisINopril 5 MG (PRINIVIL) TABLET PO SCH (09:00)
[2020-09-01] MEDS ORDERED: PARoxetine 20 MG (PAXIL) TAB PO SCH (09:00)
[2020-09-01] MEDS ORDERED: BISACODYL 10 MG SUPP (DULCOLAX) PR SCH (09:00)
[2020-09-01] MEDS ORDERED: ENOXAPARIN 40 MG/0.4 ML (LOVENOX) SYR SC SCH (09:00)
[2020-09-01 12:30] VITALS: BP 122/57
== END 2020-09-01 14:05 | disposition home health service (06) | DRG 870 ==
LOC: ICU 23:23 → 4TH 08-27 14:16
PROVIDERS: ADMIT Internal Medicine; ATTEND Internal Medicine
PROC: 5A1955Z Respiratory Ventilation, Greater than 96 Consecutive Hours (ICD-10-PCS; principal; 2020-08-13)
PROC: 0BH17EZ Insertion of Endotracheal Airway into Trachea, Via Natural or Artificial Opening (ICD-10-PCS; 2020-08-13)
DX: A41.1 Sepsis due to other specified staphylococcus (principal); R65.21 Severe sepsis with septic shock; J15.29 Pneumonia due to other staphylococcus; J14 Pneumonia due to Hemophilus influenzae; J96.00 Acute respiratory failure, unspecified whether with hypoxia or hypercapnia; S52.602A Unspecified fracture of lower end of left ulna, initial encounter for closed fracture; J44.0 Chronic obstructive pulmonary disease with (acute) lower respiratory infection; J44.1 Chronic obstructive pulmonary disease with (acute) exacerbation; E87.2 Acidosis; E87.0 Hyperosmolality and hypernatremia; A41.3 Sepsis due to Hemophilus influenzae; I48.0 Paroxysmal atrial fibrillation; G20 Parkinson's disease; E87.70 Fluid overload, unspecified; W19.XXXA Unspecified fall, initial encounter; R41.0 Disorientation, unspecified; R00.1 Bradycardia, unspecified; F17.210 Nicotine dependence, cigarettes, uncomplicated; I10 Essential (primary) hypertension; N40.0 Benign prostatic hyperplasia without lower urinary tract symptoms; M19.91 Primary osteoarthritis, unspecified site; Z87.01 Personal history of pneumonia (recurrent); Z88.6 Allergy status to analgesic agent
CPT/HCPCS: 36415; 36569; 70450; 71045; 73110; 76937; 80048; 80053; 80202; 82805; 82947; 83605; 83735; 83880; 84100; 84145; 84478; 85007; 85025; 85027; 87040; 87070; 87077; 87185; 87205; 93005; 93306; 94002; 94003; 94640; 94664; 94760; 94761; 94799

== ENCOUNTER 2020-09-11 11:00 | Outpatient (RCR) | payer MEDICARE ==
[~2020-09-11 11:00] MED LIST: CARB1TAB40 PO; FLUT1DIS26 INH; FLUT9.9S NS; GABA300C PO; IBUP-1780 PO; LISI-729 PO; LOVA20TA2 PO; MIRT-68 PO; PARO20TA5 PO; PRED10TA22 PO; RT-ALBUINH IH; TIZA-169 PO
== END 2020-12-10 | disposition home or self-care (01) ==
LOC: CARD 11:00
PROVIDERS: ATTEND Internal Medicine
DX: J44.9 Chronic obstructive pulmonary disease, unspecified (principal); I10 Essential (primary) hypertension; I48.91 Unspecified atrial fibrillation
CPT/HCPCS: 93225; 93226

== ENCOUNTER → 2021-11-26 | Outpatient (CLI) | payer MEDICARE ==
[~2021-11-26] MED LIST changes: -LISI-729 PO; +LISI5TAB20 PO
--- NOTE | 2021-11-26 09:04 | Diagnostic Imaging Report ---
EXAMINATION: Right hip unilateral 2 or 3 views (w/pelvis when done) HISTORY: Hip pain after fall COMPARISON: None available. FINDINGS: There are no fractures or dislocations. Joint spaces appear preserved. Soft tissues unremarkable. IMPRESSION: 1. No acute osseous abnormality. Dictated by: Dictated on workstation # [id number]
== END ==
LOC: RAD FS 08:34
PROVIDERS: ATTEND Family Medicine
DX: M25.551 Pain in right hip (principal); W19.XXXA Unspecified fall, initial encounter
CPT/HCPCS: 73502

== ENCOUNTER → 2021-12-30 | Outpatient (CLI) | payer MEDICARE, OTHER ==
--- NOTE | 2021-12-30 18:23 | Diagnostic Imaging Report ---
EXAMINATION: Lumbar spine radiographs. EXAM DATE: 12/30/2021 11:19 AM. COMPARISON: None available. HISTORY: Low back pain, chronic. TECHNIQUE: 3 views. FINDINGS: There is no acute fracture, dislocation, or destructive osseous process. Vertebral body heights and alignment are normal. Disc heights are preserved. There is multilevel facet hypertrophy. Mild multilevel lumbar spondylosis. IMPRESSION: Degenerative changes of the lumbar spine without acute osseous abnormality. Dictated by: Dictated on workstation # [id number]
--- NOTE | 2021-12-30 19:07 | Diagnostic Imaging Report ---
EXAMINATION: Radiographs of the sacrum and coccyx, 4 images. COMPARISON: None. HISTORY: 71-year-old male, sacral pain. FINDINGS: The pubic symphysis and sacroiliac joints are normally aligned. There are no sacroiliac degenerative changes. The joint spaces of both hips are well preserved. There is no radiographically apparent fracture. There are facet degenerative changes at L3-L4, L4-L5, and L5-S1. There is moderate disc height loss at L5-S1. IMPRESSION: 1. Facet degenerative changes of the lower lumbar spine with moderate disc height loss at L5-S1. 2. Unremarkable appearance of the sacroiliac joints. 3. No identified acute osseous abnormality. Dictated by: Dictated on workstation # [id number]
== END ==
LOC: RAD FS 10:37
PROVIDERS: ATTEND Nurse Practitioner
DX: M47.816 Spondylosis without myelopathy or radiculopathy, lumbar region (principal); M51.37 Other intervertebral disc degeneration, lumbosacral region
CPT/HCPCS: 72100; 72220